=== PATIENT | female | born 1935 | race Caucasian/White ===

== ENCOUNTER 2016-08-11 15:33 | Observation (INO) ==
[2016-08-11] MEDS ORDERED: Ipratropium/Albuterol Neb 3 ML ONE (15:58)
[2016-08-11] MEDS ORDERED: Ipratropium/Albuterol Neb 3 ML IH ONE (16:04)
--- NOTE | 2016-08-11 16:07 | Emergency Department Note ---
Disposition Clinical Impression: Acute exacerbation of chronic obstructive airways disease Disposition: Admitted As Inpatient Condition: Fair Referrals: Haydee Blue DO [Primary Care Provider] - Forms: ED Satisfaction Letter Time of Disposition: 18:11 SOB HPI - General Chief Complaint: ED Shortness of Breath/Dyspnea Stated Complaint: COLT Time Seen by Provider: 08/11/16 16:00 Source: patient, family Limitations: no limitations Nursing Notes Reviewed: Yes Vital Signs Reviewed: Yes - History of Present Illness 81-year-old with history of COPD comes in with increasing shortness of breath. Patient did have a chest x-ray several days ago that was negative. Has increasing shortness of breath at this point in time consistent with her COPD. Pt Subjective Complaint: shortness of breath Onset (ago): day(s) Severity: moderate Consistency/Duration: constant Known history of: COPD Associated symptoms: Reports: cough, wheezing. Denies: chest pain, fever Treatment prior to arrival: none Cough Description: Involuntary Cough Frequency: Intermittent - Related Data Home Medications Medication Instructions Recorded Confirmed Albuterol Sulfate [Albuterol 1 puff IH DAILY PRN 07/19/15 10/04/15 Inhaler] Aspirin [Adult Low Dose Aspirin EC] 81 mg PO DAILY 09/18/15 10/04/15 Cholecalciferol (Vitamin D3) 1,000 unit PO DAILY 09/18/15 10/04/15 [Vitamin D3] Budesonide/Formoterol 80/4.5 1 puff IH 08/04/16 [Symbicort 80/4.5] Docusate Sodium [Stool Softener] 50 mg PO 08/04/16 08/04/16 FLUoxetine HCl [PROzac] 10 mg PO 08/04/16 Ipratropium/Albuterol Sulfate 4 gm IH 08/04/16 [Combivent Respimat Inhal [place]] Previous Rx's Medication Instructions Recorded Albuterol Neb [Proventil Neb] 2.5 mg IH Q8HR #25 inhsol 07/19/15 Albuterol Sulfate [Albuterol 2 puff IH QID #1 inhaler 08/04/16 Inhaler] Benzonatate [Tessalon] 200 mg PO TID PRN #20 capsule 08/04/16 Doxycycline 100 mg PO BID #14 capsule 08/04/16 PredniSONE 20 mg PO BID #10 tablet 08/04/16 Allergies Allergy/AdvReac Type Severity Reaction Status Date / Time No Known Allergies Allergy Verified 08/04/16 14:51 Constitutional: Denies: fever, chills, weakness, weight change Eyes: Denies: eye pain, eye discharge, vision change ENT ED: Denies: ear pain, throat pain, dental pain, hearing loss, epistaxis, congestion, dysphagia Cardiovascular: Reports: dyspnea on exertion. Denies: chest pain, palpitations , edema, syncope Respiratory: Reports: dyspnea. Denies: cough, wheezes, hemoptysis, stridor Gastrointestinal: Denies: abdominal pain, nausea, vomiting, diarrhea, constipation, hematemesis, melena, hematochezia Genitourinary: Denies: dysuria, frequency, hematuria, discharge Musculoskeletal: Denies: back pain, neck pain, arthralgia, myalgia Integumentary: Denies: rash, abrasion, lesions Neurological: Denies: headache, weakness, numbness, paresthesias, confusion, abnormal gait, vertigo Psychiatric: Denies: anxiety, depression, suicidal thoughts, homicidal thoughts , auditory hallucinations, visual hallucinations Endocrine: Denies: fatigue Hematological/Lymphatic: Denies: easy bleeding, easy bruising Allergic/Immunologic: Denies: facial swelling, urticaria Past Medical History - Past Medical History Medical history: Reports: COPD Surgical history: Reports: appendectomy, other Psychiatric history: Reports: no psych history [employer] history: Reports: no [employer] C[employer]TER history - Social History Smoking Status: Current some day smoker Smokeless Tobacco Status: No Alcohol use: Reports: none Drug use: Reports: none Physical Exam - General Limitations: no limitations General appearance: alert - Head Head exam: atraumatic, normocephalic, normal inspection - Eye Eye exam: Present: normal appearance, PERRL, EOMI - ENT ENT exam: normal exam, normal oropharynx, mucous membranes moist - Neck Neck exam: Present: normal inspection, full ROM, trachea midline - Chest Chest inspection: Present: normal inspection, symmetric chest wall rise - Respiratory Respiratory exam: Present: wheezes, accessory muscle use, prolonged expiratory phase - Cardiovascular Cardiovascular exam: Present: regular rate, normal rhythm, normal heart sounds - Abdominal Exam Abdominal exam: Present: soft, Non-Tender. Absent: tenderness, distention, guarding, rebound, rigidity - Extremities Exam Extremities exam: Present: normal inspection, full ROM. Absent: tenderness, pedal edema - Expanded Lower Extremity Exam Neurovascular/Tendon exam: Absent: motor deficit, sensory deficit, tendon deficit Gait: observed and normal - Back Exam Back exam: Present: normal inspection, full ROM. Absent: tenderness - Neurological Exam Neurological exam: Present: alert, oriented X3 - Psychiatric Psychiatric exam: Present: normal affect, normal mood - Skin Skin exam: Present: warm, dry, intact, normal color Course - Reevaluation(s) Reevaluation #1: 81-year-old COPD or comes in with increasing shortness of breath last couple days. Moderate distress on arrival. Given a couple treatments with some improvement. Chest x-ray shows no pneumonia we'll admit with COPD exacerbation. Time: 18:10 - Consultations Consultation #1: Discussed with , admit Time: 18:10 Vital Signs Temperature 98.4 F 08/11/16 15:34 Pulse Rate 78 08/11/16 15:34 Respiratory Rate 18 08/11/16 15:34 Blood Pressure 136/72 08/11/16 15:34 O2 Sat by Pulse Oximetry 97 08/11/16 15:34 Temperature 98.4 F 08/11/16 15:34 Pulse Rate 109 08/11/16 16:48 Respiratory Rate 18 08/11/16 16:48 Blood Pressure 140/64 08/11/16 16:48 O2 Sat by Pulse Oximetry 97 08/11/16 16:48 Oxygen Delivery Oxygen Delivery Nasal Cannula Shortness of Breath/Dyspnea - Lab Data Lab results reviewed: Yes I reviewed the patient's lab results. Result diagrams: 08/11/16 16:29 08/11/16 16:29 Lab Results 08/11/16 08/11/16 08/11/16 Range/Units 16:29 16:29 16:29 WBC 9.3 (4.3-11.1) K/mcL RBC 4.90 (3.82-4.97) M/mcL Hgb 14.2 (11.5-15.4) g/dL Hct 44.0 (35.3-44.9) % MCV 89.8 (83.0-100.0) fL MCH 29.0 (28.0-33.3) pg MCHC 32.3 (31.6-35.5) g/dL RDW 13.6 (11.5-14.5) % Plt Count 283 (140-400) K/mcL MPV 9.4 (9.4-12.4) fL Immature Gran % 0.6 (0-4) % Seg Neutrophils % 77.1 % Lymphocytes % 13.9 % Monocytes % 7.3 % Eosinophils % 0.9 % Basophils % 0.2 % Neutrophils # 7.2 (1.6-8.9) K/mcL Lymphocytes # 1.3 (0.6-4.6) K/mcL Monocytes # 0.7 (0.0-1.3) K/mcL Eosinophils # 0.1 (0.0-0.6) K/mcL Basophils # 0.0 (0.0-0.2) K/mcL Sodium 133 L (136-145) mEq/L Potassium 4.4 (3.5-4.5) mEq/L Chloride 94 L (98-109) mEq/L Carbon Dioxide 30 H (19-29) mEq/L BUN 31 H (7-20) mg/dL Creatinine 0.77 (0.57-1.11) mg/dL Est GFR ( Amer) > 60 (> 60) Est GFR (Non-Af Amer) > 60 (> 60) BUN/Creatinine Ratio 40 H (6-26) Glucose 91 (70-99) mg/dL Calculated Osmolality 282 (280-300) Lactic Acid 1.2 (0.5-2.2) mmol/L Calcium 9.0 (8.6-10.8) mg/dL Troponin I (0-0.03) ng/mL B-Natriuretic Peptide (0-100) pg/mL 08/11/16 08/11/16 Range/Units 16:29 16:29 WBC (4.3-11.1) K/mcL RBC (3.82-4.97) M/mcL Hgb (11.5-15.4) g/dL Hct (35.3-44.9) % MCV (83.0-100.0) fL MCH (28.0-33.3) pg MCHC (31.6-35.5) g/dL RDW (11.5-14.5) % Plt Count (140-400) K/mcL MPV (9.4-12.4) fL Immature Gran % (0-4) % Seg Neutrophils % % Lymphocytes % % Monocytes % % Eosinophils % % Basophils % % Neutrophils # (1.6-8.9) K/mcL Lymphocytes # (0.6-4.6) K/mcL Monocytes # (0.0-1.3) K/mcL Eosinophils # (0.0-0.6) K/mcL Basophils # (0.0-0.2) K/mcL Sodium (136-145) mEq/L Potassium (3.5-4.5) mEq/L Chloride (98-109) mEq/L Carbon Dioxide (19-29) mEq/L BUN (7-20) mg/dL Creatinine (0.57-1.11) mg/dL Est GFR ( Amer) (> 60) Est GFR (Non-Af Amer) (> 60) BUN/Creatinine Ratio (6-26) Glucose (70-99) mg/dL Calculated Osmolality (280-300) Lactic Acid (0.5-2.2) mmol/L Calcium (8.6-10.8) mg/dL Troponin I 0.01 (0-0.03) ng/mL B-Natriuretic Peptide 113 H (0-100) pg/mL - Radiology Data Radiology results reviewed: Yes I reviewed the patient's radiology results. Chest X-Ray 08/11/16 16:04 IMPRESSION: No evidence of acute cardiopulmonary process. Findings consistent with COPD. D/ /11/2016 16:16:59 Mague Tillman MD / Kylie Abarca Interpreting Provider: Mague Tillman MD
[2016-08-11] MEDS ORDERED: methylPREDNISolone 125 MG/2 ML VIAL IVP ONE (16:09)
[2016-08-11 16:42] LABS: Basophils % 0.2 %; Eosinophils # 0.1 K/mcL (0.0-0.6); Eosinophils % 0.9 %; Hemoglobin 14.2 g/dL (11.5-15.4); Immature Granulocytes % 0.6 % (0-4); Lymphocytes # 1.3 K/mcL (0.6-4.6); Lymphocytes % 13.9 %; Mean Corpuscular HGB Conc 32.3 g/dL (31.6-35.5); Mean Corpuscular Volume 89.8 fL (83.0-100.0); Mean Platelet Volume 9.4 fL (9.4-12.4); Monocytes # 0.7 K/mcL (0.0-1.3); Monocytes % 7.3 %; Neutrophils # 7.2 K/mcL (1.6-8.9); Platelet Count 283 K/mcL (140-400); Red Cell Distribution Width 13.6 % (11.5-14.5); Segmented Neutrophils % 77.1 %
[2016-08-11 16:53] LABS: BUN/Creatinine Ratio 40 (6-26); Blood Urea Nitrogen 31 mg/dL (7-20); Carbon Dioxide 30 mEq/L (19-29); Chloride 94 mEq/L (98-109); Glucose 91 mg/dL (70-99); Potassium 4.4 mEq/L (3.5-4.5); Sodium 133 mEq/L (136-145); eGFR For African Americans > 60 (> 60); eGFR For Non-African Americans > 60 (> 60)
[2016-08-11 16:54] LABS: Osmolality,Calculated 282 (280-300)
[2016-08-11] MEDS ORDERED: Ibuprofen 400 MG TABLET PO PRN (21:34)
[2016-08-11] MEDS ORDERED: Naloxone 0.4 MG/ML INJ IVP PRN (21:34)
[2016-08-11] MEDS ORDERED: Ipratropium/Albuterol Neb 3 ML IH SCH (21:36)
[2016-08-11] MEDS ORDERED: Albuterol 2.5 MG/3 ML NEBULIZER IH PRN (21:36)
[2016-08-11] MEDS: Budesonide/Formoterol 160/4.5 MDI IH SCH (22:05)
[2016-08-11] MEDS: Ipratropium/Albuterol Neb 3 ML IH SCH (22:05)
--- NOTE | 2016-08-11 22:07 | Internal Med History&Physical ---
<Nelia Lazaro M - Last Filed: 08/11/16 22:32> Date of Encounter: 08/11/16 Time of Encounter: 22:03 Assessment and Plan (1) Acute exacerbation of chronic obstructive airways disease Current visit: Yes Status: Acute Patient reports she started feeling ill last Sunday with increased shortness of breath and cough. She visited urgent care and her PCP in the last week where she received steroid injections and breathing treatments. She continues to have shortness of breath reports coughing is not as bad she is satting 97% on 2 L but she is tachypneic with respiration rate about 24. She wears 2 L of oxygen at home at baseline. Chest x-ray showed normal pulmonary vasculature no focal consolidation hyperinflated lungs and flattening of hemidiaphragm consistent with COPD. She received DuoNeb treatment and on and 25 mg of IV push Solu-Medrol in the emergency department. 60 mg Solu-Medrol IV push twice a day BiPAP overnight and oxygen per nasal cannula titrate oxygen to maintain saturation between 88-92% DuoNeb treatments 4 times a day Albuterol nebulizer every 2 hours when necessary guafenisin twice a day Will check CRP, if elevated, consider antibiotic treatment (2) Smoker Current visit: No Status: Acute Patient reports she quit smoking last Sunday. Offered congratulations and encouragement. Continue offering patient support for her smoking cessation goals (3) DVT prophylaxis Current visit: No Status: Acute Ambulate with assist as tolerated Antiembolic stockings Lovenox 40 mg subcutaneous daily Internal Medicine - H&P: HPI Chief complaint: shortness of breath Admitted From: Emergency Dept Plans for Post Hospital Care: Home History of present illness: Ms. Boyer is a 81 year old female with COPD presented to the emergency department with increasing shortness of breath, cough, wheezing. She reports she started feeling ill last Sunday in to urgent care where she was treated for bronchitis steroid injection and breathing treatment. She continued to feel ill visit her PCP earlier this week where she had another steroid injection. Patient reports she needs to sit up to sleep and was unable to sleep last night due to her shortness of breath. She reports she has not been coughing very much in the last several days. Evaluation in the ED revealed normal white blood cell count of 9.3, lactic acid of 1.2, slightly elevated BNP of 113, normal troponin of 0.01. Chest x-ray showed normal pulmonary vasculature, no focal consolidation, hyperinflated lungs with flattening of hemidiaphragms, consistent with COPD. No evidence of pleural effusion or pneumothorax. She was given 125 mg of IV push Solu-Medrol, DuoNeb treatment. On exam patient is alert and oriented, she is tachypneic with respiration rate of approximately 24. She is satting 97% on 2 L. Lungs sound clear to auscultation. Heart is regular rate and rhythm. Past Med Surg Social Fam HX - Past Medical History Medical history: COPD Psychiatric history: no psych history - Past Surgical History Surgical History: appendectomy, other, vascular surgery - Social History Smoking Status: Former smoker Smokeless Tobacco Status: No Alcohol use: none Drug use: none - Family History Daughter Name: Kylie Edwards Age: 62 Living Status: Still Living Hx Family Cardiac Disorders: No Hx Family Respiratory Disorders: No Hx Family Cancer: No Hx Family GI Disorders: No Hx Family Genitourinary Disorders: No Hx Family Endocrine Disorder: No Hx Family Musculoskeletal Disorders: No Hx Family Neuromuscular Disorders: No Hx Family Neurologic Disorders: No Hx Family HEENT Disorders: No Hx Family Autoimmune Disorders: Yes (Rhuemitoid Arthritis) Hx Family Reproductive Disorders: No Hx Family Psychosocial Disorders: No Hx Family Medical Disorders: No Internal Medicine - H&P: Meds Aspirin [Adult Low Dose Aspirin EC] 81 mg PO DAILY 09/18/15 [History] Cholecalciferol (Vitamin D3) [Vitamin D3] 2,000 unit PO DAILY 09/18/15 [History] FLUoxetine HCl [PROzac] 10 mg PO QAM 08/04/16 [History] Ipratropium/Albuterol Sulfate [Combivent Respimat Inhal [place]] 1 puff IH QID PRN 08/04/16 [History] Acetaminophen/Diphenhydramine [Acetaminophen Pm [place]] 1 each PO HS 08/11/16 [ History] Albuterol Sulfate [Albuterol Inhaler] 2 puff IH Q4H PRN 08/11/16 [History] Budesonide/Formoterol 160/4.5 [Symbicort 160/4.5] 2 puff IH BIDR 08/11/16 [ History] Ipratropium/Albuterol Neb [Duoneb] 3 ml IH Q4H PRN 08/11/16 [History] Naproxen Sodium [Aleve] 220 mg PO Q12H PRN 08/11/16 [History] Allergies No Known Allergies Allergy (Verified 08/04/16 14:51) All Systems PM: A 10-system review of systems was performed and is negative for pertinent findings except as documented above in the HPI. - Constitutional Constitutional: no chills, no fever(s), no night sweats - EENT Eyes: no change in vision, no discharge, no pain, no photophobia Ears: no ear discharge, no ear pain, no tinnitus Nose, mouth and throat: no dysphagia, no nasal discharge, no neck pain, no sore throat - Cardiovascular Cardiovascular ROS IM: dyspnea, dyspnea on exertion, no chest pain, no diaphoresis, no lightheadedness, no palpitations, no syncope - Respiratory Respiratory: cough, dyspnea, dyspnea on exertion, wheezing, no excessive phlegm production - Gastrointestinal Gastrointestinal: no abdominal pain, no diarrhea, no hematemesis, no hematochezia, no melena, no nausea, no vomiting - Genitourinary Genitourinary: no change in urinary stream, no dysuria, no flank pain, no hematuria - Musculoskeletal Musculoskeletal ROS IM: no numbness, no tingling - Integumentary Integumentary IM: no rash, no unusual bruising - Neurological Neurological ROS: no confusion, no convulsions, no focal weakness, no numbness, no tingling, no tremor(s) - Hematologic/Lymphatic Hematologic/Lymphatic: no easy bruising - Constitutional Vitals: Temp Pulse Resp BP Pulse Ox 97.7 F 107 19 156/71 95 08/11/16 19:26 08/11/16 19:26 08/11/16 19:26 08/11/16 19:26 08/11/16 19:26 General appearance: Present: A&O X 3, no acute distress - Head Head exam: Present: atraumatic, normocephalic - Eye Eye exam: Present: PERRL, conjuntiva pink, sclera anicteric Pupils: Present: PERRL - Neck Neck exam general surgery: Present: supple, trachea midline. Absent: lymphadenopathy - Respiratory Respiratory exam: Present: CTAB, prolonged expiratory phase, tachypnea. Absent : accessory muscle use, rales, rhonchi, wheezes - Cardiovascular Cardiovascular exam: Present: RRR, +S1, +S2. Absent: diastolic murmur, gallop, rubs, systolic murmur - GI/Abdominal GI/Abdominal exam: Present: normal bowel sounds, soft, no peritoneal signs. Absent: distended, tenderness - Extremities Exam Extremities exam: Present: warm, radial pulses palpable and symetrical. Absent : calf tenderness, cyanotic, pedal edema - Neurological Exam Neurological exam: Present: CN II-XII intact, oriented X3, no focal deficits. Absent: facial droop, speech deficit - Skin Skin exam: Present: dry, intact Internal Med - H&P Results - Labs CBC & Chem 7: 08/11/16 16:29 08/11/16 16:29 Labs: All Lab Results (24 Hours) 08/11/16 08/11/16 08/11/16 Range/Units 16:29 16:29 16:29 WBC 9.3 (4.3-11.1) K/mcL RBC 4.90 (3.82-4.97) M/mcL Hgb 14.2 (11.5-15.4) g/dL Hct 44.0 (35.3-44.9) % MCV 89.8 (83.0-100.0) fL MCH 29.0 (28.0-33.3) pg MCHC 32.3 (31.6-35.5) g/dL RDW 13.6 (11.5-14.5) % Plt Count 283 (140-400) K/mcL MPV 9.4 (9.4-12.4) fL Immature Gran % 0.6 (0-4) % Seg Neutrophils % 77.1 % Lymphocytes % 13.9 % Monocytes % 7.3 % Eosinophils % 0.9 % Basophils % 0.2 % Neutrophils # 7.2 (1.6-8.9) K/mcL Lymphocytes # 1.3 (0.6-4.6) K/mcL Monocytes # 0.7 (0.0-1.3) K/mcL Eosinophils # 0.1 (0.0-0.6) K/mcL Basophils # 0.0 (0.0-0.2) K/mcL Sodium 133 L (136-145) mEq/L Potassium 4.4 (3.5-4.5) mEq/L Chloride 94 L (98-109) mEq/L Carbon Dioxide 30 H (19-29) mEq/L BUN 31 H (7-20) mg/dL Creatinine 0.77 (0.57-1.11) mg/dL Est GFR ( Amer) > 60 (> 60) Est GFR (Non-Af Amer) > 60 (> 60) BUN/Creatinine Ratio 40 H (6-26) Glucose 91 (70-99) mg/dL Calculated Osmolality 282 (280-300) Lactic Acid 1.2 (0.5-2.2) mmol/L Calcium 9.0 (8.6-10.8) mg/dL Troponin I (0-0.03) ng/mL B-Natriuretic Peptide (0-100) pg/mL 08/11/16 08/11/16 Range/Units 16:29 16:29 WBC (4.3-11.1) K/mcL RBC (3.82-4.97) M/mcL Hgb (11.5-15.4) g/dL Hct (35.3-44.9) % MCV (83.0-100.0) fL MCH (28.0-33.3) pg MCHC (31.6-35.5) g/dL RDW (11.5-14.5) % Plt Count (140-400) K/mcL MPV (9.4-12.4) fL Immature Gran % (0-4) % Seg Neutrophils % % Lymphocytes % % Monocytes % % Eosinophils % % Basophils % % Neutrophils # (1.6-8.9) K/mcL Lymphocytes # (0.6-4.6) K/mcL Monocytes # (0.0-1.3) K/mcL Eosinophils # (0.0-0.6) K/mcL Basophils # (0.0-0.2) K/mcL Sodium (136-145) mEq/L Potassium (3.5-4.5) mEq/L Chloride (98-109) mEq/L Carbon Dioxide (19-29) mEq/L BUN (7-20) mg/dL Creatinine (0.57-1.11) mg/dL Est GFR ( Amer) (> 60) Est GFR (Non-Af Amer) (> 60) BUN/Creatinine Ratio (6-26) Glucose (70-99) mg/dL Calculated Osmolality (280-300) Lactic Acid (0.5-2.2) mmol/L Calcium (8.6-10.8) mg/dL Troponin I 0.01 (0-0.03) ng/mL B-Natriuretic Peptide 113 H (0-100) pg/mL <Paula Narayanan - Last Filed: 08/12/16 19:35> Date of Encounter: 08/11/16 Internal Medicine - H&P: HPI History of present illness: Ms. Boyer is a 81 year old female All Systems PM: A 10-system review of systems was performed and is negative for pertinent findings except as documented above in the HPI. - Constitutional Vitals: Temp Pulse Resp BP Pulse Ox 97.5 F L 103 17 98/66 95 08/12/16 18:52 08/12/16 18:52 08/12/16 18:52 08/12/16 18:52 08/12/16 18:52 Internal Med - H&P Results - Labs CBC & Chem 7: 08/12/16 04:29 08/12/16 04:29 Labs: Short CBC 08/12/16 Range/Units 04:29 WBC 5.0 (4.3-11.1) K/mcL Hgb 13.9 (11.5-15.4) g/dL Hct 42.6 (35.3-44.9) % Plt Count 287 (140-400) K/mcL Neutrophils # 4.1 (1.6-8.9) K/mcL BMP 08/12/16 04:29 Sodium 134 L Potassium 5.2 H Chloride 94 L Carbon Dioxide 30 H BUN 23 H Creatinine 0.75 Glucose 139 H Calcium 9.0 - Attending Attestation I examined this patient and my medical decision-making was reviewed with the TANK BUILDER HELPER/PA/Advanced Practice Nurse/Resident Physician. I agree with the documented findings, disposition and treatment plan as described except to the extent set forth below. 81 Y/F with h/o COPD, chronic resp failure - presents with shortness of breath. No significant expectoration. wheeze on exam. Treat for COPD exacerbation and acute on chronic resp failure. Steroids, bronchodilators, mucinex. Does not seem infective exacerbation at this time, and hence no antibiotics started.
[2016-08-12] MEDS: Ipratropium/Albuterol Neb 3 ML IH SCH ×4 (04:10→22:36)
[2016-08-12 04:54] LABS: Basophils % 0.2 %; Hematocrit 42.6 % (35.3-44.9); Hemoglobin 13.9 g/dL (11.5-15.4); Immature Granulocytes % 0.6 % (0-4); Lymphocytes # 0.8 K/mcL (0.6-4.6); Lymphocytes % 15.2 %; Mean Corpuscular HGB Conc 32.6 g/dL (31.6-35.5); Mean Corpuscular Hemoglobin 29.1 pg (28.0-33.3); Mean Corpuscular Volume 89.3 fL (83.0-100.0); Mean Platelet Volume 9.6 fL (9.4-12.4); Monocytes # 0.1 K/mcL (0.0-1.3); Monocytes % 1.4 %; Neutrophils # 4.1 K/mcL (1.6-8.9); Platelet Count 287 K/mcL (140-400); Red Blood Count 4.77 M/mcL (3.82-4.97); Red Cell Distribution Width 13.6 % (11.5-14.5); Segmented Neutrophils % 82.6 %
[2016-08-12 05:22] LABS: BUN/Creatinine Ratio 31 (6-26); Blood Urea Nitrogen 23 mg/dL (7-20); Carbon Dioxide 30 mEq/L (19-29); Chloride 94 mEq/L (98-109); Glucose 139 mg/dL (70-99); Osmolality,Calculated 284 (280-300); Potassium 5.2 mEq/L (3.5-4.5); Sodium 134 mEq/L (136-145); eGFR For African Americans > 60 (> 60); eGFR For Non-African Americans > 60 (> 60)
[2016-08-12 05:33] LABS: Platelet Estimate Normal (Normal); Reactive Lymphocytes Present (Not Present)
[2016-08-12] MEDS: *HR* Enoxaparin 40 MG/0.4 ML SYRINGE SQ SCH (06:32)
[2016-08-12] MEDS: FLUoxetine HCl 10 MG CAPSULE PO SCH (09:07)
[2016-08-12] MEDS: Aspirin Enteric Coated 81 MG Tablet PO SCH (09:08)
[2016-08-12] MEDS ORDERED: NON-FORMULARY MEDICATION 1 EACH EACH (Ipratropium/Albuterol Sulfate [Combivent Respimat In IH PRN (09:52)
[2016-08-12] MEDS ORDERED: Magnesium Sulfate 1 GM in D5% in Water 100 ML IVPB ONE (09:56)
[2016-08-12] MEDS ORDERED: Ipratropium 1 PUFF INHALER IH PRN (09:58)
[2016-08-12] MEDS: Budesonide/Formoterol 160/4.5 MDI IH SCH ×2 (10:03→22:35)
[2016-08-12] MEDS: methylPREDNISolone 125 MG/2 ML VIAL IVP SCH ×3 (11:35→23:55)
[2016-08-12] MEDS: Levofloxacin 500 MG/100 ML 500 MG/100 ML BAG IVPB SCH (11:36)
--- NOTE | 2016-08-12 19:37 | Internal Med Progress Note ---
Date of Encounter: 08/12/16 Time of Encounter: 10:00 - Subjective Interval history: Patient is 81-year-old female admitted as a COPD exacerbation. Past medical history is significant for COPD. Patient was seen and examined. She is awake alert and oriented 3. Still in acute respiratory distress. Vitals are stable. We will continue antibiotic, steroid, and bronchodilator treatment. Closely monitor patient (1) Acute exacerbation of chronic obstructive airways disease Current visit: Yes Status: Acute Patient reports she started feeling ill last Sunday with increased shortness of breath and cough. She visited urgent care and her PCP in the last week where she received steroid injections and breathing treatments. She continues to have shortness of breath reports coughing is not as bad she is satting 97% on 2 L but she is tachypneic with respiration rate about 24. She wears 2 L of oxygen at home at baseline. Chest x-ray showed normal pulmonary vasculature no focal consolidation hyperinflated lungs and flattening of hemidiaphragm consistent with COPD. She received DuoNeb treatment and on and 25 mg of IV push Solu-Medrol in the emergency department. 60 mg Solu-Medrol IV push twice a day BiPAP overnight and oxygen per nasal cannula titrate oxygen to maintain saturation between 88-92% DuoNeb treatments 4 times a day Albuterol nebulizer every 2 hours when necessary guafenisin twice a day Levaquin 500 daily (2) Smoker Current visit: No Status: Acute Patient reports she quit smoking last Sunday. Offered congratulations and encouragement. Continue offering patient support for her smoking cessation goals (3) DVT prophylaxis Current visit: No Status: Acute Ambulate with assist as tolerated Antiembolic stockings Lovenox 40 mg subcutaneous daily - Constitutional Vitals: Temp Pulse Resp BP Pulse Ox 97.5 F L 103 17 98/66 95 08/12/16 18:52 08/12/16 18:52 08/12/16 18:52 08/12/16 18:52 08/12/16 18:52 General appearance: Present: A&O X 3, no acute distress - Head Head exam: Present: atraumatic, normocephalic - Eye Eye exam: Present: PERRL, conjuntiva pink, sclera anicteric Pupils: Present: PERRL - Neck Neck exam general surgery: Present: supple, trachea midline. Absent: lymphadenopathy - Respiratory Respiratory exam: Present: CTAB, wheezes (Diffused wheezes bilaterally). Absent : accessory muscle use, rales, rhonchi - Cardiovascular Cardiovascular exam: Present: RRR, +S1, +S2. Absent: diastolic murmur, gallop, rubs, systolic murmur - GI/Abdominal GI/Abdominal exam: Present: normal bowel sounds, soft, no peritoneal signs. Absent: distended, tenderness - Extremities Exam Extremities exam: Present: warm, radial pulses palpable and symetrical. Absent : calf tenderness, cyanotic, pedal edema - Neurological Exam Neurological exam: Present: CN II-XII intact, oriented X3, no focal deficits. Absent: pronater drift, facial droop, speech deficit - Skin Skin exam: Present: dry, intact Internal Medicine: Result - Labs CBC & Chem 7: 08/12/16 04:29 08/12/16 04:29 Labs: Short CBC 08/12/16 Range/Units 04:29 WBC 5.0 (4.3-11.1) K/mcL Hgb 13.9 (11.5-15.4) g/dL Hct 42.6 (35.3-44.9) % Plt Count 287 (140-400) K/mcL Neutrophils # 4.1 (1.6-8.9) K/mcL BMP 08/12/16 04:29 Sodium 134 L Potassium 5.2 H Chloride 94 L Carbon Dioxide 30 H BUN 23 H Creatinine 0.75 Glucose 139 H Calcium 9.0 - VTE Documentation of Mechanical Device: Graduated compression elastic hosiery Consult Discharge Plan - Plan Referrals: Haydee Blue DO [Primary Care Provider] -
[2016-08-12] MEDS ORDERED: methylPREDNISolone 125 MG/2 ML VIAL IVP SCH (23:55)
[2016-08-13] MEDS: Ipratropium/Albuterol Neb 3 ML IH SCH ×4 (03:24→21:29)
[2016-08-13] MEDS: methylPREDNISolone 125 MG/2 ML VIAL IVP SCH (06:29)
[2016-08-13] MEDS: *HR* Enoxaparin 40 MG/0.4 ML SYRINGE SQ SCH (06:29)
[2016-08-13 07:34] LABS: Basophils % 0.1 %; Hematocrit 42.6 % (35.3-44.9); Hemoglobin 13.5 g/dL (11.5-15.4); Immature Granulocytes % 0.7 % (0-4); Lymphocytes # 0.8 K/mcL (0.6-4.6); Lymphocytes % 8.8 %; Mean Corpuscular HGB Conc 31.7 g/dL (31.6-35.5); Mean Corpuscular Hemoglobin 28.7 pg (28.0-33.3); Mean Corpuscular Volume 90.4 fL (83.0-100.0); Mean Platelet Volume 9.7 fL (9.4-12.4); Monocytes # 0.3 K/mcL (0.0-1.3); Monocytes % 2.9 %; Neutrophils # 7.9 K/mcL (1.6-8.9); Platelet Count 317 K/mcL (140-400); Red Blood Count 4.71 M/mcL (3.82-4.97); Red Cell Distribution Width 13.6 % (11.5-14.5); Segmented Neutrophils % 87.5 %
[2016-08-13 07:46] LABS: BUN/Creatinine Ratio 32 (6-26); Blood Urea Nitrogen 25 mg/dL (7-20); Calcium 8.9 mg/dL (8.6-10.8); Carbon Dioxide 30 mEq/L (19-29); Chloride 96 mEq/L (98-109); Glucose 145 mg/dL (70-99); Osmolality,Calculated 287 (280-300); Potassium 4.4 mEq/L (3.5-4.5); Sodium 135 mEq/L (136-145); eGFR For African Americans > 60 (> 60); eGFR For Non-African Americans > 60 (> 60)
[2016-08-13] MEDS: FLUoxetine HCl 10 MG CAPSULE PO SCH (08:17)
[2016-08-13] MEDS: Aspirin Enteric Coated 81 MG Tablet PO SCH (08:18)
[2016-08-13] MEDS: Levofloxacin 500 MG/100 ML 500 MG/100 ML BAG IVPB SCH (08:18)
[2016-08-13] MEDS: Budesonide/Formoterol 160/4.5 MDI IH SCH ×2 (11:32→21:29)
[2016-08-13] MEDS: predniSONE 20 MG TABLET PO SCH (12:59)
--- NOTE | 2016-08-13 13:29 | Electrocardiograph Report ---
[place] [id number] Test Date: 2016-08-11 Pat Name: Tiana Boyer Department: 104 Room: 3B Gender: F Social Media Manager: : 1935 Requested By: Ron Leahy Order Number: [id number] Reading MD: Eladia France Measurements Intervals [place] Rate: 115 P: 72 ME: 173 QRS: 55 QRSD: 82 T: 70 QT: 316 QTc: 384 Interpretive Statements SINUS TACHYCARDIA WITH FREQUENT SUPRAVENTRICULAR PREMATURE COMPLEXES VENTRICULAR PREMATURE COMPLEXES ABNORMAL RHYTHM ECG Electronically Signed On 08-13-2016 13:28:05 EST by Eladia France
[2016-08-13] MEDS ORDERED: Ondansetron 4 MG/2 ML VIAL IVP PRN (18:19)
--- NOTE | 2016-08-13 18:48 | Internal Med Progress Note ---
Date of Encounter: 08/13/16 Time of Encounter: 10:00 - Assessment and plan (1) Acute exacerbation of chronic obstructive airways disease Current Visit: Yes Status: Acute (2) DVT prophylaxis Current Visit: No Status: Acute (3) Smoker Current Visit: No Status: Acute - Time Spent With Patient 25 - 35 minutes - Subjective Interval history: Patient is 81-year-old female admitted as a COPD exacerbation. Past medical history is significant for COPD. Patient was seen and examined. She is awake alert and oriented 3. Not in acute respiratory distress. Vitals are stable. We will continue antibiotic, steroid, and bronchodilator treatment. Taper down steroid to po. Closely monitor patient (1) Acute exacerbation of chronic obstructive airways disease Current visit: Yes Status: Acute Patient reports she started feeling ill last Sunday with increased shortness of breath and cough. She visited urgent care and her PCP in the last week where she received steroid injections and breathing treatments. She continues to have shortness of breath reports coughing is not as bad she is satting 97% on 2 L but she is tachypneic with respiration rate about 24. She wears 2 L of oxygen at home at baseline. Chest x-ray showed normal pulmonary vasculature no focal consolidation hyperinflated lungs and flattening of hemidiaphragm consistent with COPD. She received DuoNeb treatment and on and 25 mg of IV push Solu-Medrol in the emergency department. Prednisone 40mg po qd BiPAP overnight and oxygen per nasal cannula titrate oxygen to maintain saturation between 88-92% DuoNeb treatments 4 times a day Albuterol nebulizer every 2 hours when necessary guafenisin twice a day Levaquin 500 daily Clinically improved. (2) Smoker Current visit: No Status: Acute Patient reports she quit smoking last Sunday. Offered congratulations and encouragement. Continue offering patient support for her smoking cessation goals (3) DVT prophylaxis Current visit: No Status: Acute Ambulate with assist as tolerated Antiembolic stockings Lovenox 40 mg subcutaneous daily - Constitutional Vitals: Temp Pulse Resp BP Pulse Ox 97.8 F 110 28 175/87 96 08/13/16 15:25 08/13/16 15:25 08/13/16 16:37 08/13/16 15:25 08/13/16 16:37 General appearance: Present: A&O X 3, no acute distress - Head Head exam: Present: atraumatic, normocephalic - Eye Eye exam: Present: PERRL, conjuntiva pink, sclera anicteric Pupils: Present: PERRL - Neck Neck exam general surgery: Present: supple, trachea midline. Absent: lymphadenopathy - Respiratory Respiratory exam: Present: CTAB. Absent: accessory muscle use, rales, rhonchi, wheezes - Cardiovascular Cardiovascular exam: Present: RRR, +S1, +S2. Absent: diastolic murmur, gallop, rubs, systolic murmur - GI/Abdominal GI/Abdominal exam: Present: normal bowel sounds, soft, no peritoneal signs. Absent: distended, tenderness - Extremities Exam Extremities exam: Present: warm, radial pulses palpable and symetrical. Absent : calf tenderness, cyanotic, pedal edema - Neurological Exam Neurological exam: Present: CN II-XII intact, oriented X3, no focal deficits. Absent: pronater drift, facial droop, speech deficit - Skin Skin exam: Present: dry, intact Internal Medicine: Result - Labs CBC & Chem 7: 08/13/16 07:11 08/13/16 07:11 Labs: Short CBC 08/13/16 Range/Units 07:11 WBC 9.0 D (4.3-11.1) K/mcL Hgb 13.5 (11.5-15.4) g/dL Hct 42.6 (35.3-44.9) % Plt Count 317 (140-400) K/mcL Neutrophils # 7.9 (1.6-8.9) K/mcL BMP 08/13/16 07:11 Sodium 135 L Potassium 4.4 Chloride 96 L Carbon Dioxide 30 H BUN 25 H Creatinine 0.77 Glucose 145 H Calcium 8.9 - VTE Documentation of Mechanical Device: Graduated compression elastic hosiery Consult Discharge Plan - Plan Referrals: Haydee Blue DO [Primary Care Provider] -
[2016-08-13] MEDS ORDERED: Famotidine 20 MG/2 ML VIAL IVP ONE (22:23)
[2016-08-13] MEDS ORDERED: Benzonatate 100 MG CAPSULE PO PRN (22:23)
[2016-08-14] MEDS: Ipratropium/Albuterol Neb 3 ML IH SCH ×2 (03:28→11:25)
[2016-08-14] MEDS: *HR* Enoxaparin 40 MG/0.4 ML SYRINGE SQ SCH (06:30)
[2016-08-14] MEDS: FLUoxetine HCl 10 MG CAPSULE PO SCH (08:32)
[2016-08-14] MEDS: predniSONE 20 MG TABLET PO SCH (08:32)
[2016-08-14] MEDS: Aspirin Enteric Coated 81 MG Tablet PO SCH (08:32)
[2016-08-14] MEDS ORDERED: Famotidine 20 MG TABLET PO SCH ×2 (09:00)
[2016-08-14] MEDS ORDERED: Levofloxacin 250 MG/50 ML 250 MG/50 ML BAG IVPB SCH (09:00)
[2016-08-14 11:00] VITALS: BP 123/82
[2016-08-14] MEDS: Budesonide/Formoterol 160/4.5 MDI IH SCH (11:25)
--- NOTE | 2016-08-14 11:26 | Discharge Summary ---
Date of Encounter: 08/14/16 Time of Encounter: 10:30 - Discharge Diagnosis (1) Acute exacerbation of chronic obstructive airways disease Priority: Primary Status: Acute (2) DVT prophylaxis Priority: Secondary Status: Acute (3) Smoker Priority: Secondary Status: Acute - Discharge Medications Prescriptions: Levofloxacin [Levaquin] 250 mg PO DAILY #7 tablet PredniSONE 40 mg PO DAILY #14 tablet Home Medications: Aspirin [Adult Low Dose Aspirin EC] 81 mg PO DAILY 09/18/15 [History] Cholecalciferol (Vitamin D3) [Vitamin D3] 2,000 unit PO DAILY 09/18/15 [History] FLUoxetine HCl [Prozac] 10 mg PO QAM 08/04/16 [History] Ipratropium/Albuterol Sulfate [Combivent Respimat Inhal [place]] 1 puff IH QID PRN 08/04/16 [History] Acetaminophen/Diphenhydramine [Acetaminophen Pm Caplet] 1 each PO HS 08/11/16 [ History] Albuterol Sulfate [Albuterol Inhaler] 2 puff IH Q4H PRN 08/11/16 [History] Budesonide/Formoterol 160/4.5 [Symbicort 160/4.5] 2 puff IH BIDR 08/11/16 [ History] Ipratropium/Albuterol Neb [Duoneb] 3 ml IH Q4H PRN 08/11/16 [History] Naproxen Sodium [Aleve] 220 mg PO Q12H PRN 08/11/16 [History] Levofloxacin [Levaquin] 250 mg PO DAILY #7 tablet 08/14/16 [Rx] PredniSONE 40 mg PO DAILY #14 tablet 08/14/16 [Rx] Allergies/Adverse Reactions: Allergies No Known Allergies Allergy (Verified 08/04/16 14:51) Date of admission: 08/11/16 18:28 Primary care physician: Ursula Lott Consults: 08/14/16 09:11 Consult to Toggler [CONS] Routine Reason for SW Consult: pt has home o2 discharge planning. Discharging clinician: Briseyda Jefferson Anticipated date of discharge: 08/14/16 - Patient Status Disposition: Home, Self-Care Condition: Fair Functional capacity at discharge: uses cane/walker Overall status at discharge: patient is back to baseline - Discharge Instructions Follow Up With: Haydee Blue DO [Primary Care Provider] - - Diet and Activity Activity: increase activity as tolerated Diet: advance to your usual diet Interval History: Ms. Boyer is a 81 year old female with COPD presented to the emergency department with increasing shortness of breath, cough, wheezing. She reports she started feeling ill last Sunday in to urgent care where she was treated for bronchitis steroid injection and breathing treatment. She continued to feel ill visit her PCP earlier this week where she had another steroid injection. Patient reports she needs to sit up to sleep and was unable to sleep last night due to her shortness of breath. She reports she has not been coughing very much in the last several days. Evaluation in the ED revealed normal white blood cell count of 9.3, lactic acid of 1.2, slightly elevated BNP of 113, normal troponin of 0.01. Chest x-ray showed normal pulmonary vasculature, no focal consolidation, hyperinflated lungs with flattening of hemidiaphragms, consistent with COPD. No evidence of pleural effusion or pneumothorax. She was given 125 mg of IV push Solu-Medrol, DuoNeb treatment. On exam patient is alert and oriented, she is tachypneic with respiration rate of approximately 24. She is satting 97% on 2 L. Lungs sound clear to auscultation. Heart is regular rate and rhythm. Hospital course: Ms. Boyer is a 81 year old female admitted as COPD exacerbation. She was placed on cardiac and pulmonary monitoring, antibiotic, steroid, and bronchodilator. After treatment, patient's condition has improved. Her wheezing has disappeared. We will continue antibiotics by mouth and tapering down steroids and discharge patient home today. I saw and examined the patient. She is awake alert, oriented 3. She is in no acute respiratory distress. Oxygen saturation 99% on 2 L oxygen nasal cannula. Vital signs stable. Patient can walk with assistance, which is her baseline. On exam, her lungs are clear, no wheezing or rhonchi. Patient has home oxygen already. Patient with discharge home and follow-up with PCP as outpatient. Time spent discussing smoking cessation with patient: 3 to 10 minutes - Time Spent with Patient Total time spent providing and/or coordinating discharge services: 40 minutes Greater than 30 minutes - Constitutional Vitals: Temp Pulse Resp BP Pulse Ox 97.6 F 105 16 123/82 98 08/14/16 10:57 08/14/16 10:57 08/14/16 10:57 08/14/16 10:57 08/14/16 10:57 General appearance: Present: A&O X 3, no acute distress - Head Head exam: Present: atraumatic, normocephalic - Eye Eye exam: Present: PERRL, conjuntiva pink, sclera anicteric Pupils: Present: PERRL - Neck Neck exam general surgery: Present: supple, trachea midline. Absent: lymphadenopathy - Respiratory Respiratory exam: Present: CTAB. Absent: accessory muscle use, rales, rhonchi, wheezes - Cardiovascular Cardiovascular exam: Present: RRR, +S1, +S2. Absent: diastolic murmur, gallop, rubs, systolic murmur - GI/Abdominal GI/Abdominal exam: Present: normal bowel sounds, soft, no peritoneal signs. Absent: distended, tenderness - Extremities Exam Extremities exam: Present: warm, radial pulses palpable and symetrical. Absent : calf tenderness, cyanotic, pedal edema - Neurological Exam Neurological exam: Present: CN II-XII intact, oriented X3, no focal deficits. Absent: pronater drift, facial droop, speech deficit - Skin Skin exam: Present: dry, intact - VTE Documentation of Mechanical Device: Graduated compression elastic hosiery
[2016-08-15] MEDS ORDERED: levoFLOXacin 250 MG TABLET PO SCH (09:00)
== END 2016-08-14 13:25 | disposition home or self-care (01) ==
LOC: EMEROO 15:33 → 2ANU 15:33 → SUATTDRO 18:28 → 2ANU 18:29 → 3BNU 18:33
PROVIDERS: ADMIT Family Medicine; ATTEND Internal Medicine

== ENCOUNTER 2017-09-11 06:12 | Inpatient (IN) ==
[2017-09-11] MEDS ORDERED: CeFAZolin Syr 2,000MG/20 ML 2,000 MG/20 ML SYRINGE IVPB ONE (06:28)
[2017-09-11] MEDS ORDERED: Albuterol 2.5 MG/3 ML NEBULIZER IH ONE (06:28)
[2017-09-11] MEDS ORDERED: Plasma-Lyte A (PH 7.4) 1,000 ML IVC SCH (06:30)
[2017-09-11] MEDS ORDERED: Lidocaine -MPF 1% 2 ML VIAL ONE (07:09)
[2017-09-11] MEDS ORDERED: Dexamethasone 4 MG/ML VIAL ONE (07:10)
[2017-09-11] MEDS ORDERED: *HR* Propofol 200 MG/20 ML VIAL IVP ONE (07:10)
[2017-09-11] MEDS ORDERED: Lidocaine -MPF 2% 2 ML VIAL ONE (07:10)
[2017-09-11] MEDS ORDERED: *HR* Rocuronium Bromide 50 MG/5 ML VIAL ONE (07:10)
[2017-09-11] MEDS ORDERED: Ondansetron 4 MG/2 ML VIAL ONE (07:10)
[2017-09-11] MEDS ORDERED: *HR* FentaNYL (PF) 100 MCG/2 ML VIAL ONE (07:10)
[2017-09-11] MEDS ORDERED: *HR* Remifentanil 2 MG VIAL IVP ONE (07:11)
[2017-09-11] MEDS ORDERED: Heparin 1,000 UNITS/500 mL 500 ML ONE (07:11)
--- NOTE | 2017-09-11 07:13 | Anesthesia Evaluation PreOp ---
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: Denies Any Significant HX Other Medical History: Other (Rheumatoid arthritis - steroid dependent (10 mg prednisone per day for at least the past 1 year)) Anesthesia History: No Prior Anesthetic Complications Alcohol Use: none Drug use: none Medications and Allergies Cholecalciferol (Vitamin D3) [Vitamin D3] 1,000 unit PO BID 09/18/15 [History] FLUoxetine HCl [Prozac] 10 mg PO QAM 08/04/16 [History] Budesonide/Formoterol 160/4.5 [Symbicort 160/4.5] 2 puff IH BIDR 08/11/16 [ History] Docusate [Colace] 100 mg PO BID 10/30/16 [History] Multivitamin [One Daily Essential] 1 each PO DAILY 10/30/16 [History] Oxygen 2 l NS AD 10/30/16 [History] Naproxen [Naprosyn] 500 mg PO Q12H PRN 04/11/17 [History] Tiotropium [place] [Spiriva Respimat] 4 gm IH DAILY 04/11/17 [History] predniSONE [PredniSONE] 10 mg PO DAILY 04/11/17 [History] Aspirin [Lo-Dose Aspirin EC] 81 mg PO DAILY 08/31/17 [History] Albuterol Sulfate [Albuterol Inhaler] 2 puff IH Q4HR PRN 09/11/17 [History] Calcium Carbonate [Calcium] 500 mg PO DAILY 09/11/17 [History] 3 Allergy/AdvReac Type Severity Reaction Status Date / Time No Known Allergies Allergy Verified 09/11/17 06:35 - Meds/Allergy Pre-op Review Medications Reviewed: Yes Allergies Reviewed: Yes Beta Blockers on Current Med List: No Anesthesia Results - Labs Laboratory Tests 08/24/17 08/24/17 08/24/17 10:46 10:46 10:46 WBC 8.6 Hgb 11.2 L Hct 36.3 Plt Count 377 PT 10.6 INR 1.0 APTT 25.9 L Sodium 140 Potassium 4.3 Chloride 103 Carbon Dioxide 29 BUN 21 Creatinine 0.79 Est GFR ( Amer) > 60 Est GFR (Non-Af Amer) > 60 BUN/Creatinine Ratio 27 H Glucose 88 Calculated Osmolality 292 Calcium 9.7 - Imaging EKG: report reviewed, image reviewed (SINUS RHYTHM WITH OCCASIONAL SUPRAVENTRICULAR PREMATURE COMPLEXES POSSIBLE RIGHT VENTRICULAR CONDUCTION DELAY ) Additional studies: TTE: EV/EV echocardiogram Impressions: LVEF 60%. Normal LV chamber size, wall thickness and function. Indeterminate diastolic function. Normal right ventricular structure and function. Severely dilated left atrium. Moderate mitral annular calcification. Mild mitral regurgitation. Mild tricuspid regurgitation. Severe pulmonary hypertension. Estimated RVSP is 60 mmHg. Anesthesia Exam Last Vital Signs Temp 97.7 F 09/11/17 06:42 Pulse 78 09/11/17 06:42 Resp 18 09/11/17 06:42 BP 165/66 09/11/17 06:42 Pulse Ox 98 09/11/17 06:42 Weight: 53 kg NPO (# of Hours): > 8 hrs - HEENT Pupil (Motor): Pupils equal, EOMI Mallampati: II Teeth: Missing, Poor dentition Denture Type: Upper: Complete Oral Opening: Greater than 3 - ASE CERTIFIED TECHNICIAN LOC: Oriented - Cardiac Rhythm: Regular Murmur: None - Pulmonary Breath Sounds: bilateral Clear Respiratory Effort: Symmetrical Anesthesia Assess/Plan ASA Score: 3 Modified [place] Scale for Level of Consciousness: Cooperative, oriented, and tranquil Anesthetic Plan: General, Precautions (stress-dose steroids) Monitoring Plan: Standard Monitors, A-Line Recovery Plan: PACU
[2017-09-11] MEDS ORDERED: Heparin 1,000 UNITS/500 mL 1,000 ML ONE (07:16)
[2017-09-11] MEDS ORDERED: Hydrocortisone Sodium Succ 100 MG/2 ML VIAL ONE (07:33)
--- NOTE | 2017-09-11 07:40 | History & Physical Report ---
Date of Encounter: 09/11/17 Time of Encounter: 07:30 24 Hour HP Update - Instructions Instructions: If the History and Physical is less than 30 days old and was completed prior to A.M. admission and or procedure and has NOT been updated on calendar day of procedure please complete this update prior to performing procedure. - Update Patient reports changes in Medical Condition: No Changes in examination, assessment, or condition: No Changes in Medication: No Preop tests/diagnostics Reviewed: Yes Surgery Remains Indicated: Yes Consent for Planned Operative Procedure(s) Verified: Yes - Pre-Operative Checklist Preoperative Checklist Indicated: Yes Prophylactic Antibiotic Ordered: Yes Home Medications Include Beta Robina: No Beta Robina Taken Today (Day of Surgery): No Beta Robina Taken Yesterday (Day Prior to Surgery): No Is VTE Prophylaxis Indicated?: Yes
[2017-09-11] MEDS ORDERED: ceFAZolin 1,000 MG, Sodium Chloride IRRigation 1,000 ML IR ONE (07:45)
[2017-09-11] MEDS ORDERED: EPHEDrine 50 MG/ML VIAL ONE (09:15)
[2017-09-11] MEDS ORDERED: Esmolol 100 MG/10 ML VIAL IVP ONE (09:20)
[2017-09-11] MEDS ORDERED: *HR* Promethazine 25 MG/ML VIAL IVP PRN (09:44)
[2017-09-11] MEDS ORDERED: MORPHINE SUL Oral CONC 10 MG/0.5 ML ORAL.SYG SL PRN (09:44)
[2017-09-11] MEDS ORDERED: Ondansetron 4 MG/2 ML VIAL IVP ONE (09:44)
[2017-09-11] MEDS ORDERED: *HR* Labetalol 20 MG/4 ML SYRINGE IVP PRN (09:44)
[2017-09-11] MEDS ORDERED: *HR* Meperidine 25 MG/ML SYRINGE IVP PRN (09:44)
[2017-09-11] MEDS ORDERED: *HR* OxyCODONE Immed Rel 5 MG TABLET PO PRN (09:44)
[2017-09-11] MEDS ORDERED: Neostigmine Methylsulfate 3 MG/3 ML SYRINGE ONE (10:01)
--- NOTE | 2017-09-11 10:23 | Operative Note ---
Date of procedure: 09/11/17 Pre-op diagnosis: claudication/PAD Post-op diagnosis: same Procedure: right fem-bk popbpg with 6 mm Distaflo PTFE right pop endarterectomy Complications: none Anesthesia: GETA Surgeon: Hernán Arevalo Co-Surgeon: Rhett Montano Was there an music library assistant present: No Estimated blood loss (cc): 100 Specimen: 0 Condition: stable Disposition: PACU Procedure in Detail: History Mrs. Boyer is an 82-year-old white female with severe lower extremity vascular disease. She had undergone previous interventions. She then went on to develop recurrent stenosis and has a markedly depressed ankle brachial index bilaterally but particularly on the right side. Angiogram was performed and the patient was identified as having an occlusion of her right popliteal artery and distal tibial disease. The popliteal lesion was not amenable to endovascular treatment and so she now comes to the operating room for bypass grafting. The patient has multiple ongoing medical problems including rheumatoid arthritis and significant pulmonary hypertension. She is a former tobacco smoker. Procedure After informed consent was obtained the patient was taken the operating room. General endotracheal anesthesia was established. The right lower extremity was sterilely prepped and draped. A timeout protocol was observed. A 2 team surgical approach was used for this patient. This was performed because of the severe pulmonary hypertension in order to minimize anesthetic time and decrease blood loss. The femoral artery was exposed through oblique incision in the right groin and the below the knee popliteal artery was exposed through an incision on the upper aspect of the medial portion of the right calf. The vessel in both locations had areas of calcification though the calcification appeared to be more severe at the popliteal level. A subsartorial tunnel was then created and a 6 mm PTFE graft was selected and passed through the tunnel. 4000 units of heparin were then administered intravenously. After 3 minute delay the low the knee popliteal artery was clamped. It was opened with 11 blade knife and Burnham scissors. Evaluation of the artery revealed a very thick and dense calcific plaque. This was then formally endarterectomized using a septal dissector. A large piece of calcific plaque was removed from the posterior aspect of the popliteal artery. The patient then proceeded with the bypass graft. The distal anastomosis was initiated first with the Distaflo configuration graft. This was performed using 6-0 Prolene. The proximal anastomosis was then performed as well again in an end-to-side fashion using 6-0 Prolene. After an appropriate flushing of the mandy pulsatile flow was then restored into the popliteal system. The patient demonstrated excellent Doppler signals over the dorsalis pedis and peroneal artery at the ankle. The wounds were then irrigated. Hemostasis was achieved. The wounds were then closed using nonabsorbable suture. Dry sterile dressings were then applied to the 2 incisions. The patient was extubated in the operating room. There were no intraoperative complications. The patient was taken from the operating room to the recovery room in stable condition.
[2017-09-11] MEDS ORDERED: Ringers Solution, Lactated 1,000 ML ONE (10:56)
--- NOTE | 2017-09-11 10:59 | Anesthesia Evaluation Post Op ---
Date of Encounter: 09/11/17 Time of Encounter: 10:58 - Vital Signs Vital Signs: Last Vital Signs Temp 98.6 F 09/11/17 10:32 Pulse 107 09/11/17 10:32 Resp 20 09/11/17 10:32 BP 146/74 09/11/17 10:32 Pulse Ox 99 09/11/17 10:32 - Lungs Lungs: Clear Ascult./Percussion - Airway Airway: Non-obstructed - Cardiovascular Regular Rate - Mental Status Mental Status: Alert & Oriented, Answers Appropriately - Pain Pain Scale: 3 - Nausea Vomiting Nausea Vomiting: Not Present - Hydration Hydration: Ice chips, Pardo catheter - Discharge PostOp Status: Transfer Patient to floor
[2017-09-11] MEDS ORDERED: *HR* HYDROcodone/Acet 5/325 mg TABLET PO PRN (11:41)
[2017-09-11] MEDS ORDERED: NON-FORMULARY MEDICATION 1 EACH EACH (Oxygen [Oxygen] 2 L) NS SCH (11:41)
[2017-09-11] MEDS ORDERED: Naloxone 0.4 MG/ML INJ IVP PRN (11:41)
[2017-09-11] MEDS ORDERED: Acetaminophen 325 MG TABLET PO PRN (11:41)
[2017-09-11] MEDS ORDERED: Ondansetron 4 MG/2 ML VIAL IVP PRN (11:41)
--- NOTE | 2017-09-11 12:45 | Anesthesia Procedures ---
Date of Encounter: 09/11/17 Time of Encounter: 08:00 Procedures: Anesthesia - Arterial Line Time out performed: Yes Size (Gauge): 20 Length (inches): 1 3/4 Technique Used: sterile prep Post-Procedure: line taped into place, dry sterile dressing placed Patient tolerated procedure: no complications Complications: none Site: Radial L Vitals: see OR record Comments: placed after induction
[2017-09-11] MEDS: CeFAZolin Premix DUPLEX 2,000 MG/50 ML BAG IVPB SCH ×2 (15:27→23:19)
--- NOTE | 2017-09-11 21:14 | Operative Note ---
Date of procedure: 09/11/17 Pre-op diagnosis: Peripheral Vascular Disease with ulceration Post-op diagnosis: same Procedure: 1. Right common femoral to below knee popliteal artery bypass with 6mm PTFE Distaflo mini-cuff graft 2. Right popliteal artery endarterectomy. Complications: None Anesthesia: COURTNEYA Surgeon: Rhett Montano Co-Surgeon: Hernán Arevalo Was there an specimen preparation assistant present: No Estimated blood loss (cc): 100 Specimen: None Condition: stable Disposition: PACU Procedure in Detail: Indications: The patient is an 82 year old female with a history of peripheral vascular disease with ulceration and a history of gangrene. She aso has a history of pulmonary hypertension, rheumatoid arthritis and COPD. She was found to have severe peripheral vascular disease. Revascularization was recommended to decrease her symptoms and reduce her risk of limb loss. Procedure: The patient was identified in the preoperative area. The risks, benefits, and alternatives of the procedure were discussed. All questions were answered. The patient was taken to the operating room and placed in supine position on the operating room table. After the induction of general endotracheal anesthesia, she was cleaned and draped in normal sterile fashion. A two surgeon appproach was utilized to reduce her risk of postoperative complications due to her comorbid conditions, to decrease her operative time and for intraoperative decision making. An oblique incision was made over the right groin sharply. Hemostasis was obtained with electrocautery. Through a process of blunt, sharp, and electrocautery dissection, the left femoral vessels were dissected circumferentially and surrounded with vessel loops. An incision was made on the right medial calf sharply. Hemostasis was obtained with electrocautery. Through a process of blunt, sharp, and electrocautery dissection, the left above -knee popliteal artery was dissected proximally and distally and surrounded with vessel loops. A graft was tunneled between the popliteal and femoral incisions. The patient received 4000 units of heparin intravenously. After waiting adequate time for the heparin to circulate, the popliteal vessels were occluded and a longitudinal arteriotomy was made in the popliteal artery. The arteriotomy was extended with Burnham scissors. The vessel was noted to be calcified with partially occlusive plaque. Using a dental freer a below knee popliteal endarterctomy was performed. The endpoints were inspected and no elevated flaps were noted. The distal end of the bypass graft was then sutured in place with a running 6-0 Prolene, but not tied. Heparinized saline was infused into the lumen. Tension was then applied to the femoral vessel loops. An arteriotomy was made in the common femoral artery and the graft was cut to fit the defect. The graft was anastamosed with a running 6-0 Prolene. The vessels were flushed through the graft and heparin was infused into the lumen. The graft was clamped with an atraumatic clamp. Thrombin and gelfoam were used at the proximal anastamosis. The distal arterial anastomosis was completed and prior to completing the closure, the popliteal vessels were flushed and reoccluded. Heparinized saline was infused into the lumen. The anastamosis was tied and then flow was restored. Polyphasic signals were noted distal to the distal anastomosis as well as at the posterior tibial artery. Wounds were irrigated with antibiotic-containing saline. Fibrillar was used to aid in hemostasis. Meticulous hemostasis was obtained throughout the wound with electrocautery. Wounds were reapproximated with layers of 2-0 and 3-0 Vicryl. Skin was reapproximated with 4-0 Vicryl. Sterile dressing was applied. The patient was extubated and taken to recovery room in stable condition.
[2017-09-11] MEDS: Budesonide/Formoterol 160/4.5 MDI IH SCH (22:01)
[2017-09-12 06:19] LABS: Basophils % 0.3 %; Eosinophils # 0.1 K/mcL (0.0-0.6); Eosinophils % 2.1 %; Hematocrit 25.1 % (35.3-44.9); Hemoglobin 7.7 g/dL (11.5-15.4); Immature Granulocytes % 0.6 % (0-4); Lymphocytes # 1.2 K/mcL (0.6-4.6); Lymphocytes % 18.3 %; Mean Corpuscular HGB Conc 30.7 g/dL (31.6-35.5); Mean Corpuscular Hemoglobin 27.2 pg (28.0-33.3); Mean Corpuscular Volume 88.7 fL (83.0-100.0); Mean Platelet Volume 9.1 fL (9.4-12.4); Monocytes # 0.5 K/mcL (0.0-1.3); Monocytes % 7.2 %; Neutrophils # 4.8 K/mcL (1.6-8.9); Platelet Count 239 K/mcL (140-400); Red Blood Count 2.83 M/mcL (3.82-4.97); Red Cell Distribution Width 14.4 % (11.5-14.5); Segmented Neutrophils % 71.5 %
[2017-09-12 06:31] LABS: BUN/Creatinine Ratio 19 (6-26); Blood Urea Nitrogen 15 mg/dL (8-23); Calcium 8.3 mg/dL (8.6-10.3); Carbon Dioxide 30 mEq/L (23-29); Chloride 104 mEq/L (98-107); Glucose 86 mg/dL (70-105); Osmolality,Calculated 286 (280-300); Potassium 4.1 mEq/L (3.5-5.1); Sodium 138 mEq/L (136-145); eGFR For African Americans > 60 (> 60); eGFR For Non-African Americans > 60 (> 60)
[2017-09-12] MEDS: CeFAZolin Premix DUPLEX 2,000 MG/50 ML BAG IVPB SCH (08:19)
[2017-09-12] MEDS ORDERED: Aspirin Enteric Coated 81 MG Tablet PO SCH (09:00)
[2017-09-12] MEDS ORDERED: Cholecalciferol (D-3) 1,000 UNIT TABLET PO SCH (09:00)
[2017-09-12] MEDS ORDERED: Multivit/Ca/Min/Fe/FA 1 TAB TABLET PO SCH (09:00)
[2017-09-12] MEDS ORDERED: predniSONE 10 MG TABLET PO SCH (09:00)
[2017-09-12] MEDS ORDERED: FLUoxetine HCl 10 MG CAPSULE PO SCH (09:00)
[2017-09-12] MEDS: Budesonide/Formoterol 160/4.5 MDI IH SCH (09:31)
[2017-09-12] MEDS ORDERED: Tiotropium 18 MCG inhalation IH SCH (10:00)
--- NOTE | 2017-09-12 12:47 | Discharge Summary ---
Orders not resulted at time of discharge: Pending orders 09/10/17 Red Blood Cells [BBK] Routine Date of Encounter: 09/12/17 Time of Encounter: 12:45 - Discharge Diagnosis (1) Pulmonary hypertension Priority: Secondary Status: Chronic Comments: Patient's pulmonary hypertension is controlled medically. She had no difficulties weaning from anesthesia and extubation in the operating room following the operation. (2) COPD (chronic obstructive pulmonary disease) Priority: Secondary Status: Chronic Comments: Chronic COPD under medical management. Qualifiers: COPD type: emphysema Emphysema type: unspecified Qualified Code(s): J43.9 - Emphysema, unspecified (3) PAD (peripheral artery disease) Priority: Primary Status: Chronic Comments: Significant right lower extremity vascular occlusive disease. Patient underwent a right femoral-popliteal bypass graft for a right popliteal artery occlusion. She also required a right popliteal artery endarterectomy. The patient will be discharged on Plavix. - Hospital Course Hospital course: Ms. Boyer is a 82 year old female With significant lower extremity peripheral arterial disease. The patient underwent a right femoral to below-knee popliteal artery bypass graft with 6 mm PTFE Distaflo. Patient had a right popliteal artery endarterectomy as well. Postoperatively the patient developed multiphasic Doppler signals at all locations at the right ankle and foot. The right foot was warm and pink and well perfused. The patient had no periprocedural complications. The patient was felt fit for discharge on the afternoon of postoperative day #1. Instructions were given to the patient prior to discharge. - Time Spent with Patient Total time spent providing and/or coordinating discharge services: - Discharge Medications Prescriptions: HYDROcodone/Acet 5/325 mg [[place] 5-325 mg] 1 tab PO Q6HR PRN 10 Days #14 tablet PRN Reason: Moderate Pain Clopidogrel Bisulfate [Plavix] 75 mg PO DAILY #30 tablet Home Medications: Cholecalciferol (Vitamin D3) [Vitamin D3] 1,000 unit PO BID 09/18/15 [History] FLUoxetine HCl [Prozac] 10 mg PO QAM 08/04/16 [History] Budesonide/Formoterol 160/4.5 [Symbicort 160/4.5] 2 puff IH BIDR 08/11/16 [ History] Docusate [Colace] 100 mg PO BID 10/30/16 [History] Multivitamin [One Daily Essential] 1 each PO DAILY 10/30/16 [History] Oxygen 2 l NS AD 10/30/16 [History] Naproxen [Naprosyn] 500 mg PO Q12H PRN 04/11/17 [History] Tiotropium [place] [Spiriva Respimat] 4 gm IH DAILY 04/11/17 [History] predniSONE [PredniSONE] 10 mg PO DAILY 04/11/17 [History] Aspirin [Lo-Dose Aspirin EC] 81 mg PO DAILY 08/31/17 [History] Albuterol Sulfate [Albuterol Inhaler] 2 puff IH Q4HR PRN 09/11/17 [History] Calcium Carbonate [Calcium] 500 mg PO DAILY 09/11/17 [History] Clopidogrel Bisulfate [Plavix] 75 mg PO DAILY #30 tablet 09/12/17 [Rx] HYDROcodone/Acet 5/325 mg [[place] 5-325 mg] 1 tab PO Q6HR PRN 10 Days #14 tablet 09/12/17 [Rx] Allergies/Adverse Reactions: 3 Allergy/AdvReac Type Severity Reaction Status Date / Time No Known Allergies Allergy Verified 09/11/17 06:35 Date of admission: 09/11/17 11:14 Primary care physician: Ursula Lott Consults: None Procedure(s) Performed: Right femoral to [id number] popliteal artery bypass graft with 6 mm PTFE Distaflo Right below-knee popliteal artery endarterectomy Discharging clinician: Hernán Arevalo Anticipated date of discharge: 09/12/17 Exam Vital Signs, Last 4 Hours Temp Pulse Resp BP Pulse Ox 09/12/17 12:00 97.7 F 92 22 152/70 100 09/12/17 11:00 94 09/12/17 10:00 94 20 129/63 100 General: Present: Conversant, No Apparent Distress HEENT: Present: Atraumatic Neck: Absent: JVD Cardiac: Present: Reg Rate and Rhythm, No Murmur Lungs: Present: Decreased breath sounds Neuro: Present: Alert and responsive, No focal deficits noted, Cranial nerves grossly intact Abdomen: Present: Soft, Non-tender Vascular: Present: Color/Temperature (Right foot is warm and pink. Patient has Doppler signals 3 at the right ankle.), Surgical incisions (Dressings are intact) Skin: Present: No rashes noted on visualized skin - Patient Status Disposition: Home, Self-Care Condition: Good Functional capacity at discharge: independent ambulation Overall status at discharge: patient is progressing back to baseline - Discharge Instructions Follow Up With: Haydee Blue DO [Primary Care Provider] - 09/17/17 9:30 am Hernán Arevalo MD [Partnered Physician] - (Follow-up with Dr. Arevalo in 2 weeks) Additional Instructions: Keep surgical incisions dry for a total of 5 days following surgery. Removed surgical dressings on Sunday. Removed Steri-Strips from right calf incision in 1 week. Use incentive spirometer 10 times an hour while awake for the next 2 weeks at home. Encourage ambulation on a regular basis. Elevate right lower extremity while seated to reduce postoperative swelling. Continue usual home medications. Begin Plavix at 75 mg every morning. - Diet and Activity Activity: increase activity as tolerated Diet: advance to your usual diet, low fat, low cholesterol - VTE Documentation of Mechanical Device: Intermittent pneumatic compression device
[2017-09-12 16:34] VITALS: BP 147/62
== END 2017-09-12 19:10 | disposition home or self-care (01) | DRG 254 ==
LOC: SAMDAY 06:12 → ICNU 11:14
PROVIDERS: ADMIT Surgery Vascular Surgery; ATTEND Surgery Vascular Surgery

== ENCOUNTER 2017-09-21 10:45 | Inpatient (IN) ==
[2017-09-21] MEDS ORDERED: Ipratropium/Albuterol Neb 3 ML IH ONE (10:58)
--- NOTE | 2017-09-21 11:12 | Emergency Department Note ---
Disposition Clinical Impression: Dyspnea Qualifiers: Dyspnea type: unspecified Qualified Code(s): R06.00 - Dyspnea, unspecified Disposition: Still a Patient Condition: Fair Time of Disposition: 11:12 General Adult HPI - General Chief complaint: ED Shortness of Breath/Dyspnea Stated complaint: COLT, RLE swelling recent surgery Time Seen by Provider: 09/21/17 10:46 Source: patient, family Limitations: no limitations - History of Present Illness Pain Scale: 0 - Related Data Home Medications Medication Instructions Recorded Confirmed Cholecalciferol (Vitamin D3) 1,000 unit PO BID 09/18/15 09/11/17 [Vitamin D3] FLUoxetine HCl [Prozac] 10 mg PO QAM 08/04/16 09/11/17 Budesonide/Formoterol 160/4.5 2 puff IH BIDR 08/11/16 09/11/17 [Symbicort 160/4.5] Docusate [Colace] 100 mg PO BID 10/30/16 09/11/17 Multivitamin [One Daily Essential] 1 each PO DAILY 10/30/16 09/11/17 Oxygen 2 l NS AD 10/30/16 09/11/17 Naproxen [Naprosyn] 500 mg PO Q12H PRN 04/11/17 09/11/17 Tiotropium [place] [Spiriva 4 gm IH DAILY 04/11/17 09/11/17 Respimat] predniSONE [PredniSONE] 10 mg PO DAILY 04/11/17 09/11/17 Aspirin [Lo-Dose Aspirin EC] 81 mg PO DAILY 08/31/17 09/11/17 Albuterol Sulfate [Albuterol 2 puff IH Q4HR PRN 09/11/17 09/11/17 Inhaler] Calcium Carbonate [Calcium] 500 mg PO DAILY 09/11/17 09/11/17 Previous Rx's Medication Instructions Recorded Clopidogrel Bisulfate [Plavix] 75 mg PO DAILY #30 tablet 09/12/17 HYDROcodone/Acet 5/325 mg [[place] 1 tab PO Q6HR PRN 10 Days #14 09/12/17 5-325 mg] tablet Allergies Allergy/AdvReac Type Severity Reaction Status Date / Time No Known Allergies Allergy Verified 09/11/17 06:35 Past Medical History - Past Medical History Medical history: Reports: arthritis, COPD, hyperlipidemia, peripheral artery disease Surgical history: Reports: appendectomy, other, vascular surgery Psychiatric history: Reports: no psych history DIRECTOR OF EVENT SALES history: Reports: no DIRECTOR OF EVENT SALES history - Social History Smoking Status: Former smoker Smokeless Tobacco Status: No Alcohol use: Reports: none Drug use: Reports: none Physical Exam - General Limitations: no limitations General appearance: alert Course - Reevaluation(s) Reevaluation #1: Attestation note: I examined this patient and my medical decision-making was reviewed with the CENTRIFUGAL SEPARATOR/PA/Advanced Practice Nurse/Resident Physician. I agree with the documented findings, disposition and treatment plan as described except to the extent set forth below. ED attending: Patient's emergency medicine resident Dr. Aliya SALAZAR. Please see copy of this note for H&P evaluation and management and ED disposition. We both had independent [id number] time in contact with this patient. Briefly: 82-year-old female history of bradycardia COPD on home oxygen approximately 10 days ago had an aortobifem bypass done by the vascular surgeon Dr. Arevalo. Patient had several bouts of acute urinary retention which partnered several visits to the urologist for Pardo catheter insertion removal. Patient is been agreeable to urinate since last night. Does have a history about a year ago Thing. Also she has a greatly swollen right lower extremity and shortness of breath. Patient certainly at risk for DVT and/or PE. Patient will be getting screening labs EKG initially showed hyperacute T waves in the lateral precordial leads. Patient getting IV calcium for cardiac membrane stabilization. Patient getting some oxygen and IV fluids. Patient getting an x -ray and a Doppler study of the leg. Provided 45 minutes critical care service for this patient. Disposition pending Time: 11:09 Vital Signs Temperature 98.0 F 09/21/17 10:51 Pulse Rate 44 09/21/17 10:51 Respiratory Rate 16 09/21/17 10:51 Blood Pressure 146/53 09/21/17 10:51 O2 Sat by Pulse Oximetry 95 09/21/17 10:51 Temperature 98.0 F 09/21/17 10:51 Pulse Rate 44 09/21/17 10:51 Respiratory Rate 16 09/21/17 10:51 Blood Pressure 146/53 09/21/17 10:51 O2 Sat by Pulse Oximetry 95 09/21/17 10:51 Oxygen Delivery Oxygen Delivery Nasal Cannula
[2017-09-21 11:34] LABS: Basophils % 0.2 %; Eosinophils # 0.1 K/mcL (0.0-0.6); Eosinophils % 1.2 %; Hematocrit 27.8 % (35.3-44.9); Hemoglobin 8.5 g/dL (11.5-15.4); Immature Granulocytes % 0.6 % (0-4); Lymphocytes # 0.9 K/mcL (0.6-4.6); Lymphocytes % 8.8 %; Mean Corpuscular HGB Conc 30.6 g/dL (31.6-35.5); Mean Corpuscular Hemoglobin 27.2 pg (28.0-33.3); Mean Corpuscular Volume 88.8 fL (83.0-100.0); Mean Platelet Volume 10.4 fL (9.4-12.4); Monocytes # 0.6 K/mcL (0.0-1.3); Monocytes % 5.2 %; Platelet Count 338 K/mcL (140-400); Red Blood Count 3.13 M/mcL (3.82-4.97); Red Cell Distribution Width 15.7 % (11.5-14.5)
[2017-09-21 11:50] LABS: Calcium 9.5 mg/dL (8.6-10.3); Potassium 5.1 mEq/L (3.5-5.1)
[2017-09-21 11:58] LABS: Troponin I 0.06 ng/mL (< 0.04)
--- NOTE | 2017-09-21 12:06 | Emergency Department Note ---
Disposition Clinical Impression: Hyponatremia Dyspnea Qualifiers: Dyspnea type: unspecified Qualified Code(s): R06.00 - Dyspnea, unspecified DVT (deep venous thrombosis) Qualifiers: DVT location: lower extremity Affected thrombotic vein of extremity: popliteal Chronicity: acute Laterality: right Qualified Code(s): I82.431 - Acute embolism and thrombosis of right popliteal vein Disposition: Admitted As Inpatient Condition: Fair Time of Disposition: 14:19 General Adult HPI - General Chief complaint: ED Shortness of Breath/Dyspnea Stated complaint: COLT, RLE swelling recent surgery Time Seen by Provider: 09/21/17 10:46 Source: patient, family Limitations: no limitations Nursing Notes Reviewed: Yes Vital Signs Reviewed: Yes - History of Present Illness HPI Narrative: 82-year-old female with significant past medical history of COPD on 2 L nasal cannula and peripheral vascular disease presenting to the emergency department with unilateral lower extremity swelling. Patient states approximately 10 days ago she had surgery for peripheral vascular deep disease in the right lower extremity. She had been doing well and last evening she had acute swelling of the right lower extremity. Patient currently on Plavix. Patient denies any chest pain but does disclose increased dyspnea over the past 2-3 days. Patient denies any history of PE or DVT. According to the daughter in the room the patient has otherwise been at baseline. Pain Scale: 0 - Related Data Home Medications Medication Instructions Recorded Confirmed Cholecalciferol (Vitamin D3) 1,000 unit PO BID 09/18/15 09/21/17 [Vitamin D3] FLUoxetine HCl [Prozac] 10 mg PO QAM 08/04/16 09/21/17 Budesonide/Formoterol 160/4.5 2 puff IH BIDR 08/11/16 09/21/17 [Symbicort 160/4.5] Docusate [Colace] 100 mg PO BID 10/30/16 09/21/17 Multivitamin [One Daily Essential] 1 each PO DAILY 10/30/16 09/21/17 Oxygen 2 l NS AD 10/30/16 09/21/17 Naproxen [Naprosyn] 500 mg PO Q12H PRN 04/11/17 09/21/17 Tiotropium [place] [Spiriva 4 gm IH DAILY 04/11/17 09/21/17 Respimat] predniSONE [PredniSONE] 10 mg PO DAILY 04/11/17 09/21/17 Aspirin [Lo-Dose Aspirin EC] 81 mg PO DAILY 08/31/17 09/21/17 Albuterol Sulfate [Albuterol 2 puff IH Q4HR PRN 09/11/17 09/21/17 Inhaler] Calcium Carbonate [Calcium] 500 mg PO DAILY 09/11/17 09/21/17 Previous Rx's Medication Instructions Recorded Clopidogrel Bisulfate [Plavix] 75 mg PO DAILY #30 tablet 09/12/17 HYDROcodone/Acet 5/325 mg [[place] 1 tab PO Q6HR PRN 10 Days #14 09/12/17 5-325 mg] tablet Allergies Allergy/AdvReac Type Severity Reaction Status Date / Time No Known Allergies Allergy Verified 09/11/17 06:35 All systems ED: reviewed and negative except as stated. Respiratory: Reports: cough, dyspnea Musculoskeletal: Reports: other (unilateral leg swelling) Past Medical History - Past Medical History Attestation: Yes The following information was validated with the patient. Medical history: Reports: arthritis, COPD, hyperlipidemia, peripheral artery disease Surgical history: Reports: appendectomy, other, vascular surgery Psychiatric history: Reports: no psych history BUSINESS SERVICES REPRESENTATIVE history: Reports: no BUSINESS SERVICES REPRESENTATIVE history - Social History Smoking Status: Former smoker Smokeless Tobacco Status: No Alcohol use: Reports: none Drug use: Reports: none Physical Exam - General Limitations: no limitations General appearance: alert, in no apparent distress - Head Head exam: atraumatic, normocephalic, normal inspection - Eye Eye exam: Present: normal appearance. Absent: scleral icterus, conjunctival injection - ENT ENT exam: normal exam, mucous membranes moist - Neck Neck exam: Present: normal inspection, full ROM. Absent: tenderness, meningismus - Chest Chest inspection: Present: normal inspection, symmetric chest wall rise. Absent : tenderness, rash - Respiratory Respiratory exam: Present: normal lung sounds bilaterally. Absent: respiratory distress, wheezes - Cardiovascular Cardiovascular exam: Present: normal rhythm, bradycardia, normal heart sounds - Abdominal Exam Abdominal exam: Present: soft, Non-Tender. Absent: distention, guarding, rebound - Extremities Exam Extremities exam: Present: other (Unilateral right lower extremity swelling. No tenderness on palpation. Well healing vertical incision on the medial aspect of the lower extremity) - Neurological Exam Neurological exam: Present: alert, oriented X3 - Psychiatric Psychiatric exam: Present: normal affect, normal mood - Skin Skin exam: Present: warm, intact Course Course Narrative: 82-year-old female presenting to the emergency Department chief complaint of dyspnea and unilateral leg swelling. Patient has known COPD history and also recent surgery. We will obtain basic laboratory analysis including CBC, BMP, troponin and EKG. We will also obtain a Doppler of the right lower extremity. Patient's disposition most likely admission due to her dyspnea but pending results. Patient agrees with this plan. She is alert and oriented 3 in the room. Mildly hypoxic upon presentation but with increased nasal cannula oxygen stable vital signs. Patient also bradycardic. This is baseline for the patient according to her daughter. - Reevaluation(s) Reevaluation #1: Patient's EKG was completed and showed signs concerning for hyperkalemia. Patient was given 1 g of calcium. Patient also hyponatremic on laboratory analysis. 1 L of normal saline given. Right lower extremity Doppler shows new clot in the popliteal vein. At this time we will start the patient on heparin. Patient's troponin also elevated. That. We will start oriented the DVT versus PE we will cover her for ACS as well. We will plan to admit the patient at this time for further evaluation. I spoke with the hospitalist on-call Dr. Brownlee who agrees to accept the patient. Patient is alert and oriented 3 in the room with stable vital signs. She agrees with this plan. Vital Signs Temperature 98.0 F 09/21/17 10:51 Pulse Rate 44 09/21/17 10:51 Respiratory Rate 16 09/21/17 10:51 Blood Pressure 146/53 09/21/17 10:51 O2 Sat by Pulse Oximetry 95 09/21/17 10:51 Temperature 98.0 F 09/21/17 10:51 Pulse Rate 46 09/21/17 13:36 Respiratory Rate 16 09/21/17 13:36 Blood Pressure 96/41 09/21/17 13:36 O2 Sat by Pulse Oximetry 99 09/21/17 13:36 Oxygen Delivery Oxygen Delivery Nasal Cannula Medical Decision Making - Lab Data Result diagrams: 09/21/17 11:13 09/21/17 11:13 Lab Results 09/21/17 09/21/17 09/21/17 Range/Units 11:13 11:13 11:13 WBC 10.7 (4.3-11.1) K/mcL RBC 3.13 L (3.82-4.97) M/mcL Hgb 8.5 L (11.5-15.4) g/dL Hct 27.8 L (35.3-44.9) % MCV 88.8 (83.0-100.0) fL MCH 27.2 L (28.0-33.3) pg MCHC 30.6 L (31.6-35.5) g/dL RDW 15.7 H (11.5-14.5) % Plt Count 338 (140-400) K/mcL MPV 10.4 (9.4-12.4) fL Immature Gran % 0.6 (0-4) % Seg Neutrophils % 84.0 % Lymphocytes % 8.8 % Monocytes % 5.2 % Eosinophils % 1.2 % Basophils % 0.2 % Neutrophils # 9.0 H (1.6-8.9) K/mcL Lymphocytes # 0.9 (0.6-4.6) K/mcL Monocytes # 0.6 (0.0-1.3) K/mcL Eosinophils # 0.1 (0.0-0.6) K/mcL Basophils # 0.0 (0.0-0.2) K/mcL PT 11.6 (9.4-12.1) Seconds INR 1.1 Sodium 127 L (136-145) mEq/L Potassium 5.1 (3.5-5.1) mEq/L Chloride 94 L (98-107) mEq/L Carbon Dioxide 22 L (23-29) mEq/L BUN 58 H (8-23) mg/dL Creatinine 1.44 H (0.60-1.20) mg/dL Est GFR ( Amer) 42 L (> 60) Est GFR (Non-Af Amer) 35 L (> 60) BUN/Creatinine Ratio 40 H (6-26) Glucose 151 H (70-105) mg/dL Calculated Osmolality 283 (280-300) Calcium 9.5 (8.6-10.3) mg/dL Troponin I 0.06 H* (< 0.04) ng/mL Urine Color (Yellow) Urine Clarity (Clear) Urine pH (5.0-8.0) pH Units Ur Specific [place] (1.010-1.025) Urine Protein (Neg-Trace) mg/dL Urine Glucose (UA) (Normal) mg/dL Urine Ketones (Negative) mg/dL Urine Blood (Negative) Urine Nitrite (Negative) Urine Bilirubin (Negative) Urine Urobilinogen (Normal) mg/dL Ur Leukocyte Esterase (Negative) Urine Microscopic RBC (0-3) per hpf Urine Microscopic WBC (0-3) per hpf Ur Squamous Epith Cells (None-Few) per lpf Urine Bacteria (None-Few) per hpf Hyaline Casts (None-Few) per lpf Urine Yeast (None Seen) per hpf Ur Culture Indicated? (NO) 09/21/17 Range/Units 11:35 WBC (4.3-11.1) K/mcL RBC (3.82-4.97) M/mcL Hgb (11.5-15.4) g/dL Hct (35.3-44.9) % MCV (83.0-100.0) fL MCH (28.0-33.3) pg MCHC (31.6-35.5) g/dL RDW (11.5-14.5) % Plt Count (140-400) K/mcL MPV (9.4-12.4) fL Immature Gran % (0-4) % Seg Neutrophils % % Lymphocytes % % Monocytes % % Eosinophils % % Basophils % % Neutrophils # (1.6-8.9) K/mcL Lymphocytes # (0.6-4.6) K/mcL Monocytes # (0.0-1.3) K/mcL Eosinophils # (0.0-0.6) K/mcL Basophils # (0.0-0.2) K/mcL PT (9.4-12.1) Seconds INR Sodium (136-145) mEq/L Potassium (3.5-5.1) mEq/L Chloride (98-107) mEq/L Carbon Dioxide (23-29) mEq/L BUN (8-23) mg/dL Creatinine (0.60-1.20) mg/dL Est GFR ( Amer) (> 60) Est GFR (Non-Af Amer) (> 60) BUN/Creatinine Ratio (6-26) Glucose (70-105) mg/dL Calculated Osmolality (280-300) Calcium (8.6-10.3) mg/dL Troponin I (< 0.04) ng/mL Urine Color Yellow (Yellow) Urine Clarity Cloudy A (Clear) Urine pH 5.0 (5.0-8.0) pH Units Ur Specific [place] 1.027 H (1.010-1.025) Urine Protein 100 H (Neg-Trace) mg/dL Urine Glucose (UA) Normal (Normal) mg/dL Urine Ketones Trace H (Negative) mg/dL Urine Blood Negative (Negative) Urine Nitrite Negative (Negative) Urine Bilirubin Small H (Negative) Urine Urobilinogen Normal (Normal) mg/dL Ur Leukocyte Esterase Small H (Negative) Urine Microscopic RBC 0-3 (0-3) per hpf Urine Microscopic WBC 15-30 H (0-3) per hpf Ur Squamous Epith Cells Many H (None-Few) per lpf Urine Bacteria Few (None-Few) per hpf Hyaline Casts Few (None-Few) per lpf Urine Yeast Moderate H (None Seen) per hpf Ur Culture Indicated? NO. (NO) - EKG Data EKG #1 EKG attestation: Yes I reviewed and interpreted this EKG. EKG results narrative: Sinus rhythm. 48 bpm. Peak T waves noted in V2, V3, V4, V5 and V6. QRS 100, QTC 432. No signs of acute ST segment elevation or ischemia. Compared to previous EKG completed on August 24 2017 new peaked T waves.
[2017-09-21 12:25] LABS: Bilirubin,Urine Small (Negative); Blood,Urine Negative (Negative); Clarity,Urine Cloudy (Clear); Color,Urine Yellow (Yellow); Glucose,Urine (UA) Normal (Normal); Ketones,Urine Trace mg/dL (Negative); Leukocyte Esterase,Urine Small (Negative); Nitrite,Urine Negative (Negative); Protein,Urine 100 mg/dL (Neg-Trace); Specific Gravity,Urine 1.027 (1.010-1.025); Urobilinogen,Urine Normal (Normal)
[2017-09-21 12:27] LABS: Bacteria,Urine Few per hpf (None-Few); Hyaline Casts,Urine Few per lpf (None-Few); RBC,Urine 0-3 per hpf (0-3); Squamous Epithelial Cell,Urine Many per lpf (None-Few); WBC,Urine 15-30 per hpf (0-3)
[2017-09-21 12:37] LABS: Yeast,Urine Moderate per hpf (None Seen)
[2017-09-21] MEDS ORDERED: 0.9 % Sodium Chloride 1,000 ML IVC ONE (12:37)
[2017-09-21] MEDS ORDERED: *HR* Heparin 5,000 UNIT/ML VIAL IVP ONE (13:13)
[2017-09-21] MEDS ORDERED: *HR* Heparin 5,000 UNIT/ML VIAL IVP PRN (13:13)
[2017-09-21 14:01] LABS: INR 1.1; Prothrombin Time 11.6 Seconds (9.4-12.1)
[2017-09-21 14:04] LABS: Activated Partial Thrombo Time 24.2 Seconds (26.0-36.0)
[2017-09-21] MEDS: Heparin 25,000 UNIT/500 ML D5W 25,000 UNIT/500 ML BAG IVC SCH (14:55)
[2017-09-21] MEDS ORDERED: *HR* HYDROcodone/Acet 5/325 mg TABLET PO PRN (15:35)
[2017-09-21] MEDS ORDERED: Naloxone 0.4 MG/ML INJ IVP PRN (15:43)
[2017-09-21] MEDS ORDERED: 0.9 % Sodium Chloride 1,000 ML IVC SCH (15:45)
--- NOTE | 2017-09-21 15:50 | Internal Med History&Physical ---
<Freddy Arredondo - Last Filed: 09/21/17 16:32> Date of Encounter: 09/21/17 Time of Encounter: 15:48 Assessment and Plan (1) Pulmonary embolism Current visit: Yes Status: Acute The patient presents today with difficulty breathing and right lower extremity swelling. At baseline she wears 2 L oxygen at home, however, she has had to increase her O2 to 3 L. She reports she was continued have increasing shortness of breath so she sought care today at [facility] ED. She has recently undergone a right femoropopliteal bypass and right popliteal endarterectomy in August 2017. She has been on Plavix since discharge. Today She was noted to be positive for a DVT in the right lower extremity. Additionally, a VQ scan was ordered and found to have an intermediate probability for pulmonary embolism. -Continue heparin drip and titrate per protocol, PTT per protocol -Continuous telemetry, continuous O2 monitoring -Hydrocodone 5/325 for pain Qualifiers: Qualified Code(s): I26.99 - Other pulmonary embolism without acute cor pulmonale (2) Acute kidney injury Current visit: Yes Status: Acute Patient presents today with an acute kidney injury. No prior history of renal disease. Baseline GFR greater than 60, baseline creatinine 0.8 Patient recently had a surgery for right femoropopliteal bypass and right popliteal endarterectomy A. tach related to dye used during procedure -Obtain retroperitoneal ultrasound -Avoid nephrotoxins -IV fluid 0.9% normal saline at 75 mL per hour -Recheck serum creatinine in the morning (3) Dyspnea Current visit: Yes Status: Acute In the setting of pulmonary embolism. See further planning above Qualifiers: Dyspnea type: unspecified Qualified Code(s): R06.00 - Dyspnea, unspecified (4) COPD (chronic obstructive pulmonary disease) Current visit: Yes Status: Chronic History of COPD. Currently stable, continue bronchodilators and steroid inhalers Qualifiers: COPD type: emphysema Emphysema type: unspecified Qualified Code(s): J43.9 - Emphysema, unspecified (5) PAD (peripheral artery disease) Current visit: Yes Status: Chronic History of PAD. Recently underwent right femoropopliteal bypass in August as well as right popliteal endarterectomy. The patient is left posterior tibial and superficial femoral occlusive disease that will also likely need repair in the future. She presents today with increased RLE swelling, tenderness. Found to have a DVT in RLE while in the ED. Denies missing any doses of Plavix -Continue Heparin gtt -Continue Plavix See further planning above (6) Hyponatremia Current visit: Yes Status: Acute Hyponatremia likely secondary to acute kidney injury, no history of chronic hyponatremia The patient remains asymptomatic Received IV fluid bolus in the ED; continue IV fluid 0.9% normal saline at 50 mL per hour Recheck serum sodium in the a.m. (7) DVT (deep venous thrombosis) Current visit: Yes Status: Acute Qualifiers: DVT location: lower extremity Affected thrombotic vein of extremity: popliteal Chronicity: acute Laterality: right Qualified Code(s): I82.431 - Acute embolism and thrombosis of right popliteal vein Internal Medicine - H&P: HPI Chief complaint: dyspnea, RLE swelling and pain Admitted From: Home Plans for Post Hospital Care: Home History of present illness: Ms. Boyer is a 82 year old female with a PMH of arthritis, COPD, HLD and PAD. He presents to [facility] today with right lower extremity swelling and tenderness as well as dyspnea. The patient states that approximately 10 days to 2 weeks ago she had surgery for PVD. It appears she has had a right femoropopliteal bypass as well as right popliteal endarterectomy. She reports that with the exception of mild manageable dull pain and swelling to her right lower extremity her postoperative course has been unremarkable. However, the patient presents today with shortness of breath for the last 2 or 3 days has been getting progressively worse. She denies any chest pain, abdominal pain, fever, chills, cough. She states that she normally wears 2 L of oxygen at home and baseline however, has had increase her to use to 3 L nasal cannula and is continuing to experience dyspnea. A Doppler of the right lower extremity was completed in the ED the patient was found to be positive for DVT in the right lower extremity. Additionally, a VQ scan was completed and found to have an intermediate probability for pulmonary embolus. Past Med Surg Social Fam HX - Past Medical History Medical history: arthritis, COPD, hyperlipidemia, peripheral artery disease Psychiatric history: no psych history - Past Surgical History Surgical History: appendectomy, other, vascular surgery - Social History Smoking Status: Former smoker Smokeless Tobacco Status: No Alcohol use: none Drug use: none - Family History Daughter Living Status: Still Living Hx Family Cardiac Disorders: No Hx Family Respiratory Disorders: No Hx Family Cancer: No Hx Family GI Disorders: No Hx Family Endocrine Disorder: No Hx Family Neuromuscular Disorders: No Hx Family Neurologic Disorders: No Hx Family HEENT Disorders: No Hx Family Autoimmune Disorders: Yes (Rhuemitoid Arthritis) Internal Medicine - H&P: Meds Cholecalciferol (Vitamin D3) [Vitamin D3] 1,000 unit PO BID 09/18/15 [History] FLUoxetine HCl [Prozac] 10 mg PO QAM 08/04/16 [History] Budesonide/Formoterol 160/4.5 [Symbicort 160/4.5] 2 puff IH BIDR 08/11/16 [ History] Docusate [Colace] 100 mg PO BID 10/30/16 [History] Multivitamin [One Daily Essential] 1 each PO DAILY 10/30/16 [History] Oxygen 2 l NS AD 10/30/16 [History] Naproxen [Naprosyn] 500 mg PO Q12H PRN 04/11/17 [History] Tiotropium [place] [Spiriva Respimat] 4 gm IH DAILY 04/11/17 [History] predniSONE [PredniSONE] 10 mg PO DAILY 04/11/17 [History] Aspirin [Lo-Dose Aspirin EC] 81 mg PO DAILY 08/31/17 [History] Albuterol Sulfate [Albuterol Inhaler] 2 puff IH Q4HR PRN 09/11/17 [History] Calcium Carbonate [Calcium] 500 mg PO DAILY 09/11/17 [History] Clopidogrel Bisulfate [Plavix] 75 mg PO DAILY #30 tablet 09/12/17 [Rx] HYDROcodone/Acet 5/325 mg [[place] 5-325 mg] 1 tab PO Q6HR PRN 10 Days #14 tablet 09/12/17 [Rx] 3 Allergy/AdvReac Type Severity Reaction Status Date / Time No Known Allergies Allergy Verified 09/11/17 06:35 All Systems PM: A 10-system review of systems was performed and is negative for pertinent findings except as documented above in the HPI. Review of systems: REVIEW OF SYSTEMS GENERAL: Negative for any nausea, vomiting, fevers, chills, or weight loss. Positive for fatigue NEUROLOGIC: Negative for any blurry vision, blind spots, double vision, facial asymmetry, dysphagia, dysarthria, hemiparesis, hemisensory deficits, vertigo, ataxia. HEENT: Negative for any head trauma, neck trauma, neck stiffness, photophobia, phonophobia, sinusitis, rhinitis. CARDIAC: Negative for any chest pain, paroxysmal nocturnal dyspnea, peripheral edema. PULMONARY: Negative for any wheezing, COPD, or TB exposure. Positive for shortness of breath at rest worsens with exertion GASTROINTESTINAL: Negative for any abdominal pain, nausea, vomiting, bright red blood per rectum, melena. GENITOURINARY: Negative for any dysuria, hematuria, incontinence. Musculoskeletal: Right lower extremity swelling and pain. Surgical incision along medial aspect of distal RLE. Incision well approximated, no erythema or drainage. Bruising noted INTEGUMENTARY: Negative for any rashes, insect bites. RHEUMATOLOGIC: Negative for any joint pains, photosensitive rashes, history of vasculitis or kidney problems. HEMATOLOGIC: Negative for any infections or bleeding. - Constitutional Vitals: Temp Pulse Resp BP Pulse Ox 98.0 F 46 16 120/42 99 09/21/17 10:51 09/21/17 13:36 09/21/17 15:16 09/21/17 15:16 09/21/17 13:36 General appearance: Present: cooperative, mild distress, A&O X 3, answers questions appropriately Exam: PHYSICAL EXAMINATION: GENERAL: The patient is a ill appearing female with mild distress. She is alert and oriented x3. HEENT: Head is normocephalic and atraumatic. Extraocular muscles are intact. Pupils are equal, round, and reactive to light and accommodation. NECK: Supple. No carotid bruits. No lymphadenopathy or thyromegaly. LUNGS: Clear/Diminished to auscultation. Patient appears mildly short of breath , accessory muscle usage and tachypneic. HEART: Regular rate and rhythm without murmur. ABDOMEN: Soft, nontender, and nondistended. Positive bowel sounds. No hepatosplenomegaly was noted. EXTREMITIES: Without any cyanosis, clubbing, rash, or edema. Right lower extremity is swollen and bruised. There is an incision along the medial aspect of distal right lower extremity secondary to femoropopliteal bypass surgery. The incision is clean, dry, intact and well approximated without erythema or drainage. NEUROLOGIC: Cranial nerves II through XII are grossly intact. PSYCHIATRIC: Appropriate affect, but denies suicidal or homicidal ideations. SKIN: No ulceration rashes or new lesions. Internal Med - H&P Results - Labs CBC & Chem 7: 09/21/17 11:13 09/21/17 11:13 - EKG Data -: EKG Interpreted by Myself EKG shows normal: sinus rhythm Rate: bradycardia - EKG Data Prior EKG available for review: yes When compared to previous EKG: there is no significant change - Impressions Impressions Chest X-Ray 09/21/17 10:57 IMPRESSION: Findings suggesting COPD with no acute pneumonia. Question new trace right pleural effusion. D/ / 09/21/2017 11:17:29 Anthony Yanez MD / gilma Interpreting Provider: Anthony Yanez MD Pulmonary Perfusion Imaging 09/21/17 13:13 IMPRESSION: 1. Intermediate probability for pulmonary embolism. 2. Abnormal chest radiograph with COPD and a right pleural effusion limit evaluation. D/ / Jona Rai MD / Jona Rai MD Interpreting Provider: Jona Rai MD <Sherice Brownlee - Last Filed: 09/21/17 16:41> Date of Encounter: 09/21/17 Time of Encounter: 16:15 Internal Medicine - H&P: HPI History of present illness: Ms. Boyer is a 82 year old female All Systems PM: A 10-system review of systems was performed and is negative for pertinent findings except as documented above in the HPI. - Constitutional Vitals: Temp Pulse Resp BP Pulse Ox 98.0 F 46 16 120/42 99 09/21/17 10:51 09/21/17 13:36 09/21/17 15:16 09/21/17 15:16 09/21/17 13:36 Internal Med - H&P Results - Labs CBC & Chem 7: 09/21/17 11:13 09/21/17 11:13 - Attending Attestation I examined this patient and my medical decision-making was reviewed with the Nurse Practitioner, Freddy Arredondo. I agree with the documented findings, disposition and treatment plan as described with any changes as documented below. 82-year-old female patient who recently underwent right femoropopliteal bypass and right popliteal endarterectomy was seen in the ER today with complaints of increased shortness of breath and right lower extremities swelling. She denies any chest pain or palpitations. She had developed adverse reaction to during her procedure and development atrial tachycardia but her symptoms resolved and she was discharged home on Plavix. She has never had prior DVTs. She denies any dizziness or lightheadedness at this time. She is on home oxygen at 2 L/m. But has had to increase it due to shortness of breath. On examination, patient is awake and alert. Thin built. Diminished breath sounds bilaterally. Heart sounds are normal. Patient is bradycardic. Venous Doppler of the right lower extremity showed DVT involving the right popliteal vein. Also superficial thrombosis involving the right greater saphenous vein. Labs show hemoglobin of 8.5, sodium 127 potassium 5.1, chloride 94, BUN 58, creatinine 1.44. VQ scan shows intermediate probability for PE Acute on chronic respiratory failure: Most likely due to pulmonary embolism. We will treat with IV heparin. Monitor vital signs. Monitor blood counts. High risk for complications. Continue O2 supplementation. Venous thromboembolism: Patient has a right lower recently DVT. VQ scan shows intermediate probability for PE. On IV heparin. Will need anticoagulation for 3-6 months. Provoked due to recent procedure in this extremity. COPD and chronic respiratory failure. Continue duo nebs. As needed. O2 supplementation. Incentive spirometry. Chronic anemia: Monitor blood counts. Will check iron, folic acid and vitamin B12 levels. High risk for worsening of anemia due to IV heparin use. Acute kidney injury: Could be related to contrast nephropathy. Will treat with IV fluids and follow renal function closely. Avoid nephrotoxic agents. Hyponatremia: Due to hypovolemia. Will treat with IV fluids. Elevated troponin: Could be due to hypoxia/underlying PE. Will trend troponins. Peripheral vascular disease with recent right femoropopliteal bypass: Continue Plavix.
--- NOTE | 2017-09-21 19:15 | Electrocardiograph Report ---
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
[2017-09-21] MEDS: Cholecalciferol (D-3) 1,000 UNIT TABLET PO SCH (21:36)
[2017-09-21] MEDS ORDERED: Budesonide/Formoterol 160/4.5 MDI IH SCH (22:00)
[2017-09-21] MEDS ORDERED: methylPREDNISolone 125 MG/2 ML VIAL IVP ONE (22:09)
[2017-09-21] MEDS ORDERED: *HR* Atropine Sulfate 1 MG/10 ML SYRINGE ONE (22:17)
[2017-09-21] MEDS ORDERED: *HR* Atropine Sulfate 1 MG/10 ML SYRINGE IVP ONE (22:27)
[2017-09-21] MEDS: 0.9 % Sodium Chloride 1,000 ML IVC SCH (22:36)
[2017-09-21] MEDS: *HR* Heparin 5,000 UNIT/ML VIAL IVP PRN (22:42)
[2017-09-22] MEDS: Ipratropium/Albuterol Neb 3 ML IH SCH ×6 (00:48→20:57)
[2017-09-22] MEDS: MethylPREDNISolone 40 MG/ML VIAL IVP SCH ×2 (04:31→09:19)
[2017-09-22] MEDS ORDERED: Furosemide 20 MG/2 ML VIAL IVP ONE ×2 (04:49→04:55)
[2017-09-22 04:59] LABS: Basophils % 0.1 %; Hematocrit 27.7 % (35.3-44.9); Hemoglobin 8.4 g/dL (11.5-15.4); Immature Granulocytes % 0.6 % (0-4); Lymphocytes # 0.4 K/mcL (0.6-4.6); Lymphocytes % 2.1 %; Mean Corpuscular HGB Conc 30.3 g/dL (31.6-35.5); Mean Corpuscular Hemoglobin 27.3 pg (28.0-33.3); Mean Corpuscular Volume 89.9 fL (83.0-100.0); Mean Platelet Volume 10.5 fL (9.4-12.4); Monocytes # 0.5 K/mcL (0.0-1.3); Monocytes % 2.6 %; Neutrophils # 18.2 K/mcL (1.6-8.9); Nucleated Red Blood Cells 0.1 /100 WBC (0); Platelet Count 393 K/mcL (140-400); Red Blood Count 3.08 M/mcL (3.82-4.97); Red Cell Distribution Width 15.6 % (11.5-14.5); Segmented Neutrophils % 94.6 %
[2017-09-22] MEDS: 0.9 % Sodium Chloride 1,000 ML IVC SCH ×2 (05:05→15:24)
[2017-09-22 05:18] LABS: % Iron Saturation 6 % (15-50); Ferritin 140 ng/ml (10-120); Iron 23 mcg/dL (50-170); Transferrin 257 mg/dL (203-362)
[2017-09-22 05:19] LABS: Calcium 9.1 mg/dL (8.6-10.3); Potassium 5.6 mEq/L (3.5-5.1)
[2017-09-22 05:44] LABS: Vitamin B12 846 pg/mL (250-1100)
[2017-09-22 05:54] LABS: Folate > 22.3 ng/mL (3.0-16.0)
[2017-09-22] MEDS ORDERED: Tiotropium 18 MCG inhalation IH SCH (09:00)
[2017-09-22] MEDS ORDERED: predniSONE 10 MG TABLET PO SCH (09:00)
[2017-09-22] MEDS: FLUoxetine HCl 10 MG CAPSULE PO SCH (09:19)
[2017-09-22] MEDS: Cholecalciferol (D-3) 1,000 UNIT TABLET PO SCH ×2 (09:19→20:28)
[2017-09-22] MEDS: Aspirin Enteric Coated 81 MG Tablet PO SCH (09:19)
--- NOTE | 2017-09-22 10:35 | Internal Med Progress Note ---
<Александр Estrada - Last Filed: 09/22/17 10:55> Date of Encounter: 09/22/17 Time of Encounter: 10:35 - Assessment and plan (1) Pulmonary embolism Current Visit: Yes Status: Acute Assessment and plan: Patient currently on heparin drip. Oxygen saturation 94% on 2 L of oxygen via nasal cannula. Patient's blood pressure has been labile. Last blood pressure reading was 98/60. We are obtaining a limited echo at this time to evaluate for new right heart strain. Family was informed about the severity of her illness. There were informed of all the plans for echo as well as all labs. They understood. Patient understood. All questions were answered. Qualifiers: Pulmonary embolism type: other Chronicity: acute Acute cor pulmonale presence: with acute cor pulmonale Qualified Code(s): I26.09 - Other pulmonary embolism with acute cor pulmonale (2) Third degree heart block Current Visit: Yes Status: Acute Assessment and plan: Patient has new third-degree AV block heart block. Patient currently bradycardic with a rate in the high 40s. Patient does not report any new symptoms. Dr. Vega recommended a limited echocardiogram and would hold on placing a pacemaker at this time. The patient's heart rate persistently in the 40s, Dr. Vega will place a pacemaker on Sunday. Continue telemetry and monitor patient's symptoms. (3) Acute kidney injury Current Visit: Yes Status: Acute Assessment and plan: Most likely secondary to acute PE and decreased ability to perfuse organisms as heart is probably strained. Giving fluid in this situation would most likely cause volume overload and worsening respiratory status. (4) DVT (deep venous thrombosis) Current Visit: Yes Status: Acute Assessment and plan: Currently on heparin drip Qualifiers: DVT location: lower extremity Affected thrombotic vein of extremity: popliteal Chronicity: acute Laterality: right Qualified Code(s): I82.431 - Acute embolism and thrombosis of right popliteal vein (5) Dyspnea Current Visit: Yes Status: Acute Assessment and plan: Secondary to pulmonary embolus and COPD, see above Qualifiers: Dyspnea type: unspecified Qualified Code(s): R06.00 - Dyspnea, unspecified (6) Hyponatremia Current Visit: Yes Status: Acute Assessment and plan: Patient's hyponatremic. Sodium is normally within normal limits. Last 3 have been 127, 125, 124 respectively. They are trending downward. Patient also has concomitant hyperkalemia. Chronic steroid user due to rheumatoid arthritis at 10 mg of prednisone daily so patient may have an element of adrenal suppression. This could have worsened with the recent stress from surgery and pulmonary embolus. Blood pressure been labile, but more on the lower side. We will give 100 mg Solu-Cortef every 8 hours and continue to monitor sodium. (7) Hyperkalemia Current Visit: Yes Status: Acute Assessment and plan: Potassium today is to 5.6. Repeat potassium revealed a level of 5.8. We will administer Kayexalate at this time. Patient was given a gram of calcium gluconate in the emergency department. She is being administered another gram right now to protect her myocardium. We will continue to trend the potassium. - Subjective Interval history: 82-year-old female with past medical history of COPD presents to the emergency department yesterday after having worsening shortness of breath as well as right leg pain and swelling. Patient had recent femoropopliteal bypass procedure performed on 09/11/2017. Patient had pulmonary perfusion imaging that revealed intermediate probability for pulmonary embolism. Patient also has a venous thrombosis in the right popliteal vein as well as the right greater saphenous vein. Patient currently on heparin at this time. Patient states that she is having shortness of breath at this time, but denies any chest pain, chest pressure, chest tightness. Patient denies any cough. Denies any fevers, worsening sputum production. Daughter states patient has had a little difficulty swallowing and appears slightly confused from her baseline. Chest X-Ray 09/21/17 10:57 IMPRESSION: Findings suggesting COPD with no acute pneumonia. Question new trace right pleural effusion. D/ / 09/21/2017 11:17:29 Anthony Yanez MD / gilma Interpreting Provider: Anthony Yanez MD Pulmonary Perfusion Imaging 09/21/17 13:13 IMPRESSION: 1. Intermediate probability for pulmonary embolism. 2. Abnormal chest radiograph with COPD and a right pleural effusion limit evaluation. D/ / Jona Rai MD / Jona Ria MD Interpreting Provider: Jona Rai MD Retroperitoneum Ultrasound 09/21/17 20:00 IMPRESSION: Kidneys are unremarkable. D/ / Ximena Schrader MD / Ximena Schrader MD Interpreting Provider: Ximena Schrader MD - Constitutional Vitals: Temp Pulse Resp BP Pulse Ox 98.3 F 42 22 98/60 94 09/22/17 06:59 09/22/17 06:59 09/22/17 06:59 09/22/17 06:59 09/22/17 06:59 General appearance: Present: cooperative, mild distress, A&O X 3, answers questions appropriately - Head Head exam: Present: atraumatic - Neck Neck exam general surgery: Present: full ROM, trachea midline - Respiratory Respiratory exam: Present: CTAB (But decreased air movement). Absent: rhonchi, wheezes - Cardiovascular Cardiovascular exam: Present: bradycardia Additional comments: Telemetry: Third-degree heart block with ventricular escape beats - GI/Abdominal GI/Abdominal exam: Present: soft. Absent: guarding, hernia, rebound, rigid - Neurological Exam Neurological exam: Present: alert, CN II-XII intact Internal Medicine: Result - Labs CBC & Chem 7: 09/22/17 04:13 09/22/17 09:59 Labs: Short CBC 09/22/17 Range/Units 04:13 WBC 19.2 H D (4.3-11.1) K/mcL Hgb 8.4 L (11.5-15.4) g/dL Hct 27.7 L (35.3-44.9) % Plt Count 393 (140-400) K/mcL Neutrophils # 18.2 H (1.6-8.9) K/mcL BMP 09/22/17 04:13 Sodium 124 L Potassium 5.6 H Chloride 93 L Carbon Dioxide 19 L BUN 62 H Creatinine 1.34 H Glucose 165 H Calcium 9.1 Cardiac Enzymes 09/21/17 09/21/17 09/22/17 Range/Units 17:54 21:51 04:13 Troponin I 0.05 H* 0.06 H* 0.10 H* (< 0.04) ng/mL - ABG Interpretation ABG results: PT/INR, D-dimer PT 11.6 Seconds (9.4-12.1) 09/21/17 11:13 - Impressions Impressions Retroperitoneum Ultrasound 09/21/17 20:00 IMPRESSION: Kidneys are unremarkable. D/ / Ximena Schrader MD / Ximena Schrader MD Interpreting Provider: Ximena Schrader MD Consult Discharge Plan - Plan Referrals: Haydee Blue DO [Primary Care Provider] - <Cam Tenorio - Last Filed: 09/22/17 18:37> Date of Encounter: 09/22/17 - Assessment and plan (1) Pulmonary embolism Current Visit: Yes Status: Acute Qualifiers: Pulmonary embolism type: other Chronicity: acute Acute cor pulmonale presence: without acute cor pulmonale Qualified Code(s): I26.99 - Other pulmonary embolism without acute cor pulmonale (2) DVT (deep venous thrombosis) Current Visit: Yes Status: Acute Qualifiers: DVT location: lower extremity Affected thrombotic vein of extremity: popliteal Chronicity: acute Laterality: right Qualified Code(s): I82.431 - Acute embolism and thrombosis of right popliteal vein (3) Third degree heart block Current Visit: Yes Status: Acute (4) Hyponatremia Current Visit: Yes Status: Acute (5) Acute kidney injury Current Visit: Yes Status: Acute (6) PAD (peripheral artery disease) Current Visit: Yes Status: Chronic - Constitutional Vitals: Temp Pulse Resp BP Pulse Ox 98.1 F 58 22 119/79 94 09/22/17 15:34 09/22/17 15:34 09/22/17 16:01 09/22/17 16:00 09/22/17 16:01 Internal Medicine: Result - Labs CBC & Chem 7: 09/22/17 04:13 09/22/17 15:30 Labs: Short CBC 09/22/17 Range/Units 04:13 WBC 19.2 H D (4.3-11.1) K/mcL Hgb 8.4 L (11.5-15.4) g/dL Hct 27.7 L (35.3-44.9) % Plt Count 393 (140-400) K/mcL Neutrophils # 18.2 H (1.6-8.9) K/mcL BMP 09/22/17 09/22/17 09/22/17 04:13 09:59 15:30 Sodium 124 L 125 L 127 L Potassium 5.6 H 5.8 H 5.4 H Chloride 93 L 93 L 96 L Carbon Dioxide 19 L 20 L 19 L BUN 62 H 64 H 67 H Creatinine 1.34 H 1.55 H 1.74 H Glucose 165 H 188 H 189 H Calcium 9.1 8.8 9.1 Cardiac Enzymes 09/21/17 09/21/17 09/22/17 Range/Units 17:54 21:51 04:13 Troponin I 0.05 H* 0.06 H* 0.10 H* (< 0.04) ng/mL Liver Function 09/22/17 Range/Units 15:30 Total Bilirubin 0.6 (0.3-1.0) mg/dL AST 39 (13-39) Units/L ALT 22 (7-52) Units/L Alkaline Phosphatase 63 (34-104) Units/L Albumin 3.3 L (3.5-5.7) g/dL Urine 09/22/17 Range/Units 11:50 Urine Color Dark Yellow (Yellow) Urine Clarity Turbid A (Clear) Urine pH 5.5 (5.0-8.0) pH Units Ur Specific [place] 1.022 (1.010-1.025) Urine Protein 100 H (Neg-Trace) mg/dL Urine Glucose (UA) Normal (Normal) mg/dL - ABG Interpretation ABG results: ABG ABG pH 7.41 pH Units (7.32-7.45) 09/22/17 14:10 ABG pCO2 27 mmHg (35-45) L 09/22/17 14:10 ABG pO2 66 mmHg (85-104) L 09/22/17 14:10 ABG O2 Saturation 94 % (95-98) L 09/22/17 14:10 PT/INR, D-dimer PT 11.6 Seconds (9.4-12.1) 09/21/17 11:13 - Impressions Impressions Retroperitoneum Ultrasound 09/21/17 20:00 IMPRESSION: Kidneys are unremarkable. D/ / Ximena Schrader MD / Ximena Schrader MD Interpreting Provider: Ximena Schrader MD Echocardiogram Limited Views 09/22/17 10:17 Impressions: Normal right ventricular structure and function. LVEF 50-55%. Left Ventricular Wall Motion: Rest Echo Findings The mid anterior septal wall was hypokinetic. All other wall segments showed normal motion. Findings: Study Quality * Technically adequate exam. Right Ventricle * Normal right ventricular structure and function. Right Atrium * Normal right atrial size. Aorta * Normally sized aortic root. Pericardium * The pericardium appears normal. ECG Findings * Advanced AV block Left Ventricle * LVEF 50-55%. * Normal LV chamber size, wall thickness and function. * Indeterminate diastolic function. Left Atrium * Moderately dilated left atrium. Interatrial Septum * Interatrial septum not well evaluated. IVC * The IVC is not well evaluated. - Attending Attestation I examined this patient and my medical decision-making was reviewed with the Resident Physician on 09/22/17. I agree with the documented findings, disposition and treatment plan as described except to the extent set forth below. Ms Boyer is currently admitted for acute PE, DVT and CHB. She remains high risk due to potential for worsening clinical status. Ms Boyer is alert but somewhat confused. Her BP has fluctuated. Sodium is low and she has JULISA. She denies pain or dyspnea at this time. No fever or chills. Exam alert Comfortable Mucus membranes dry Heart reg Lungs with few rhonchi Abd soft No edema I/P 1. PE 2. DVT 3. CHB 4. JULISA Further diagnoses and plan as above. Plan for pacemaker per cardiology recommendations.
[2017-09-22 10:49] LABS: Calcium 8.8 mg/dL (8.6-10.3); Potassium 5.8 mEq/L (3.5-5.1)
[2017-09-22 11:17] LABS: Thyroid Stimulating Hormone 1.193 mcIU/mL (0.340-5.600)
--- NOTE | 2017-09-22 13:04 | Cardiology Consult Note ---
Date of Encounter: 09/22/17 Time of Encounter: 09:45 Assessment and Plan (1) Pulmonary embolism Current Visit: Yes Status: Acute Per cardiology: -Venous duplex positive for DVT. -VQ scan performed and noted intermediate probability for PE. -On heparin drip. -On O2 per nasal cannula. SpO2 93% at time of assessment. -TTE pending. -Management per primary service. Qualifiers: Pulmonary embolism type: other Chronicity: acute Acute cor pulmonale presence: with acute cor pulmonale Qualified Code(s): I26.09 - Other pulmonary embolism with acute cor pulmonale (2) DVT (deep venous thrombosis) Current Visit: Yes Status: Acute Per cardiology: -Venous duplex positive for DVT right popliteal. -On heparin drip. -Management per primary service. Qualifiers: DVT location: lower extremity Affected thrombotic vein of extremity: popliteal Chronicity: acute Laterality: right Qualified Code(s): I82.431 - Acute embolism and thrombosis of right popliteal vein (3) High-grade atrioventricular block Current Visit: Yes Status: Acute Per cardiology: -ECGs reviewed with and noted to be high grade AV block. -BP stable at time of assessment. -Alert and oriented. -Electrolyte abnormalities noted, K 5.8. -Per discussion with , no emergent need for pacemaker at this time. -Will continue to monitor. -Possible EP consult/pacemaker of Sunday. -Can consider temporary pacemaker if clinical condition warrants. (4) Acute kidney injury Current Visit: Yes Status: Acute Per cardiology: -Baseline creatinine 0.7-0.8, -Creatinine today 1.34. -Electrolyte abnormalities noted. -Management per primary service. -Consider nephrology consult. (5) Hyperkalemia Current Visit: Yes Status: Acute Per cardiology: -K 5.1 admission, increased to 5.6, now 5.8. -was given calcium in ER. -Kayexelate ordered per primary service. -Recommend close monitoring. -Management per primary service. (6) Elevated troponin Current Visit: Yes Status: Acute Per cardiology: -Troponins 0.06, 0.05, 0.06, 0.1 in the setting of PE, DVT, JULISA. -Denies chest pain. -No acute ischemic ECG changes. -TTE 09/07/17 with LVEF 60%, severely dilated LA, mild MR, mild TR, severe pulmonary hypertension, no segmental wall motion abnormalities. -Do not suspect NSTEMI, suspect demand ischemia related to above. No cardiac rehab consult warranted. -Will check limited echocardiogram (pending). -Further recommendations pending limited TTE. (7) Elevated brain natriuretic peptide (BNP) level Current Visit: Yes Status: Acute Per cardiology: -BNP 2200s. -Lung sounds without rales, crackles. -Mild bilateral pedal edema noted, worse on right. -CHest x-ray with questionable trace pleural effusion. -Was given lasix IV per ER. -Net negative 300ml. -Will continue to monitor. Discussion w patient/family: The assessment and plan as outlined above was discussed with the patient and/or family members who expressed understanding and agreement. All questions were answered. Thank you for involving us in the care of your patient. Please call with any questions. Discussed and reviewed with . History of Present Illness Consult date: 09/21/17 Requesting physician: Freddy Arredondo Consult reason: high grade AV block Chief complaint: shortness of breath History of present illness: Ms. Boyer is a 82 year old female with a relevant past medical history of COPD , PAD s/p aortobifem bypass with recently, hyperlipidemia. Patient presented to [facility] with complaints of increased shortness of breath and unilateral leg swelling. Cardiology has been asked to see and evaluate patient regarding bradycardia. Patient is alert and oriented. Patient denies dizziness, lightheadedness. Reports shortness of breath is worse than baseline. Denies chest pain. Patient denies use of AV del blockers at home. Past Med Surg Social Fam HX - Past Medical History Attestation: Yes The following information was validated with the patient. Source: patient, old records reviewed, obtained from family Medical history: arthritis, COPD, hyperlipidemia, peripheral artery disease Psychiatric history: no psych history - Past Surgical History Surgical History: appendectomy, other, vascular surgery - Social History Smoking Status: Former smoker Smokeless Tobacco Status: No Alcohol use: none Drug use: none - Family History Daughter Living Status: Still Living Hx Family Cardiac Disorders: No Hx Family Respiratory Disorders: No Hx Family Cancer: No Hx Family GI Disorders: No Hx Family Endocrine Disorder: No Hx Family Neuromuscular Disorders: No Hx Family Neurologic Disorders: No Hx Family HEENT Disorders: No Hx Family Autoimmune Disorders: Yes (Rhuemitoid Arthritis) Medications and Allergies Cholecalciferol (Vitamin D3) [Vitamin D3] 1,000 unit PO BID 09/18/15 [History] FLUoxetine HCl [Prozac] 10 mg PO QAM 08/04/16 [History] Budesonide/Formoterol 160/4.5 [Symbicort 160/4.5] 2 puff IH BIDR 08/11/16 [ History] Docusate [Colace] 100 mg PO BID 10/30/16 [History] Multivitamin [One Daily Essential] 1 each PO DAILY 10/30/16 [History] Oxygen 2 l NS AD 10/30/16 [History] Naproxen [Naprosyn] 500 mg PO Q12H PRN 04/11/17 [History] Tiotropium [place] [Spiriva Respimat] 4 gm IH DAILY 04/11/17 [History] predniSONE [PredniSONE] 10 mg PO DAILY 04/11/17 [History] Aspirin [Lo-Dose Aspirin EC] 81 mg PO DAILY 08/31/17 [History] Albuterol Sulfate [Albuterol Inhaler] 2 puff IH Q4HR PRN 09/11/17 [History] Calcium Carbonate [Calcium] 500 mg PO DAILY 09/11/17 [History] Clopidogrel Bisulfate [Plavix] 75 mg PO DAILY #30 tablet 09/12/17 [Rx] HYDROcodone/Acet 5/325 mg [[place] 5-325 mg] 1 tab PO Q6HR PRN 10 Days #14 tablet 09/12/17 [Rx] 3 Allergy/AdvReac Type Severity Reaction Status Date / Time No Known Allergies Allergy Verified 09/11/17 06:35 All Systems Review: The remainder of the systems were reviewed and are negative - Cardiovascular Cardiovascular: as per HPI, dyspnea at rest, dyspnea on exertion, leg edema Physical Examination Vital Signs, Last 4 Hours Vital Signs Temperature 98.0 F 09/21/17 10:51 Pulse Rate 44 09/21/17 10:51 Respiratory Rate 16 09/21/17 10:51 Blood Pressure 146/53 09/21/17 10:51 O2 Sat by Pulse Oximetry 95 09/21/17 10:51 General: Conversant, Other (Conversational dyspnea noted. ) HEENT: Atraumatic, Normocephaly, Mucus Membranes Moist Neck: No JVD, Normal carotid pulses Cardiac: Normal S1 and S2, No Murmur, Other (Bradycardic. ) Lungs: Other (Lung sounds diminished throughout. ) Neuro: Alert and responsive, No focal deficits noted Abdomen: Soft, Non-Tender Skin: No rashes noted on visualized skin Musculoskeletal: No Chest Wall Tenderness Extremities: No Clubbing, No Cyanosis, Normal Pulses, Other (Bilateral lower extremity edema noted. Edema increased to right lower extremity. ) Results 09/22/17 04:13 09/22/17 09:59 Lab Results 09/21/17 09/21/17 09/21/17 17:54 21:51 21:51 WBC Hgb Hct Plt Count APTT 57.0 H D Sodium Potassium Chloride Carbon Dioxide BUN Creatinine Glucose Calcium Troponin I 0.05 H* 0.06 H* B-Natriuretic Peptide TSH Impressions Pulmonary Perfusion Imaging 09/21/17 13:13 IMPRESSION: 1. Intermediate probability for pulmonary embolism. 2. Abnormal chest radiograph with COPD and a right pleural effusion limit evaluation. D/ / Jona Rai MD / Jona Rai MD Interpreting Provider: Jona Rai MD Retroperitoneum Ultrasound 09/21/17 20:00 IMPRESSION: Kidneys are unremarkable. D/ / Ximena Schrader MD / Ximena Schrader MD Interpreting Provider: Ximean Schrader MD Active Medications Hydrocodone Bitart/Acetaminophen ([place] 5-325 Mg) 1 tab PO Q6HR PRN PRN Reason: Moderate Pain Stop: 03/23/18 15:36 Albuterol Sulfate (Albuterol Inhaler) 2 puff IH Q2HR PRN PRN Reason: Shortness Of Breath/Wheezing Stop: 03/23/18 22:09 Albuterol/Ipratropium (Duoneb) 3 ml IH [id number] GARRY Stop: 03/24/18 00:01 Last Admin: 09/22/17 11:47 Dose: 3 ml Aspirin (Aspirin Ec) 81 mg PO DAILY GARRY Stop: 03/24/18 09:01 Last Admin: 09/22/17 09:19 Dose: Not Given Calcium Carbonate (Tums) 500 mg PO DAILY GARRY Stop: 03/24/18 09:01 Last Admin: 09/22/17 09:19 Dose: Not Given Clopidogrel Bisulfate (Plavix) 75 mg PO DAILY GARRY Stop: 03/24/18 09:01 Last Admin: 09/22/17 09:19 Dose: Not Given Diphenhydramine HCl (Benadryl) 25 mg PO HS [facility] Stop: 03/23/18 21:01 Last Admin: 09/21/17 21:36 Dose: 25 mg Docusate Sodium (Colace) 100 mg PO BID GARRY PRN Reason: Protocol Stop: 03/23/18 21:01 Last Admin: 09/22/17 09:19 Dose: Not Given Fluoxetine HCl (Prozac) 10 mg PO QAM [facility] Stop: 03/24/18 09:01 Last Admin: 09/22/17 09:19 Dose: Not Given Heparin Sodium (Porcine) (Heparin) 3,800 unit 70 unit/kg (3800 unit) IVP Q6HR PRN PRN Reason: SEE COMMENTS Stop: 03/23/18 13:14 Heparin Sodium (Porcine) (Heparin) 1,900 unit 35 unit/kg (1900 unit) IVP Q6H PRN PRN Reason: SEE COMMENTS Stop: 03/23/18 13:14 Last Admin: 09/21/17 22:42 Dose: 1,900 unit Hydrocortisone Sodium Succinate (Solu-Cortef) 100 mg IVP Q8HR GARRY Stop: 03/24/18 16:01 Heparin Sodium/Dextrose (Heparin 25,000 Unit/500 Ml D5w) 25,000 unit in 500 mls @ 15.241 mls/hr IVC .Q24H GARRY; 14 UNIT/KG/HR PRN Reason: Protocol Stop: 03/23/18 13:16 Last Titration: 09/22/17 11:11 Dose: 15.79 unit/kg/hr, 17.2 mls/hr Naloxone HCl (Narcan) 0.4 mg IVP Q2MIN PRN PRN Reason: SEE COMMENTS Stop: 03/23/18 15:44 Tiotropium [place] (Spiriva) 4 mcg IH DAILY [facility] Stop: 03/24/18 09:01 Vitamin D (Vitamin D) 1,000 unit PO BID [facility] Stop: 03/23/18 21:01 Last Admin: 09/22/17 09:19 Dose: Not Given Laboratory Tests 08/24/17 09/12/17 09/21/17 10:46 05:50 11:13 WBC Hgb Sodium Potassium 5.1 Creatinine 0.79 0.80 1.44 H Troponin I 0.06 H* B-Natriuretic Peptide [facility] 09/21/17 09/21/17 09/22/17 17:54 21:51 04:13 WBC 19.2 H D Hgb 8.4 L Sodium Potassium Creatinine Troponin I 0.05 H* 0.06 H* B-Natriuretic Peptide [facility] 09/22/17 09/22/17 09/22/17 04:13 04:13 04:13 WBC Hgb Sodium 124 L Potassium 5.6 H Creatinine 1.34 H Troponin I 0.10 H* B-Natriuretic Peptide 2168 H TSH 09/22/17 09:59 WBC Hgb Sodium 125 L Potassium 5.8 H Creatinine 1.55 H Troponin I B-Natriuretic Peptide TSH 1.193 - Imaging and Cardiology Chest Xray: report reviewed Echo: pending, report reviewed - EKG Interpretation EKG results cardiology: personally reviewed (ECG with high grade AV block, HR 48.), other (Telemetry reviewed with average HR previous 12 hours noted to be 48 , high grade AV block.) Consult Discharge Plan - Plan Referrals: Haydee Blue DO [Primary Care Provider] -
[2017-09-22 13:24] LABS: Bilirubin,Urine Small (Negative); Blood,Urine Large (Negative); Clarity,Urine Turbid (Clear); Color,Urine Dark Yellow (Yellow); Glucose,Urine (UA) Normal (Normal); Ketones,Urine Negative (Negative); Leukocyte Esterase,Urine Small (Negative); Nitrite,Urine Negative (Negative); PH,Urine 5.5 pH Units (5.0-8.0); Protein,Urine 100 mg/dL (Neg-Trace); Specific Gravity,Urine 1.022 (1.010-1.025); Urobilinogen,Urine Normal (Normal)
[2017-09-22 13:27] LABS: Bacteria,Urine Few per hpf (None-Few); Hyaline Casts,Urine None Seen per lpf (None-Few); RBC,Urine 15-30 per hpf (0-3); Squamous Epithelial Cell,Urine Many per lpf (None-Few); WBC,Urine 15-30 per hpf (0-3)
[2017-09-22 14:28] LABS: ABG Base Excess -7 mEq/L (-2 to 3); ABG HCO3 17 mEq/L (21-27); ABG Oxygen Saturation 94 % (95-98); ABG PCO2 27 mmHg (35-45); ABG PH 7.41 pH Units (7.32-7.45); ABG PO2 66 mmHg (85-104); ABG TCO2 18 mEq/L (20-26)
[2017-09-22 14:29] LABS: Sodium, Urine 15.3 mEq/L
[2017-09-22] MEDS ORDERED: 0.9 % Sodium Chloride 250 ML IVC ONE (14:52)
[2017-09-22] MEDS: Hydrocortisone Sodium Succ 100 MG/2 ML VIAL IVP SCH ×2 (15:23→23:31)
[2017-09-22 16:06] LABS: Albumin 3.3 g/dL (3.5-5.7); Albumin/Globulin Ratio 1.2 (1.1-2.2); Bilirubin,Total 0.6 mg/dL (0.3-1.0); Calcium 9.1 mg/dL (8.6-10.3); Globulin 2.7 g/dL (2.4-3.5); Potassium 5.4 mEq/L (3.5-5.1)
[2017-09-22] MEDS: Heparin 25,000 UNIT/500 ML D5W 25,000 UNIT/500 ML BAG IVC SCH (20:29)
[2017-09-22] MEDS ORDERED: *HR* LORazepam 2 MG/ML VIAL IVP ONE (23:18)
[2017-09-22] MEDS: Melatonin 3 MG TABLET PO SCH (23:31)
[2017-09-23] MEDS: Ipratropium/Albuterol Neb 3 ML IH SCH ×6 (00:25→20:05)
[2017-09-23 01:47] LABS: Calcium 8.2 mg/dL (8.6-10.3); Potassium 4.6 mEq/L (3.5-5.1)
[2017-09-23] MEDS ORDERED: Furosemide 20 MG/2 ML VIAL IVP ONE (03:43)
[2017-09-23 06:08] LABS: Magnesium 1.9 mg/dL (1.6-2.6)
[2017-09-23] MEDS ORDERED: 0.9 % Sodium Chloride 1,000 ML ONE (06:16)
[2017-09-23] MEDS: 0.9 % Sodium Chloride 1,000 ML IVC SCH (06:26)
[2017-09-23 07:35] LABS: Basophils % 0.1 %; Hematocrit 23.8 % (35.3-44.9); Hemoglobin 7.4 g/dL (11.5-15.4); Immature Granulocytes % 0.7 % (0-4); Lymphocytes # 0.5 K/mcL (0.6-4.6); Lymphocytes % 3.6 %; Mean Corpuscular HGB Conc 31.1 g/dL (31.6-35.5); Mean Corpuscular Hemoglobin 27.8 pg (28.0-33.3); Mean Corpuscular Volume 89.5 fL (83.0-100.0); Mean Platelet Volume 10.8 fL (9.4-12.4); Monocytes # 0.4 K/mcL (0.0-1.3); Platelet Count 321 K/mcL (140-400); Red Blood Count 2.66 M/mcL (3.82-4.97); Red Cell Distribution Width 15.9 % (11.5-14.5); Segmented Neutrophils % 92.6 %
[2017-09-23 08:03] LABS: Anisocytosis 1+ (Not Present); Burr Cells 2+ (Not Present); Ovalocytes 1+ (Not Present); Platelet Estimate Normal (Normal)
--- NOTE | 2017-09-23 08:25 | Internal Med Progress Note ---
<Александр Estrada - Last Filed: 09/23/17 09:59> Date of Encounter: 09/23/17 Time of Encounter: 08:20 - Assessment and plan (1) Third degree heart block Current Visit: Yes Status: Acute Assessment and plan: Patient's heart rate has remained in the 40s overnight. Patient's blood pressures have been more labile. She has had systolics in the 70s overnight. This morning, however, systolic has not proved to the low 100s. Creatinine has worsened. Lactic acid has worsened. Believe that her organs are not being perfused well due to decreased heart rate causing decreased cardiac output. Lung exam reveals rales. Patient has been getting fluids to try to overcome her acute kidney injury. She is becoming more volume overloaded. Dr. Vega was made aware of patient's worsening condition. He is taking patient back immediately for emergent temporary pacemaker placement. Family was made aware of patient's worsening clinical condition. Patient still voiced that she wanted the pacemaker placed if this would help her. At this time, I believe that increasing the patient's heart rate would help with cardiac output and help her perfuse her organs. There was discussion on whether patient would want to be on medications to help with blood pressure control as patient's blood pressure has been more labile and lower. They did not want to use it to any pressors at this time. (2) Pulmonary embolism Current Visit: Yes Status: Acute Assessment and plan: Patient had an echocardiogram performed yesterday. There was no evidence of any right ventricular strain at that time. Ejection fraction was 50-55%. There was some hypokinesis of the mid anterior septal wall. Do not believe that the pulmonary embolism is causing the complete heart block. Currently on heparin drip at this time. Patient is not hypoxic. Qualifiers: Pulmonary embolism type: other Chronicity: acute Acute cor pulmonale presence: without acute cor pulmonale Qualified Code(s): I26.99 - Other pulmonary embolism without acute cor pulmonale (3) Acute kidney injury Current Visit: Yes Status: Acute Assessment and plan: Patient's creatinine has worsened. Patient's creatinine was 1.44, 1.74, and overnight it became 2.27. Believe this is secondary to not being able to perfuse her organs well. As her heart rate has remained in the 40s. (4) DVT (deep venous thrombosis) Current Visit: Yes Status: Acute Assessment and plan: Patient currently on heparin at this time. Patient has a right popliteal vein DVT as well as a superficial venous thrombosis in the greater saphenous vein Qualifiers: DVT location: lower extremity Affected thrombotic vein of extremity: popliteal Chronicity: acute Laterality: right Qualified Code(s): I82.431 - Acute embolism and thrombosis of right popliteal vein (5) Anemia Current Visit: Yes Status: Acute Assessment and plan: Patient's hemoglobin has dropped to 7.4. Was 8.4 yesterday. We will give patient one unit of blood at this time. I believe that the decreased hemoglobin at this point could most likely be dilutional. However, patient is currently on heparin. There could be some concerns that patient may have a GI bleed. We are obtaining a formal Hemoccult study at this time. Patient requires heparin for pulmonary embolus and DVTs. We will also initiate therapy with Protonix 40 mg once daily. Qualifiers: Anemia type: unspecified type Qualified Code(s): D64.9 - Anemia, unspecified (6) Dyspnea Current Visit: Yes Status: Acute Assessment and plan: See above Qualifiers: Dyspnea type: unspecified Qualified Code(s): R06.00 - Dyspnea, unspecified (7) Hyponatremia Current Visit: Yes Status: Acute Assessment and plan: Sodium has increased one point to 128 after administration of normal saline. Continue to monitor (8) Hyperkalemia Current Visit: Yes Status: Acute Assessment and plan: Potassium is now 4.6. Has improved significantly. We will continue to monitor. - Subjective Interval history: 82-year-old female with past medical history of COPD presents to the emergency department yesterday after having worsening shortness of breath as well as right leg pain and swelling. Patient had recent femoropopliteal bypass procedure performed on 09/11/2017. Patient had pulmonary perfusion imaging that revealed intermediate probability for pulmonary embolism. Patient also has a venous thrombosis in the right popliteal vein as well as the right greater saphenous vein. Patient currently on heparin at this time. Patient states that she is having shortness of breath at this time, but denies any chest pain, chest pressure, chest tightness. Patient denies any cough. Denies any fevers, worsening sputum production. Daughter states patient has had a little difficulty swallowing and appears slightly more confused from her baseline. Chest X-Ray 09/21/17 10:57 IMPRESSION: Findings suggesting COPD with no acute pneumonia. Question new trace right pleural effusion. D/ / 09/21/2017 11:17:29 Anthony Yanez MD / gilma Interpreting Provider: Anthony Yanez MD Pulmonary Perfusion Imaging 09/21/17 13:13 IMPRESSION: 1. Intermediate probability for pulmonary embolism. 2. Abnormal chest radiograph with COPD and a right pleural effusion limit evaluation. D/ / Jona Rai MD / Jona Rai MD Interpreting Provider: Jona Rai MD Retroperitoneum Ultrasound 09/21/17 20:00 IMPRESSION: Kidneys are unremarkable. D/ / Ximena Schrader MD / Ximena Schrader MD Interpreting Provider: Ximena Schrader MD - Constitutional Vitals: Temp Pulse Resp BP Pulse Ox 97.9 F 46 18 95/48 95 09/23/17 06:48 09/23/17 06:48 09/23/17 07:29 09/23/17 07:29 09/23/17 07:29 General appearance: Present: cooperative, mild distress, A&O X 3, answers questions appropriately Internal Medicine: Result - Labs CBC & Chem 7: 09/23/17 04:43 09/23/17 01:05 Labs: Short CBC 09/23/17 Range/Units 04:43 WBC 13.0 H (4.3-11.1) K/mcL Hgb 7.4 L (11.5-15.4) g/dL Hct 23.8 L (35.3-44.9) % Plt Count 321 (140-400) K/mcL Neutrophils # 12.0 H (1.6-8.9) K/mcL BMP 09/22/17 09/22/17 09/23/17 09:59 15:30 01:05 Sodium 125 L 127 L 128 L Potassium 5.8 H 5.4 H 4.6 Chloride 93 L 96 L 95 L Carbon Dioxide 20 L 19 L 19 L BUN 64 H 67 H 72 H Creatinine 1.55 H 1.74 H 2.27 H Glucose 188 H 189 H 159 H Calcium 8.8 9.1 8.2 L Liver Function 09/22/17 Range/Units 15:30 Total Bilirubin 0.6 (0.3-1.0) mg/dL AST 39 (13-39) Units/L ALT 22 (7-52) Units/L Alkaline Phosphatase 63 (34-104) Units/L Albumin 3.3 L (3.5-5.7) g/dL Urine 09/22/17 Range/Units 11:50 Urine Color Dark Yellow (Yellow) Urine Clarity Turbid A (Clear) Urine pH 5.5 (5.0-8.0) pH Units Ur Specific [place] 1.022 (1.010-1.025) Urine Protein 100 H (Neg-Trace) mg/dL Urine Glucose (UA) Normal (Normal) mg/dL - ABG Interpretation ABG results: ABG ABG pH 7.41 pH Units (7.32-7.45) 09/22/17 14:10 ABG pCO2 27 mmHg (35-45) L 09/22/17 14:10 ABG pO2 66 mmHg (85-104) L 09/22/17 14:10 ABG O2 Saturation 94 % (95-98) L 09/22/17 14:10 PT/INR, D-dimer PT 11.6 Seconds (9.4-12.1) 09/21/17 11:13 - Impressions Impressions Echocardiogram Limited Views 09/22/17 10:17 Impressions: Normal right ventricular structure and function. LVEF 50-55%. Left Ventricular Wall Motion: Rest Echo Findings The mid anterior septal wall was hypokinetic. All other wall segments showed normal motion. Findings: Study Quality * Technically adequate exam. Right Ventricle * Normal right ventricular structure and function. Right Atrium * Normal right atrial size. Aorta * Normally sized aortic root. Pericardium * The pericardium appears normal. ECG Findings * Advanced AV block Left Ventricle * LVEF 50-55%. * Normal LV chamber size, wall thickness and function. * Indeterminate diastolic function. Left Atrium * Moderately dilated left atrium. Interatrial Septum * Interatrial septum not well evaluated. IVC * The IVC is not well evaluated. Consult Discharge Plan - Plan Referrals: Haydee Blue, [Primary Care Provider] - <Cam Tenorio - Last Filed: 09/23/17 17:50> Date of Encounter: 09/23/17 - Assessment and plan (1) Pulmonary embolism Current Visit: Yes Status: Acute Qualifiers: Pulmonary embolism type: other Chronicity: acute Acute cor pulmonale presence: without acute cor pulmonale Qualified Code(s): I26.99 - Other pulmonary embolism without acute cor pulmonale (2) DVT (deep venous thrombosis) Current Visit: Yes Status: Acute Qualifiers: DVT location: lower extremity Affected thrombotic vein of extremity: popliteal Chronicity: acute Laterality: right Qualified Code(s): I82.431 - Acute embolism and thrombosis of right popliteal vein (3) Third degree heart block Current Visit: Yes Status: Acute (4) Hyponatremia Current Visit: Yes Status: Acute (5) Acute renal failure Current Visit: Yes Status: Suspected Qualifiers: Acute renal failure type: with acute tubular necrosis Qualified Code(s): N17.0 - Acute kidney failure with tubular necrosis (6) Anemia Current Visit: Yes Status: Suspected Qualifiers: Anemia type: other cause Other causes of anemia: acute posthemorrhagic Qualified Code(s): D62 - Acute posthemorrhagic anemia (7) PAD (peripheral artery disease) Current Visit: Yes Status: Chronic - Constitutional Vitals: Temp Pulse Resp BP Pulse Ox 98.0 F 70 20 125/67 93 09/23/17 15:00 09/23/17 17:00 09/23/17 15:24 09/23/17 17:00 09/23/17 15:24 Internal Medicine: Result - Labs CBC & Chem 7: 09/23/17 16:57 09/23/17 16:57 Labs: Short CBC 09/23/17 09/23/17 Range/Units 04:43 16:57 WBC 13.0 H 11.0 (4.3-11.1) K/mcL Hgb 7.4 L 8.7 L (11.5-15.4) g/dL Hct 23.8 L 27.8 L (35.3-44.9) % Plt Count 321 304 (140-400) K/mcL Neutrophils # 12.0 H 9.9 H (1.6-8.9) K/mcL BMP 09/23/17 09/23/17 09/23/17 01:05 11:32 16:57 Sodium 128 L 129 L 130 L Potassium 4.6 4.7 4.5 Chloride 95 L 100 99 Carbon Dioxide 19 L 14 L 19 L BUN 72 H 75 H 76 H Creatinine 2.27 H 2.44 H 2.41 H Glucose 159 H 108 H 104 Calcium 8.2 L 7.6 L 8.0 L Liver Function 09/23/17 09/23/17 Range/Units 11:32 16:57 Total Bilirubin 0.3 0.5 (0.3-1.0) mg/dL Direct Bilirubin 0.2 (0.0-0.2) mg/dL AST 75 H 58 H (13-39) Units/L ALT 43 43 (7-52) Units/L Alkaline Phosphatase 62 59 (34-104) Units/L Albumin 2.8 L 3.4 L (3.5-5.7) g/dL - ABG Interpretation ABG results: ABG ABG pH 7.41 pH Units (7.32-7.45) 09/22/17 14:10 ABG pCO2 27 mmHg (35-45) L 09/22/17 14:10 ABG pO2 66 mmHg (85-104) L 09/22/17 14:10 ABG O2 Saturation 94 % (95-98) L 09/22/17 14:10 PT/INR, D-dimer PT 11.6 Seconds (9.4-12.1) 09/21/17 11:13 - Attending Attestation I examined this patient and my medical decision-making was reviewed with the Resident Physician on 09/23/17. I agree with the documented findings, disposition and treatment plan as described except to the extent set forth below. Ms Boyer is currently admitted for acute DVT/PE and CHB. She remains high risk at this time due to potential for worsening clinical status. Ms Boyer declined and was taken for emergency temp pacer today. No fever or chills. BP improved after pacer. She has been resting since. Exam Comfortable Mucus membranes dry Heart reg No wheeze I/P 1. DVT/PE 2. CHB with temp pacer 3. JULISA 4. Hyponatremia 5. Anemia -? bleeding Further diagnoses and plan as above
[2017-09-23] MEDS: Piperacillin/Tazobactam 3.375 GM in 0.9 % Sodium Chloride Mini Bag 100 ML IVPB SCH ×2 (08:31→18:57)
[2017-09-23] MEDS: Hydrocortisone Sodium Succ 100 MG/2 ML VIAL IVP SCH ×3 (08:31→23:39)
--- NOTE | 2017-09-23 08:43 | Pre-Sedation Evaluation ---
Pre-sedation evaluation - Pre-sedation checklist Date of procedure: 09/23/17 Procedure: temp pacemaker Recent Vitals: Last Vital Signs Temp 97.9 F 09/23/17 06:48 Pulse 46 09/23/17 06:48 Resp 18 09/23/17 07:29 BP 95/48 09/23/17 07:29 Pulse Ox 95 09/23/17 07:29 H&P (including ROS) documented in medical record: Yes Previous reaction to sedatives/anesthetics: No Dietary Status: NPO after Midnight ASA Classification *see protocol: CLASS III-Severe systemic disease Plan of Care: Pt appropriate candidate for procedure/moderate/conscious sedation , Risks/benefits of procedure/sedation discussed w/ patient/family
[2017-09-23] MEDS ORDERED: Tiotropium 18 MCG inhalation IH SCH (09:00)
[2017-09-23] MEDS ORDERED: Heparin 1,000 UNITS/500 mL 500 ML ONE (09:04)
[2017-09-23] MEDS ORDERED: *HR* Midazolam HCl 2 MG/2 ML VIAL ONE (10:02)
[2017-09-23] MEDS ORDERED: *HR* FentaNYL (PF) 100 MCG/2 ML VIAL ONE (10:02)
--- NOTE | 2017-09-23 10:33 | Event Note ---
Date of Encounter: 09/23/17 Time of Encounter: 10:30 - Cardiology Event Note Yesterday, patient was mentating with normal blood pressure. VQ scan shows likely pulmonary embolism but unable to definitely identify location. TTE shows normal EF and RV function without thrombus visualized. Today, patient is lethargic and hypotensive with worsening renal function and lactic acidosis. Temporary pacing wire was successfully placed under fluoro with all attempts made to avoid going distally into the pulmonary artery. HR set at 70. Left femoral venous access as patient has R DVT and recent surgery.
--- NOTE | 2017-09-23 10:40 | Invasive Diagnostic Lab Proc ---
Name: Tiana Boyer Date of Study: 09/23/2017 Date: 1935 Ht: 63.0in Medical Record#: [id number] Age: 82 Wt: 128.75lb Gender: Female BSA: 1.6 Order #: [id number] BMI: 22.81 Physicians Procedure Physician: Jimbo Vega MD, FACC Referring MD: Freddy Arredondo CNP Referring MD: Haydee Blue DO Staff Name Position Time In Chad Villagomez RN Monitor 09:49 AM Herrera Gallego RN Rn Mds 09:49 AM Nelia Lugo RT (R) Scrub 09:49 AM Indications Indication high grade av block Procedures Performed Procedure INS/RPL TEMP PM LEAD/CATH;SNGL Pre-Procedure Checklist Informed consent is complete signed and on chart. H&P is on chart. ID band is on and ID verified with patient. Patient NPO for procedure The procedure was described for the patient and questions were answered. Blood Pressure: 95/44 ECG is on chart. Rhythm: Atrial Fib/Flutter (preeti Plan of Care Patient will tolerate the procedure without complications. Adequate level of comfort will be maintained. Hemodynamics will remain stable Patient will recover from procedure without complications. Respiratory function will be maintained. Cardiac rhythm will remain stable. Patient temperature will be maintained. Patient and/or family have verbalized understanding of the procedure. Patient Education Chief Complaint/Reason for Test: Temporary pacemaker Developmental Category: Geriatric (65+ years) Developmentally Appropriate for Age: Yes Learning Barriers: None Education Needs: Procedure Education Method: Verbal Information Taught: Temporary pacemaker Educational Evaluation: Able to repeat information Intravenous Access Time IV Size Location DC'd Fluid/Drip Rate Units RN 09:08 AM 18g 1 07/05" Patent On Arrival Rt Antecubital 0.9NaCl 25 ml/hr Herrera Gallego RN 09:08 AM Rt Forearm Heparin 860 units/hr Herrera Gallego RN Allergies NKDA Vital Signs Time BP (mmHg) HR (bpm) O2 Sat. RR (bpm) LOC 09:05 AM 95 / 44 46 99 % 28 5 = Fully awake and oriented or at pre-proc level 09:50 AM / % 5 = Fully awake and oriented or at pre-proc level 09:50 AM / % 4 = Oriented but drowsy 10:05 AM / % 4 = Oriented but drowsy 09:49 AM 110 / 60 48 99 % 25 09:55 AM 108 / 54 53 99 % 27 10:00 AM 109 / 66 46 100 % 23 10:05 AM 108 / 62 46 100 % 23 10:09 AM 120 / 51 45 96 % 19 10:14 AM 98 / 55 44 100 % 18 10:19 AM 108 / 62 80 96 % 16 10:24 AM 105 / 57 69 96 % 15 10:29 AM 104 / 57 70 93 % 14 Procedural Medications Time Medication Dose Units Method Given By 09:50 AM Oxygen 4 L/min nasal cannula Herrera Gallego RN 10:04 AM Versed 1 mg Intravenous Herrera Gallego RN 10:05 AM Fentanyl 12.5 mcg Intravenous Herrera Gallego RN 10:08 AM Lidocaine 2% 20 ml Subcutaneous Jimbo Vega MD, [facility] ASA Classification: CLASS III- Severe systemic disease (i.e. prior AMI, diabetes with vascular complications, morbid obesity) Bertram Score Preprocedure Postprocedure Activity Activity Circulation Circulation Consciousness Consciousness O2 Saturation O2 Saturation Respiratory Respiratory Total Score Total Score Contrast Agent: Isovue Diagnostic Contrast: 0 ml Fluoro Dose: 28 mGy Procedure Log Time Note Enter By 09:09 AM CathStat 09:45 AM Patient oriented to time, place, person, president of the [facility]. Verbalizes understanding of procedure and risks. 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 Verbal consent obtained. csmith 09:48 AM Case Start 09:48 AM Vitals capture started with the following parameters, Patient=Adult, Interval=5 min, Initial Ahsmjisz=225 mmHg, Deflation Rate=3 mmHg, Cuff placed on Right Arm 09:49 AM Pt arrived to woven label designer 1 at 09:40 csmith 09:49 AM Chad Villagomez RN Position: Monitor Time in: 09:49 csmith 09:49 AM HR=48 bpm, IJXT=365/60 mmhg, SpO2=99.0 %, Resp=25 B/min, Comment=aflutter with slow vent. response 09:49 AM Herrera Gallego RN Position: Rn Mds Time in: 09:49 csmith 09:49 AM Nelia Lugo RT (R) Position: Scrub Time in: 09:49 csmith 09:49 AM Patient charges- Angio tray pack, Navilyst 3mm J, Pulse Oximetry and ACIST tubing and transducer csmith 09:50 AM Hair removed from procedure site in procedure lab using clippers. Left groin prepped with Chloraprep by Nelia Lugo (Molly), then patient was draped. Skin intact. csmith 09:50 AM Physician arrived :50 csmith 09:50 AM ASA Class CLASS III- Severe systemic disease (i.e. prior AMI, diabetes with vascular complications, morbid obesity) csmith 09:50 AM Meet and greet completed csmith :50 AM Sign in performed according to hospital policy. csmith 09:50 AM Procedure start :50 csmith :50 AM Time: :50 Oxygen on at 4 L/min per nasal cannula by Herrera Gallego RN [facility] 09:50 AM Time: :50 Patient comfortable and pain free: Yes csmith 09:50 AM Time: :50LOC: 5 = Fully awake and oriented or at pre-proc level csmith 09:55 AM HR=53 bpm, FMNV=980/54 mmhg, SpO2=99.0 %, Resp=27 B/min, Comment=aflutter with slow vent. response 10:00 AM HR=46 bpm, GNTY=972/66 mmhg, MqJ6=399.0 %, Resp=23 B/min, Comment=aflutter with slow vent. response 10:05 AM Time: 10:04 Versed 1 mg Intravenous Given by Herrera Gallego RN [facility] 10:05 AM Time: 10:05 Fentanyl 12.5 mcg Intravenous Given by Herrera Gallego RN [facility] 10:05 AM Time: 09:50LOC: 4 = [facility]ed but drowsy [facility] 10[facility] AM Time: 09:50 Patient comfortable and pain free: Yes csmith 10:05 AM HR=46 bpm, MBYZ=395/62 mmhg, YlE5=820.0 %, Resp=23 B/min, Comment=aflutter with slow ventricular response 10:08 AM Time out performed according to hospital policy csmith 10:09 AM HR=45 bpm, XHBL=344/51 mmhg, SpO2=96.0 %, Resp=19 B/min, Comment=aflutter with slow vent. response 10:12 AM Time: 10:08 20 ml Lidocaine 2% to left groin Subcutaneous Given by Jimbo Vega MD, [facility] 10:12 AM Access obtained by percutaneous puncture. 6Fr 11cm locking pacer sheath placed in left Femoral vein. [id number] csmith 10:14 AM PstProc:Bard Bipolar Pacing Catheter Temp pacer inserted into left femoral vein csmith 10:14 AM HR=44 bpm, NIBP=98/55 mmhg, RfU3=493.0 %, Resp=18 B/min, Comment=aflutter with slow vent. response 10:19 AM PstProc: Temp pacer on. csmith 10:19 AM HR=80 bpm, RLJB=323/62 mmhg, SpO2=96.0 %, Resp=16 B/min, Comment=paced 10:19 AM PstProc: Temp pacer turned on, rate 80 ppm, mA 10, sensitivity 2 csmith 10:19 AM PstProc: Sheath(s) sutured in due to Venous access. csmith 10:19 AM PstProc: Pacer is inserted at 59 cm csmith 10:20 AM PstProc: Temp pacer turned on, rate 70 ppm, mA 10, sensitivity 2 csmith 10:20 AM Time: 10:05 Patient comfortable and pain free: Yes csmith 10:20 AM Time: 10:05LOC: 4 = Oriented but drowsy csmith 10:22 AM Procedure completed at 10:22 csmith 10:22 AM Sign out completed: Radiation Dose 28 mGy Fluoro Time: 3 Isovue 370 - 200ml contrast 0 ml given by Jimbo Vega MD, FACC. Complications: NoneCardiac Rehab Consult needed: NoConfirmed administered medications: Yes csmith 10:24 AM HR=69 bpm, QWSI=399/57 mmhg, SpO2=96.0 %, Resp=15 B/min 10:24 AM Sheath left in place to be pulled on floor/holding area csmith 10:24 AM Estimated Blood Loss: minimal csmith 10:24 AM Post ECG Paced csmith 10:24 AM Post Blood Pressure 105/57 csmith 10:25 AM 10:25 Post Pulses Bilateral DP Doppler csmith 10:25 AM Information taught Temporary pacemaker csmith 10:25 AM Education needs Responsibilities of Patient in Care csmith 10:25 AM Learning barriers :None csmith 10:25 AM Education Methods Verbal csmith 10:25 AM Education evaluation Able to repeat information csmith 10:26 AM Site status No bleeding/hematoma - Lt Groin as reported by Nelia Lugo RT (R) at 10:25 csmith 10:26 AM Opsite applied csmith 10:26 AM Plavix, Effient or Brilinta given No csmith 10:26 AM Delay to floor No csmith 10:28 AM Report given to Marlen MARQUES Pt will be taken to 2N Room #15. 10:28 csmith 10:29 AM Complications: None csmith 10:29 AM HR=70 bpm, UCUU=134/57 mmhg, SpO2=93 %, Resp=14 B/min 10:32 AM Patient out of room: 10:32 csmith Complications Complication None None Hemodynamics Post Procedure Information Blood Pressure: 105/57 mmHg Rhythm: Paced Post procedural instructions were given Site Checks Time Location Status Staff Sheath In? Note 10:25 AM Lt Groin No bleeding/hematoma Nelia Lugo RT (R) Pulses Time Site Pre-Procedure Post-Procedure Note 09/23/2017 9:49:00 AM Bilateral DP Doppler 10:25:00 AM Bilateral DP Doppler Updated by Chad Villagomez RN on 09/23/2017 10:32:11 AM electronically signed on 09/23/2017 10:32:34 AM with status of Final
[2017-09-23] MEDS ORDERED: Ondansetron 4 MG/2 ML VIAL ONE (11:05)
[2017-09-23] MEDS ORDERED: Ondansetron 4 MG/2 ML VIAL IVP PRN (11:06)
[2017-09-23] MEDS ORDERED: 0.9 % Sodium Chloride 250 ML ONE (11:10)
[2017-09-23 12:09] LABS: Albumin 2.8 g/dL (3.5-5.7); Bilirubin,Total 0.3 mg/dL (0.3-1.0); Calcium 7.6 mg/dL (8.6-10.3); Globulin 2.9 g/dL (2.4-3.5); Potassium 4.7 mEq/L (3.5-5.1); Total Protein 5.7 g/dL (6.4-8.9)
[2017-09-23] MEDS: Aspirin Enteric Coated 81 MG Tablet PO SCH (13:36)
[2017-09-23] MEDS: Cholecalciferol (D-3) 1,000 UNIT TABLET PO SCH ×2 (13:37→21:07)
[2017-09-23] MEDS: FLUoxetine HCl 10 MG CAPSULE PO SCH (13:37)
[2017-09-23 17:20] LABS: Basophils % 0.1 %; Hematocrit 27.8 % (35.3-44.9); Hemoglobin 8.7 g/dL (11.5-15.4); Immature Granulocytes % 0.7 % (0-4); Lymphocytes # 0.5 K/mcL (0.6-4.6); Lymphocytes % 4.9 %; Mean Corpuscular HGB Conc 31.3 g/dL (31.6-35.5); Mean Corpuscular Hemoglobin 27.7 pg (28.0-33.3); Mean Corpuscular Volume 88.5 fL (83.0-100.0); Mean Platelet Volume 10.7 fL (9.4-12.4); Monocytes # 0.5 K/mcL (0.0-1.3); Monocytes % 4.1 %; Neutrophils # 9.9 K/mcL (1.6-8.9); Platelet Count 304 K/mcL (140-400); Red Blood Count 3.14 M/mcL (3.82-4.97); Red Cell Distribution Width 15.6 % (11.5-14.5); Segmented Neutrophils % 90.2 %
[2017-09-23 17:29] LABS: Potassium 4.5 mEq/L (3.5-5.1)
[2017-09-23 17:30] LABS: Albumin 3.4 g/dL (3.5-5.7); Albumin/Globulin Ratio 1.5 (1.1-2.2); Bilirubin,Direct 0.2 mg/dL (0.0-0.2); Bilirubin,Indirect 0.3 mg/dL (0.0-1.2); Bilirubin,Total 0.5 mg/dL (0.3-1.0); Globulin 2.2 g/dL (2.4-3.5); Total Protein 5.6 g/dL (6.4-8.9)
[2017-09-23] MEDS: Magic Mouthwash 10 ML UD Cup PO SCH (18:55)
[2017-09-23] MEDS: Pantoprazole 40 MG VIAL IVP SCH (18:57)
[2017-09-23] MEDS: Melatonin 3 MG TABLET PO SCH (21:07)
[2017-09-24] MEDS: Ipratropium/Albuterol Neb 3 ML IH SCH ×7 (00:56→23:48)
[2017-09-24] MEDS: Heparin 25,000 UNIT/500 ML D5W 25,000 UNIT/500 ML BAG IVC SCH (03:29)
[2017-09-24 04:11] LABS: Basophils % 0.1 %; Hemoglobin 8.5 g/dL (11.5-15.4); Immature Granulocytes % 0.7 % (0-4); Lymphocytes # 0.3 K/mcL (0.6-4.6); Lymphocytes % 2.1 %; Mean Corpuscular HGB Conc 31.5 g/dL (31.6-35.5); Mean Corpuscular Hemoglobin 27.5 pg (28.0-33.3); Mean Corpuscular Volume 87.4 fL (83.0-100.0); Mean Platelet Volume 10.4 fL (9.4-12.4); Monocytes # 0.5 K/mcL (0.0-1.3); Monocytes % 3.7 %; Neutrophils # 12.5 K/mcL (1.6-8.9); Platelet Count 286 K/mcL (140-400); Red Blood Count 3.09 M/mcL (3.82-4.97); Red Cell Distribution Width 15.9 % (11.5-14.5); Segmented Neutrophils % 93.4 %
[2017-09-24 04:28] LABS: Potassium 4.1 mEq/L (3.5-5.1)
[2017-09-24] MEDS: 0.9 % Sodium Chloride 1,000 ML IVC SCH (06:09)
[2017-09-24] MEDS: Piperacillin/Tazobactam 3.375 GM in 0.9 % Sodium Chloride Mini Bag 100 ML IVPB SCH ×2 (06:10→17:59)
[2017-09-24] MEDS: Pantoprazole 40 MG VIAL IVP SCH ×2 (06:10→17:59)
[2017-09-24] MEDS: Magic Mouthwash 10 ML UD Cup PO SCH ×3 (09:06→16:12)
[2017-09-24] MEDS: Hydrocortisone Sodium Succ 100 MG/2 ML VIAL IVP SCH ×2 (09:07→16:12)
[2017-09-24] MEDS: Aspirin Enteric Coated 81 MG Tablet PO SCH (13:11)
[2017-09-24] MEDS: FLUoxetine HCl 10 MG CAPSULE PO SCH (13:11)
[2017-09-24] MEDS: Cholecalciferol (D-3) 1,000 UNIT TABLET PO SCH ×2 (13:11→20:45)
--- NOTE | 2017-09-24 13:37 | Internal Med Progress Note ---
<Jorge Luis Hale - Last Filed: 09/24/17 15:10> Date of Encounter: 09/24/17 Time of Encounter: 13:34 - Assessment and plan (1) Third degree heart block Current Visit: Yes Status: Acute Assessment and plan: On temp pacemaker paced at 60. Current rate 59 plan for permanent pacemaker tomorrow. hold heparin in the morning. (2) Acute kidney injury Current Visit: Yes Status: Acute Assessment and plan: 2nd to decreased perfusion from hypotension secondary to third-degree AV block Also in setting of UTI. Patient given IV fluids we will discontinue as she is becoming fluid overloaded. Serum creatinine slightly improved this morning. BMP tomorrow morning. (3) Anemia Current Visit: Yes Status: Suspected Assessment and plan: Stable currently. Likely secondary to GI bleed. PPI BID Patient is on chronic steroids outpatient secondary to rheumatoid arthritis. Stool guaiac pending. cbc AM Qualifiers: Anemia type: other cause Other causes of anemia: acute posthemorrhagic Qualified Code(s): D62 - Acute posthemorrhagic anemia (4) DVT (deep venous thrombosis) Current Visit: Yes Status: Acute Assessment and plan: Right popliteal DVT Continue heparin drip. Qualifiers: DVT location: lower extremity Affected thrombotic vein of extremity: popliteal Chronicity: acute Laterality: right Qualified Code(s): I82.431 - Acute embolism and thrombosis of right popliteal vein (5) Hyperkalemia Current Visit: Yes Status: Resolved (6) Hyponatremia Current Visit: Yes Status: Acute Assessment and plan: Improving. Continue monitor. (7) Pulmonary embolism Current Visit: Yes Status: Acute Assessment and plan: VQ scan intermediate for PE. continue heparin gtt Qualifiers: Pulmonary embolism type: other Chronicity: acute Acute cor pulmonale presence: without acute cor pulmonale Qualified Code(s): I26.99 - Other pulmonary embolism without acute cor pulmonale (8) UTI (urinary tract infection) Current Visit: Yes Status: Acute Assessment and plan: G- darryl UTI on zosyn Qualifiers: Urinary tract infection type: acute cystitis Hematuria presence: without hematuria Qualified Code(s): N30.00 - Acute cystitis without hematuria - Subjective Interval history: Patient reports feeling weak. She denies headache, chest pain, palpitations. Shortness breath is stable. She denies abdominal pain. - Constitutional Vitals: Temp Pulse Resp BP Pulse Ox 98.4 F 72 15 121/68 97 09/24/17 11:45 09/24/17 11:45 09/24/17 11:45 09/24/17 11:45 09/24/17 11:45 General appearance: Present: cooperative, mild distress, A&O X 3, answers questions appropriately - Other Additional findings: General: weak, mild distress Heart: paced rhythm Lungs: Clear to auscultation bilaterally Abdomen: Soft nontender, nondistended positive bowel sounds Skin: warm and dry Extremities: B/l 2+ pedal edema Neuro: alert and oriented x3 Vascular: Pedal and radial pulses 2 out of 4 Internal Medicine: Result - Labs CBC & Chem 7: 09/24/17 03:51 09/24/17 03:51 Labs: Short CBC 09/23/17 09/24/17 Range/Units 16:57 03:51 WBC 11.0 13.4 H (4.3-11.1) K/mcL Hgb 8.7 L 8.5 L (11.5-15.4) g/dL Hct 27.8 L 27.0 L (35.3-44.9) % Plt Count 304 286 (140-400) K/mcL Neutrophils # 9.9 H 12.5 H (1.6-8.9) K/mcL BMP 09/23/17 09/24/17 16:57 03:51 Sodium 130 L 131 L Potassium 4.5 4.1 Chloride 99 98 Carbon Dioxide 19 L 19 L BUN 76 H 82 H Creatinine 2.41 H 2.30 H Glucose 104 126 H Calcium 8.0 L 8.0 L Liver Function 09/23/17 Range/Units 16:57 Total Bilirubin 0.5 (0.3-1.0) mg/dL Direct Bilirubin 0.2 (0.0-0.2) mg/dL AST 58 H (13-39) Units/L ALT 43 (7-52) Units/L Alkaline Phosphatase 59 (34-104) Units/L Albumin 3.4 L (3.5-5.7) g/dL - ABG Interpretation ABG results: ABG ABG pH 7.41 pH Units (7.32-7.45) 09/22/17 14:10 ABG pCO2 27 mmHg (35-45) L 09/22/17 14:10 ABG pO2 66 mmHg (85-104) L 09/22/17 14:10 ABG O2 Saturation 94 % (95-98) L 09/22/17 14:10 PT/INR, D-dimer PT 11.6 Seconds (9.4-12.1) 09/21/17 11:13 Consult Discharge Plan - Plan Referrals: Haydee Blue, [Primary Care Provider] - 10/04/17 1:00 pm <Cam Tenorio - Last Filed: 09/24/17 17:58> Date of Encounter: 09/24/17 - Assessment and plan (1) Pulmonary embolism Current Visit: Yes Status: Acute Qualifiers: Pulmonary embolism type: other Chronicity: acute Acute cor pulmonale presence: without acute cor pulmonale Qualified Code(s): I26.99 - Other pulmonary embolism without acute cor pulmonale (2) DVT (deep venous thrombosis) Current Visit: Yes Status: Acute Qualifiers: DVT location: lower extremity Affected thrombotic vein of extremity: popliteal Chronicity: acute Laterality: right Qualified Code(s): I82.431 - Acute embolism and thrombosis of right popliteal vein (3) Third degree heart block Current Visit: Yes Status: Acute (4) Hyponatremia Current Visit: Yes Status: Acute (5) Acute renal failure Current Visit: Yes Status: Suspected Qualifiers: Acute renal failure type: with acute tubular necrosis Qualified Code(s): N17.0 - Acute kidney failure with tubular necrosis (6) Anemia Current Visit: Yes Status: Suspected Qualifiers: Anemia type: other cause Other causes of anemia: acute posthemorrhagic Qualified Code(s): D62 - Acute posthemorrhagic anemia (7) PAD (peripheral artery disease) Current Visit: Yes Status: Chronic - Constitutional Vitals: Temp Pulse Resp BP Pulse Ox 98.4 F 72 16 121/68 97 09/24/17 11:45 09/24/17 11:45 09/24/17 16:11 09/24/17 11:45 09/24/17 16:11 Internal Medicine: Result - Labs CBC & Chem 7: 09/24/17 03:51 09/24/17 03:51 Labs: Short CBC 09/24/17 Range/Units 03:51 WBC 13.4 H (4.3-11.1) K/mcL Hgb 8.5 L (11.5-15.4) g/dL Hct 27.0 L (35.3-44.9) % Plt Count 286 (140-400) K/mcL Neutrophils # 12.5 H (1.6-8.9) K/mcL BMP 09/24/17 03:51 Sodium 131 L Potassium 4.1 Chloride 98 Carbon Dioxide 19 L BUN 82 H Creatinine 2.30 H Glucose 126 H Calcium 8.0 L - ABG Interpretation ABG results: ABG ABG pH 7.41 pH Units (7.32-7.45) 09/22/17 14:10 ABG pCO2 27 mmHg (35-45) L 09/22/17 14:10 ABG pO2 66 mmHg (85-104) L 09/22/17 14:10 ABG O2 Saturation 94 % (95-98) L 09/22/17 14:10 PT/INR, D-dimer PT 11.6 Seconds (9.4-12.1) 09/21/17 11:13 - Attending Attestation I examined this patient and my medical decision-making was reviewed with the Resident Physician on 09/24/17. I agree with the documented findings, disposition and treatment plan as described except to the extent set forth below. Ms Boyer is currently admitted for DVT/PE and CHB. She remains high risk due to potential for worsening clinical and cardiac status. She has a temporary pacer in place. Ms Boyer is more alert and oriented today. She has a temporary pacer in place which is capturing well. Rate is set at 60. She is to have PPM tomorrow after heparin has been held in the morning. She is having a moist cough. No fever or chills. Urine is positive. Exam alert Comfortable Mucus membranes dry Heart reg Moist cough noted No edema I/P 1. CHB 2. UTI 3. DVT/PE Further diagnoses and plan as above.
--- NOTE | 2017-09-24 15:50 | Electrophysiology Consult Note ---
<Wilberto Alonso - Last Filed: 09/24/17 15:42> Date of Encounter: 09/24/17 Time of Encounter: 15:42 Assessment and Plan (1) High-grade atrioventricular block Current Visit: Yes Status: Acute EKG reviewed with Dr. Nicolas. Noted to have bradycardia, underlying rhythm with high degree AV block verses blocked atrial tachycardia. Telemetry shows ventricular pacing. Rhythm strips showing possible atrial flutter reviewed. Likely artifact. Turn down TV pacemaker to 60 BPM. Will see if PPM can be weaned off. Appears to have CHB as underlying rhythm currently. TTE shows EF 50-55%. Mild troponin elevation noted, secondary to PE. Noted to have hyperkalemia in the setting of JULISA. Hyperkalemia resolved and heart rhythm did not improve. Worsening kidney function likely secondary to high grade AV block. WIll likely require PPM placement tomorrow. Holding heparin gtt 4 hours prior to procedure recommended. Discussed with primary team. Okay to hold heparin from medical standpoint. Orders placed. Restart after PPM placement for probable PE. Indication and procedure for PPM placement discussed with patient daughter who is medical POA. Agrees with plan. Discussion w patient/family: The assessment and plan as outlined above was discussed with the patient and/or family members who expressed understanding and agreement. All questions were answered. Thank you for involving us in the care of your patient. Please call with any questions. History of Present Illness Consult date: 09/24/17 Requesting physician: Jimbo Vega Consult reason: Complete Heart block. Chief complaint: SOB History of present illness: Ms. Boyer is a 82 year old female with past medical history of COPD and PAD s/ p femoral popliteal bypass 09/11/17 who presented with the c/o SOB. She was found to have probable PE on VG scan and DVT in the right leg and was started on heparin. Cardiology was consulted for bradycardia. She was found to have complete heart block. Due to hypotension, increasing lactic acidosis, and worsening kidney function she underwent emergent transvenous pacemaker placement. Electrophysiology consult to evaluate for permanent pacemaker placement. On my exam patient is drowsy. She awakens and follows commands and answers yes and no before falling back asleep. Family states she became increasingly confused from sunday to sunday. She denies chest pain or SOB. Denies current dizziness. She was noted to have mild troponin elevation and elevated BNP secondary to PE per cardiology team. TTE completed showed preserved EF. Past Med Surg Social Fam HX - Past Medical History Source: old records reviewed, obtained from family Medical history: arthritis, COPD, hyperlipidemia, peripheral artery disease Psychiatric history: no psych history - Past Surgical History Surgical History: appendectomy, other, vascular surgery - Social History Smoking Status: Former smoker Smokeless Tobacco Status: No Alcohol use: none Drug use: none - Family History Daughter Living Status: Still Living Hx Family Cardiac Disorders: No Hx Family Respiratory Disorders: No Hx Family Cancer: No Hx Family GI Disorders: No Hx Family Endocrine Disorder: No Hx Family Neuromuscular Disorders: No Hx Family Neurologic Disorders: No Hx Family HEENT Disorders: No Hx Family Autoimmune Disorders: Yes (Rhuemitoid Arthritis) Medications and Allergies Cholecalciferol (Vitamin D3) [Vitamin D3] 1,000 unit PO BID 09/18/15 [History] FLUoxetine HCl [Prozac] 10 mg PO QAM 08/04/16 [History] Budesonide/Formoterol 160/4.5 [Symbicort 160/4.5] 2 puff IH BIDR 08/11/16 [ History] Docusate [Colace] 100 mg PO BID 10/30/16 [History] Multivitamin [One Daily Essential] 1 each PO DAILY 10/30/16 [History] Oxygen 2 l NS AD 10/30/16 [History] Naproxen [Naprosyn] 500 mg PO Q12H PRN 04/11/17 [History] Tiotropium Brothers [Spiriva Respimat] 4 gm IH DAILY 04/11/17 [History] predniSONE [PredniSONE] 10 mg PO DAILY 04/11/17 [History] Aspirin [Lo-Dose Aspirin EC] 81 mg PO DAILY 08/31/17 [History] Albuterol Sulfate [Albuterol Inhaler] 2 puff IH Q4HR PRN 09/11/17 [History] Calcium Carbonate [Calcium] 500 mg PO DAILY 09/11/17 [History] Clopidogrel Bisulfate [Plavix] 75 mg PO DAILY #30 tablet 09/12/17 [Rx] HYDROcodone/Acet 5/325 mg [Patterson 5-325 mg] 1 tab PO Q6HR PRN 10 Days #14 tablet 09/12/17 [Rx] 3 Allergy/AdvReac Type Severity Reaction Status Date / Time No Known Allergies Allergy Verified 09/11/17 06:35 All Systems Review: The remainder of the systems were reviewed and are negative Physical Examination Vital Signs, Last 4 Hours Temp Pulse Resp BP Pulse Ox 09/24/17 11:45 98.4 F 72 15 121/68 97 General: Other (Drowsy, awakens to name) HEENT: Atraumatic, Normocephaly, Mucus Membranes Moist Neck: No JVD, Normal carotid pulses Cardiac: Reg Rate and Rhythm, Normal S1 and S2, No Murmur, Other (TV pacer intact. Paced on telemetry. ) Lungs: Normal Breath Sounds, No Wheeze, Rales, Rhonchi Neuro: Alert and responsive, No focal deficits noted Abdomen: Soft, Non-Tender Skin: No rashes noted on visualized skin Musculoskeletal: No Chest Wall Tenderness Extremities: No Clubbing, No Cyanosis, Normal Pulses, Other (Edema and redness noted in RLE. Incision on inner calf is well approximated. ) Results 09/24/17 03:51 09/24/17 03:51 Lab Results 09/23/17 09/23/17 09/23/17 16:57 16:57 16:57 WBC 11.0 Hgb 8.7 L Hct 27.8 L Plt Count 304 APTT Sodium 130 L Potassium 4.5 Chloride 99 Carbon Dioxide 19 L BUN 76 H Creatinine 2.41 H Glucose 104 Calcium 8.0 L Total Bilirubin 0.5 AST 58 H ALT 43 Alkaline Phosphatase 59 09/24/17 09/24/17 09/24/17 03:51 03:51 03:51 WBC 13.4 H Hgb 8.5 L Hct 27.0 L Plt Count 286 APTT 36.6 H Sodium 131 L Potassium 4.1 Chloride 98 Carbon Dioxide 19 L BUN 82 H Creatinine 2.30 H Glucose 126 H Calcium 8.0 L Total Bilirubin AST ALT Alkaline Phosphatase 09/24/17 13:38 WBC Hgb Hct Plt Count APTT 71.6 H D Sodium Potassium Chloride Carbon Dioxide BUN Creatinine Glucose Calcium Total Bilirubin AST ALT Alkaline Phosphatase - Imaging and Cardiology Echo: report reviewed - EKG Interpretation EKG results cardiology: personally reviewed Consult Discharge Plan - Plan Referrals: Haydee Blue DO [Primary Care Provider] - 10/04/17 1:00 pm <Seven Nicolas - Last Filed: 09/25/17 13:31> Date of Encounter: 09/25/17 - Attending Attestation I have personally performed a face to face evaluation on this patient. I have reviewed and agree with the care plan. History and Exam by me shows: High grade AV block, intermittent AFL. Temporary pacer placed. Recommend permanent pacer. Assessment and Plan Discussion w patient/family: The assessment and plan as outlined above was discussed with the patient and/or family members who expressed understanding and agreement. All questions were answered. Thank you for involving us in the care of your patient. Please call with any questions. History of Present Illness History of present illness: Ms. Boyer is a 82 year old female All Systems Review: The remainder of the systems were reviewed and are negative Physical Examination Vital Signs, Last 4 Hours Resp Pulse Ox 09/25/17 11:41 18 99 Results 09/25/17 01:06 09/25/17 01:06 Lab Results 09/24/17 09/25/17 09/25/17 13:38 01:06 01:06 WBC 9.7 Hgb 8.2 L Hct 26.1 L Plt Count 267 APTT 71.6 H D Sodium 135 L Potassium 3.5 Chloride 102 Carbon Dioxide 20 L BUN 81 H Creatinine 1.98 H Glucose 168 H Calcium 7.8 L 09/25/17 01:06 WBC Hgb Hct Plt Count APTT 48.4 H Sodium Potassium Chloride Carbon Dioxide BUN Creatinine Glucose Calcium
[2017-09-24] MEDS: Furosemide 20 MG/2 ML VIAL IVP SCH (16:12)
[2017-09-24] MEDS: Melatonin 3 MG TABLET PO SCH (20:44)
[2017-09-25] MEDS: Hydrocortisone Sodium Succ 100 MG/2 ML VIAL IVP SCH ×4 (00:33→23:19)
[2017-09-25 01:51] LABS: Hematocrit 26.1 % (35.3-44.9); Hemoglobin 8.2 g/dL (11.5-15.4); Immature Granulocytes % 0.8 % (0-4); Lymphocytes # 0.4 K/mcL (0.6-4.6); Mean Corpuscular HGB Conc 31.4 g/dL (31.6-35.5); Mean Corpuscular Hemoglobin 27.7 pg (28.0-33.3); Mean Corpuscular Volume 88.2 fL (83.0-100.0); Mean Platelet Volume 10.4 fL (9.4-12.4); Monocytes # 0.5 K/mcL (0.0-1.3); Monocytes % 5.4 %; Neutrophils # 8.7 K/mcL (1.6-8.9); Platelet Count 267 K/mcL (140-400); Red Blood Count 2.96 M/mcL (3.82-4.97); Red Cell Distribution Width 16.3 % (11.5-14.5); Segmented Neutrophils % 89.8 %
[2017-09-25 02:07] LABS: Calcium 7.8 mg/dL (8.6-10.3); Potassium 3.5 mEq/L (3.5-5.1)
[2017-09-25] MEDS: *HR* Heparin 5,000 UNIT/ML VIAL IVP PRN (02:44)
[2017-09-25] MEDS: Ipratropium/Albuterol Neb 3 ML IH SCH ×6 (04:33→23:42)
[2017-09-25] MEDS: Heparin 25,000 UNIT/500 ML D5W 25,000 UNIT/500 ML BAG IVC SCH ×2 (06:23→23:27)
[2017-09-25] MEDS: Pantoprazole 40 MG VIAL IVP SCH ×2 (06:23→18:23)
[2017-09-25] MEDS: Piperacillin/Tazobactam 3.375 GM in 0.9 % Sodium Chloride Mini Bag 100 ML IVPB SCH (06:24)
--- NOTE | 2017-09-25 07:02 | Electrocardiograph Report ---
[place] [id number] Test Date: 2017-09-22 Pat Name: Tiana Boyer Department: 110 Room: 2N15 Gender: F Radio Producer: REBECCA : 1935 Requested By: John Floyd Order Number: [id number] Reading MD: Jimbo Vega MD Measurements Intervals [place] Rate: 42 P: [place]: 0 QRS: 30 QRSD: 94 T: 40 QT: 542 QTc: 485 Interpretive Statements SINUS MECHANISM WITH COMPLETE HEART BLOCK AND JUNCTIONAL ESCAPE RHYTHM PROLONGED QT INTERVAL Electronically Signed On 09-25-2017 7:00:44 EDT by Jimbo Vega MD
--- NOTE | 2017-09-25 07:28 | Electrocardiograph Report ---
[place] [address] Test Date: 2017-09-23 Pat Name: Tiana Boyer Department: 110 Room: 2N15 Gender: F Court Interpreter: REBECCA : 1935 Requested By: Cam Tenorio Order Number: [id number] Reading MD: Jimbo Vega MD Measurements Intervals [place] Rate: 46 P: [place]: 0 QRS: 57 QRSD: 93 T: 67 QT: 596 QTc: 557 Interpretive Statements SINUS RHYTHM WITH COMPLETE HEART BLOCK Electronically Signed On 09-25-2017 7:26:37 EDT by Jimbo Vega MD
[2017-09-25] MEDS: FLUoxetine HCl 10 MG CAPSULE PO SCH (07:49)
[2017-09-25] MEDS: Furosemide 20 MG/2 ML VIAL IVP SCH (07:49)
[2017-09-25] MEDS: Cholecalciferol (D-3) 1,000 UNIT TABLET PO SCH ×2 (07:49→20:27)
[2017-09-25] MEDS: Aspirin Enteric Coated 81 MG Tablet PO SCH (07:49)
[2017-09-25] MEDS: Magic Mouthwash 10 ML UD Cup PO SCH ×3 (07:49→18:23)
[2017-09-25] MEDS ORDERED: CeFAZolin Syr 2,000MG/20 ML 2,000 MG/20 ML SYRINGE IVPB ONE (09:25)
--- NOTE | 2017-09-25 09:25 | Event Note ---
Date of Encounter: 09/25/17 Time of Encounter: 09:23 - Cardiology Event Note Planning for PPM today. Heparin on hold since 0800 this morning. Restart after procedure. Patient is more alert today. Kidney function improving. Denies questions.
--- NOTE | 2017-09-25 10:06 | Internal Med Progress Note ---
<Jorge Luis Hale - Last Filed: 09/25/17 10:04> Date of Encounter: 09/25/17 Time of Encounter: 10:04 - Assessment and plan (1) Third degree heart block Current Visit: Yes Status: Acute Assessment and plan: On temp pacemaker paced at 60. Current rate 59 plan for permanent pacemaker today heparin on hold restart after procedure (2) Acute kidney injury Current Visit: Yes Status: Acute Assessment and plan: 2nd to decreased perfusion from hypotension secondary to third-degree AV block Also in setting of UTI. improving BMP tomorrow morning. strict I/Os avoid nephrotoxic agents. (3) Anemia Current Visit: Yes Status: Suspected Assessment and plan: Stable currently. Likely secondary to GI bleed. PPI BID Patient is on chronic steroids outpatient secondary to rheumatoid arthritis. Patient is also on anticoagulation secondary to DVT and suspected PE Stool guaiac pending. Discussed with family that if hemoglobin stable patient has option of obtaining GI evaluation outpatient. Patient might not be a candidate for GI procedure at this moment. Qualifiers: Anemia type: other cause Other causes of anemia: acute posthemorrhagic Qualified Code(s): D62 - Acute posthemorrhagic anemia (4) DVT (deep venous thrombosis) Current Visit: Yes Status: Acute Assessment and plan: Right popliteal DVT Continue heparin drip. Discussed with family the patient will be to be transitioned from heparin drip to by mouth anticoagulation. Discussed Coumadin, NOAC, IVC filter. Family reports that patient's sister and brother both have history of blood clots and have both been placed IVC filter. Qualifiers: DVT location: lower extremity Affected thrombotic vein of extremity: popliteal Chronicity: acute Laterality: right Qualified Code(s): I82.431 - Acute embolism and thrombosis of right popliteal vein (5) Hyponatremia Current Visit: Yes Status: Acute Assessment and plan: Improving. Continue monitor. (6) Pulmonary embolism Current Visit: Yes Status: Acute Assessment and plan: VQ scan intermediate for PE. continue heparin gtt Plan as above. Qualifiers: Pulmonary embolism type: other Chronicity: acute Acute cor pulmonale presence: without acute cor pulmonale Qualified Code(s): I26.99 - Other pulmonary embolism without acute cor pulmonale (7) UTI (urinary tract infection) Current Visit: Yes Status: Acute Assessment and plan: G- darryl UTI Transition to amoxicillin Qualifiers: Urinary tract infection type: acute cystitis Hematuria presence: without hematuria Qualified Code(s): N30.00 - Acute cystitis without hematuria (8) PAD (peripheral artery disease) Current Visit: Yes Status: Chronic Assessment and plan: s/p recent revascularizaion of LLE Continue aspirin and Plavix. - Subjective Interval history: Patient is well rested this morning. She has no complaints. There are no acute events overnight. She denies headache, blurry vision, cough, shortness of breath, palpitations, chest pain, abdominal pain. She continues to have lower extremity swelling. - Constitutional Vitals: Temp Pulse Resp BP Pulse Ox 97.8 F 59 18 131/68 99 09/25/17 07:20 09/25/17 07:20 09/25/17 07:45 09/25/17 07:20 09/25/17 07:45 General appearance: Present: cooperative, mild distress, A&O X 3, answers questions appropriately - Other Additional findings: General: weak, mild distress Heart: paced rhythm Lungs: Clear to auscultation bilaterally Abdomen: Soft nontender, nondistended positive bowel sounds Skin: warm and dry. Left groin temp pace maker no evidence of infection, absent discharge Extremities: B/l 2+ pedal edema Neuro: alert and oriented x3 Vascular: Pedal and radial pulses 2 out of 4 Internal Medicine: Result - Labs CBC & Chem 7: 09/25/17 01:06 09/25/17 01:06 Labs: Short CBC 09/25/17 Range/Units 01:06 WBC 9.7 (4.3-11.1) K/mcL Hgb 8.2 L (11.5-15.4) g/dL Hct 26.1 L (35.3-44.9) % Plt Count 267 (140-400) K/mcL Neutrophils # 8.7 (1.6-8.9) K/mcL BMP 09/25/17 01:06 Sodium 135 L Potassium 3.5 Chloride 102 Carbon Dioxide 20 L BUN 81 H Creatinine 1.98 H Glucose 168 H Calcium 7.8 L - ABG Interpretation ABG results: ABG ABG pH 7.41 pH Units (7.32-7.45) 09/22/17 14:10 ABG pCO2 27 mmHg (35-45) L 09/22/17 14:10 ABG pO2 66 mmHg (85-104) L 09/22/17 14:10 ABG O2 Saturation 94 % (95-98) L 09/22/17 14:10 PT/INR, D-dimer PT 11.6 Seconds (9.4-12.1) 09/21/17 11:13 Consult Discharge Plan - Plan Referrals: Haydee Blue DO [Primary Care Provider] - 10/04/17 1:00 pm <Cuba Perez - Last Filed: 09/25/17 16:27> Date of Encounter: 09/25/17 - Constitutional Vitals: Temp Pulse Resp BP Pulse Ox 97.8 F 59 18 131/68 99 09/25/17 07:20 09/25/17 07:20 09/25/17 15:52 09/25/17 07:20 09/25/17 15:52 Internal Medicine: Result - Labs CBC & Chem 7: 09/25/17 01:06 09/25/17 01:06 Labs: Short CBC 09/25/17 Range/Units 01:06 WBC 9.7 (4.3-11.1) K/mcL Hgb 8.2 L (11.5-15.4) g/dL Hct 26.1 L (35.3-44.9) % Plt Count 267 (140-400) K/mcL Neutrophils # 8.7 (1.6-8.9) K/mcL BMP 09/25/17 01:06 Sodium 135 L Potassium 3.5 Chloride 102 Carbon Dioxide 20 L BUN 81 H Creatinine 1.98 H Glucose 168 H Calcium 7.8 L - ABG Interpretation ABG results: ABG ABG pH 7.41 pH Units (7.32-7.45) 09/22/17 14:10 ABG pCO2 27 mmHg (35-45) L 09/22/17 14:10 ABG pO2 66 mmHg (85-104) L 09/22/17 14:10 ABG O2 Saturation 94 % (95-98) L 09/22/17 14:10 PT/INR, D-dimer PT 11.6 Seconds (9.4-12.1) 09/21/17 11:13 - Impressions Impressions Chest X-Ray 09/25/17 13:33 IMPRESSION: Interval placement of a cardiac pacer. No pneumothorax. Slightly prominent right hilum when compared to the prior exam which may be related to technique. An underlying infiltrate in this region cannot be entirely excluded. D/ / 09/25/2017 14:51:40 Oma Tillman MD / isreal Interpreting Provider: Oma Tillman MD - Attending Attestation I performed a [id number] diagnostic evaluation of this patient and my medical decision-making was reviewed with the Resident Physician, Dr Jorge Luis Hale. I agree with the documented findings, disposition and treatment plan as described except to the extent set forth below. Patient reports no chest pain or shortness of breath. The next confusion and lightheadedness. Heart is regular. Lungs are clear. Abdomen is soft. There is a left sided femoral catheter connected to a temporary pacemaker. Telemetry review shows paced rhythm with 100% capture, normal rate. Plan: Permanent pacemaker placement later this afternoon. Resume heparin drip after pacemaker placement. Patient is at high risk due to cardiovascular studies with IV contrast and IV heparin. Cuba Perez MD
[2017-09-25] MEDS ORDERED: 0.9 % Sodium Chloride 500 ML ONE (11:44)
[2017-09-25] MEDS ORDERED: Water for inj. (sterile) 10 ML IV ONE (11:44)
[2017-09-25] MEDS ORDERED: 0.9 % Sodium Chloride 1,000 ML ONE (11:55)
--- NOTE | 2017-09-25 12:23 | Pre-Sedation Evaluation ---
Pre-sedation evaluation - Pre-sedation checklist Date of procedure: 09/25/17 Procedure: Permanent pacer placement Recent Vitals: Last Vital Signs Temp 97.8 F 09/25/17 07:20 Pulse 59 09/25/17 07:20 Resp 18 09/25/17 11:41 BP 131/68 09/25/17 07:20 Pulse Ox 99 09/25/17 11:41 H&P (including ROS) documented in medical record: Yes Previous reaction to sedatives/anesthetics: No Dietary Status: NPO after Midnight Airway Assessment: Patient can open mouth completely, TMJ function normal, Micrognathia (under-bite, receding chin) absent Dentition: poor dentition, dentures removed Possible difficult airway: No ASA Classification *see protocol: CLASS II-Mild systemic disease Plan of Care: Pt appropriate candidate for procedure/moderate/conscious sedation , Risks/benefits of procedure/sedation discussed w/ patient/family
[2017-09-25] MEDS: Amoxicillin 500 MG CAPSULE PO SCH ×2 (12:36→20:27)
[2017-09-25] MEDS ORDERED: *HR* Midazolam HCl 2 MG/2 ML VIAL ONE (12:38)
[2017-09-25] MEDS ORDERED: *HR* FentaNYL (PF) 100 MCG/2 ML VIAL ONE (12:47)
[2017-09-25] MEDS: ceFAZolin 2,000 MG in D5% in Water 100 ML IVPB SCH ×2 (18:23→23:22)
[2017-09-25] MEDS: Melatonin 3 MG TABLET PO SCH (20:27)
[2017-09-25] MEDS ORDERED: *HR* Heparin 5,000 UNIT/ML VIAL IVP PRN ×2 (23:05)
[2017-09-26] MEDS: Ipratropium/Albuterol Neb 3 ML IH SCH ×5 (04:27→20:21)
[2017-09-26 04:31] LABS: Basophils % 0.1 %; Hematocrit 27.1 % (35.3-44.9); Hemoglobin 8.6 g/dL (11.5-15.4); Immature Granulocytes % 0.6 % (0-4); Lymphocytes # 0.4 K/mcL (0.6-4.6); Lymphocytes % 3.8 %; Mean Corpuscular HGB Conc 31.7 g/dL (31.6-35.5); Mean Corpuscular Hemoglobin 27.8 pg (28.0-33.3); Mean Corpuscular Volume 87.7 fL (83.0-100.0); Mean Platelet Volume 10.6 fL (9.4-12.4); Monocytes # 0.6 K/mcL (0.0-1.3); Monocytes % 6.2 %; Neutrophils # 9.2 K/mcL (1.6-8.9); Platelet Count 282 K/mcL (140-400); Red Blood Count 3.09 M/mcL (3.82-4.97); Red Cell Distribution Width 16.3 % (11.5-14.5); Segmented Neutrophils % 89.3 %
[2017-09-26 04:39] LABS: Calcium 8.2 mg/dL (8.6-10.3); Potassium 3.3 mEq/L (3.5-5.1)
[2017-09-26] MEDS: Pantoprazole 40 MG VIAL IVP SCH (06:47)
[2017-09-26] MEDS: Aspirin Enteric Coated 81 MG Tablet PO SCH (07:47)
[2017-09-26] MEDS: Magic Mouthwash 10 ML UD Cup PO SCH ×3 (07:47→16:26)
[2017-09-26] MEDS: Hydrocortisone Sodium Succ 100 MG/2 ML VIAL IVP SCH (07:47)
[2017-09-26] MEDS: FLUoxetine HCl 10 MG CAPSULE PO SCH (07:47)
[2017-09-26] MEDS: Cholecalciferol (D-3) 1,000 UNIT TABLET PO SCH ×2 (07:47→21:13)
[2017-09-26] MEDS: Amoxicillin 500 MG CAPSULE PO SCH ×2 (07:48→21:12)
[2017-09-26] MEDS: Furosemide 20 MG/2 ML VIAL IVP SCH (07:48)
[2017-09-26] MEDS ORDERED: Potassium Chloride Elixir 20 MEQ/15 ML UDC PO ONE (08:26)
--- NOTE | 2017-09-26 08:36 | Electrophysiology ProgressNote ---
Date of Encounter: 09/26/17 Time of Encounter: 08:33 Assessment and Plan (1) High-grade atrioventricular block Current Visit: Yes Status: Acute S/p PPM for CHB and symptomatic bradycardia. TTE shows EF 50-55%. GWENDOLYN dressing saturated with old blood. Recommend dressing change. Keep clean dry dressing for 48 hours and then [employer]. Steri strips to remain intact. Discussed activity restriction and incision care with daughter. Device check completed. Dr. Nicolas will review. CXR shows no pnuemothorax. Noted to have increased bibasilar opacity and bilateral pleural effusion. Agree with lasix. Spo2 96% on 2L. Restarted on heparin gtt for PE. Out-pt f/u will be coordinated by [facility]. (2) Pulmonary embolism Current Visit: Yes Status: Acute Per cardiology: -Venous duplex positive for DVT. -VQ scan performed and noted intermediate probability for PE. -On heparin drip. - No RV strain seen on TTE. -Discussed IVC filter with interventionalist. No indication unless patient fails AC or is unable to tolerate AC. On heparin gtt. Noted to have anemia but is stable. - Discussed with primary team. Plan starting eliquis with PE dosing per primary team. Qualifiers: Pulmonary embolism type: other Chronicity: acute Acute cor pulmonale presence: without acute cor pulmonale Qualified Code(s): I26.99 - Other pulmonary embolism without acute cor pulmonale (3) Atrial flutter Current Visit: Yes Status: Acute Intermittent rate controlled atrial flutter. Start beta-irais. In regards to AC she will be started on eliquis for PE. Currently on heparin gtt. Qualifiers: Atrial flutter type: unspecified Qualified Code(s): I48.92 - Unspecified atrial flutter Discussion w patient/family: The assessment and plan as outlined above was discussed with the patient and/or family members who expressed understanding and agreement. All questions were answered. Thank you for involving us in the care of your patient. Please call with any questions. Subjective Principal diagnosis: Complete heart block Interval history: Ms. Boyer is s/p PPM placement 09/26/17. Objective Vital Signs, Last 4 Hours Temp Pulse Resp BP Pulse Ox 09/26/17 07:47 16 96 09/26/17 07:11 97.9 F 61 22 160/66 96 General: Conversant, No Apparent Distress HEENT: Atraumatic, Normocephaly, Mucus Membranes Moist Neck: No JVD, Normal carotid pulses Cardiac: Other (irregular, GWENDOLYN dressing saturated with old blood. ) Lungs: Other (Respirations easy. Diminished bases. ) Neuro: Alert and responsive Abdomen: Soft, Non-Tender Skin: No rashes noted on visualized skin Musculoskeletal: No Chest Wall Tenderness Extremities: No Clubbing, No Cyanosis, Normal Pulses, Other (Trace edema RLE. ) Results 09/26/17 03:26 09/26/17 03:26 Lab Results 09/25/17 09/26/17 09/26/17 20:42 03:26 03:26 WBC 10.3 Hgb 8.6 L Hct 27.1 L Plt Count 282 APTT 40.9 H Sodium 136 Potassium 3.3 L Chloride 104 Carbon Dioxide 22 L BUN 80 H Creatinine 1.90 H Glucose 184 H Calcium 8.2 L - EKG Interpretation EKG results cardiology: personally reviewed Consult Discharge Plan - Plan Referrals: Haydee Blue DO [Primary Care Provider] - 10/04/17 1:00 pm
[2017-09-26 09:11] LABS: Heparin anti-factor XA UFH 1.4 IU/mL (0.30-0.70)
--- NOTE | 2017-09-26 11:24 | Internal Med Progress Note ---
<Jorge Luis Hale - Last Filed: 09/26/17 11:22> Date of Encounter: 09/26/17 Time of Encounter: 11:22 - Assessment and plan (1) Pulmonary embolism Current Visit: Yes Status: Acute Assessment and plan: VQ scan intermediate for PE. continue heparin gtt plan to transition to eliquis Qualifiers: Pulmonary embolism type: other Chronicity: acute Acute cor pulmonale presence: without acute cor pulmonale Qualified Code(s): I26.99 - Other pulmonary embolism without acute cor pulmonale (2) DVT (deep venous thrombosis) Current Visit: Yes Status: Acute Assessment and plan: Right popliteal DVT Continue heparin drip. plan to transition to eliquis Qualifiers: DVT location: lower extremity Affected thrombotic vein of extremity: popliteal Chronicity: acute Laterality: right Qualified Code(s): I82.431 - Acute embolism and thrombosis of right popliteal vein (3) Acute kidney injury Current Visit: Yes Status: Acute Assessment and plan: 2nd to decreased perfusion from hypotension secondary to third-degree AV block Also in setting of UTI. improving BMP tomorrow morning. strict I/Os avoid nephrotoxic agents. (4) Anemia Current Visit: Yes Status: Suspected Assessment and plan: Stable currently. Likely secondary to GI bleed. PPI BID Patient is on chronic steroids outpatient secondary to rheumatoid arthritis. Patient is also on anticoagulation secondary to DVT and suspected PE Discussed with family that if hemoglobin stable patient has option of obtaining GI evaluation outpatient. Patient might not be a candidate for GI procedure at this moment. Qualifiers: Anemia type: other cause Other causes of anemia: acute posthemorrhagic Qualified Code(s): D62 - Acute posthemorrhagic anemia (5) Third degree heart block Current Visit: Yes Status: Resolved Assessment and plan: permanant pacemaker device checked by cardiology today and working well. (6) Hyponatremia Current Visit: Yes Status: Resolved Assessment and plan: resolved. (7) UTI (urinary tract infection) Current Visit: Yes Status: Acute Assessment and plan: G- darryl UTI continue amoxicillin Qualifiers: Urinary tract infection type: acute cystitis Hematuria presence: without hematuria Qualified Code(s): N30.00 - Acute cystitis without hematuria (8) PAD (peripheral artery disease) Current Visit: Yes Status: Chronic Assessment and plan: s/p recent revascularizaion of LLE Continue aspirin and Plavix. (9) Urinary retention Current Visit: Yes Status: Acute Assessment and plan: patient retaining urine after hamilton catheter removed hamilton reinserted follow up with urology outpatient for evaluation. (10) Physical deconditioning Current Visit: Yes Status: Acute Assessment and plan: patient in bed for 5 days will get Pt/Ot consult (11) Atrial fibrillation Current Visit: Yes Status: Acute Assessment and plan: started on b-irais will be anticoagulated with eliquis Qualifiers: Atrial fibrillation type: chronic Qualified Code(s): I48.2 - Chronic atrial fibrillation (12) Hypertension Current Visit: Yes Status: Acute Assessment and plan: elevated BP at 160/66 started on metoprolol today follow up with cardiology outpatient for further management. Qualifiers: Hypertension type: essential hypertension Qualified Code(s): I10 - Essential (primary) hypertension - Subjective Interval history: Patient is well rested this morning. She has no complaints. There are no acute events overnight. She denies headache, blurry vision, cough, shortness of breath, palpitations, chest pain, abdominal pain. LE swelling improved. - Constitutional Vitals: Temp Pulse Resp BP Pulse Ox 97.9 F 61 16 160/66 96 09/26/17 07:11 09/26/17 07:11 09/26/17 07:47 09/26/17 07:11 09/26/17 07:47 General appearance: Present: cooperative, mild distress, A&O X 3, answers questions appropriately - Other Additional findings: General: weak, calm no distress Heart: paced rhythm with a flutter Lungs: Clear to auscultation bilaterally, diminished Abdomen: Soft nontender, nondistended positive bowel sounds Skin: warm and dry. left groin intact Extremities: B/l left 1+ and right 2+ edema Neuro: alert and oriented x3 Vascular: Pedal and radial pulses 2 out of 4 Internal Medicine: Result - Labs CBC & Chem 7: 09/26/17 03:26 09/26/17 03:26 Labs: Short CBC 09/26/17 Range/Units 03:26 WBC 10.3 (4.3-11.1) K/mcL Hgb 8.6 L (11.5-15.4) g/dL Hct 27.1 L (35.3-44.9) % Plt Count 282 (140-400) K/mcL Neutrophils # 9.2 H (1.6-8.9) K/mcL BMP 09/26/17 03:26 Sodium 136 Potassium 3.3 L Chloride 104 Carbon Dioxide 22 L BUN 80 H Creatinine 1.90 H Glucose 184 H Calcium 8.2 L - ABG Interpretation ABG results: ABG ABG pH 7.41 pH Units (7.32-7.45) 09/22/17 14:10 ABG pCO2 27 mmHg (35-45) L 09/22/17 14:10 ABG pO2 66 mmHg (85-104) L 09/22/17 14:10 ABG O2 Saturation 94 % (95-98) L 09/22/17 14:10 PT/INR, D-dimer PT 11.6 Seconds (9.4-12.1) 09/21/17 11:13 - Impressions Impressions Chest X-Ray 09/25/17 13:33 IMPRESSION: Interval placement of a cardiac pacer. No pneumothorax. Slightly prominent right hilum when compared to the prior exam which may be related to technique. An underlying infiltrate in this region cannot be entirely excluded. D/ / 09/25/2017 14:51:40 Oma Tillman MD / [email or web address] Interpreting Provider: Oma Tillman MD Chest X-Ray 09/26/17 06:00 IMPRESSION: 1. Unchanged appearance of the left chest wall pacer. 2. Interval worsening of bibasilar opacities and bilateral effusions. D/ / 09/26/2017 10:33:37 Aretha Melissa MD / [email or web address] Interpreting Provider: Aretha Melissa MD Consult Discharge Plan - Plan Referrals: Haydee Blue DO [Primary Care Provider] - 10/04/17 1:00 pm <Cuba Perez - Last Filed: 09/26/17 15:48> Date of Encounter: 09/26/17 - Constitutional Vitals: Temp Pulse Resp BP Pulse Ox 97.4 F L 60 16 173/74 96 09/26/17 11:29 09/26/17 11:29 09/26/17 12:36 09/26/17 11:29 09/26/17 12:36 Internal Medicine: Result - Labs CBC & Chem 7: 09/26/17 03:26 09/26/17 03:26 Labs: Short CBC 09/26/17 Range/Units 03: WBC 10.3 (4.3-11.1) K/mcL Hgb 8.6 L (11.5-15.4) g/dL Hct 27.1 L (35.3-44.9) % Plt Count 282 (140-400) K/mcL Neutrophils # 9.2 H (1.6-8.9) K/mcL BMP 09/26/17 03:26 Sodium 136 Potassium 3.3 L Chloride 104 Carbon Dioxide 22 L BUN 80 H Creatinine 1.90 H Glucose 184 H Calcium 8.2 L - ABG Interpretation ABG results: ABG ABG pH 7.41 pH Units (7.32-7.45) 09/22/17 14:10 ABG pCO2 27 mmHg (35-45) L 09/22/17 14:10 ABG pO2 66 mmHg (85-104) L 09/22/17 14:10 ABG O2 Saturation 94 % (95-98) L 09/22/17 14:10 PT/INR, D-dimer PT 11.6 Seconds (9.4-12.1) 09/21/17 11:13 - Impressions Impressions Chest X-Ray 09/26/17 06:00 IMPRESSION: 1. Unchanged appearance of the left chest wall pacer. 2. Interval worsening of bibasilar opacities and bilateral effusions. D/ / 09/26/2017 10:33:37 Aretha Melissa MD / [email or web address] Interpreting Provider: Aretha Melissa MD - Attending Attestation I performed a [id number] diagnostic evaluation of this patient and my medical decision-making was reviewed with the Resident Physician, Dr Jorge Luis Hale. I agree with the documented findings, disposition and treatment plan as described except to the extent set forth below. The patient's physical exam reveals no acute distress. Heart is regular with normal S1-S2. Lungs sounds are diminished. Plan: Stop heparin. Transition him to Eliquis 5 mg twice a day for DVT PE dosing. She will not need to start with a 10 mg twice a day because she already completed 5 days of IV heparin infusion per PE protocol. Cuba Perez MD
[2017-09-26] MEDS: Heparin 25,000 UNIT/500 ML D5W 25,000 UNIT/500 ML BAG IVC SCH (11:46)
[2017-09-26] MEDS: predniSONE 10 MG TABLET PO SCH (16:26)
[2017-09-26 16:36] LABS: Activated Partial Thrombo Time 162.2 Seconds (26.0-36.0)
[2017-09-26 16:59] LABS: Heparin anti-factor XA UFH 1.24 IU/mL (0.30-0.70)
[2017-09-26] MEDS: Apixaban 5 MG TABLET PO SCH (21:13)
[2017-09-26] MEDS: Melatonin 3 MG TABLET PO SCH (21:13)
[2017-09-27] MEDS: Ipratropium/Albuterol Neb 3 ML IH SCH ×5 (00:05→16:16)
[2017-09-27 04:55] LABS: Hematocrit 28.5 % (35.3-44.9); Hemoglobin 8.9 g/dL (11.5-15.4); Mean Corpuscular HGB Conc 31.2 g/dL (31.6-35.5); Mean Corpuscular Hemoglobin 27.7 pg (28.0-33.3); Mean Corpuscular Volume 88.8 fL (83.0-100.0); Mean Platelet Volume 10.3 fL (9.4-12.4); Platelet Count 316 K/mcL (140-400); Red Blood Count 3.21 M/mcL (3.82-4.97); Red Cell Distribution Width 16.2 % (11.5-14.5)
[2017-09-27 05:10] LABS: Calcium 8.4 mg/dL (8.6-10.3); Potassium 3.8 mEq/L (3.5-5.1)
[2017-09-27] MEDS: Magic Mouthwash 10 ML UD Cup PO SCH ×2 (08:35→11:16)
[2017-09-27] MEDS: Aspirin Enteric Coated 81 MG Tablet PO SCH (08:35)
[2017-09-27] MEDS: Cholecalciferol (D-3) 1,000 UNIT TABLET PO SCH (08:36)
[2017-09-27] MEDS: Apixaban 5 MG TABLET PO SCH (08:36)
[2017-09-27] MEDS: FLUoxetine HCl 10 MG CAPSULE PO SCH (08:36)
[2017-09-27] MEDS: Amoxicillin 500 MG CAPSULE PO SCH (08:36)
[2017-09-27] MEDS: predniSONE 10 MG TABLET PO SCH (08:36)
[2017-09-27] MEDS ORDERED: Furosemide 40 MG TABLET PO SCH (09:00)
--- NOTE | 2017-09-27 10:00 | Physician Discharge Referral ---
ExtendedCare Referral Info Transfer To: [facility] Provider in Charge: Dr. Perez Provider in Charge after Transfer: PCP Institutional Level of Care: Intermediate - Diagnosis (1) Third degree heart block Priority: Primary Status: Resolved (2) Pulmonary embolism Priority: Secondary Status: Acute (3) DVT (deep venous thrombosis) Priority: Secondary Status: Acute (4) Acute kidney injury Priority: Secondary Status: Acute (5) Anemia Priority: Secondary Status: Suspected (6) Hyponatremia Priority: Secondary Status: Resolved (7) UTI (urinary tract infection) Priority: Secondary Status: Acute (8) PAD (peripheral artery disease) Priority: Secondary Status: Chronic (9) Urinary retention Priority: Secondary Status: Acute (10) Physical deconditioning Priority: Secondary Status: Inactive (11) Atrial fibrillation Priority: Secondary Status: Acute (12) Hypertension Priority: Secondary Status: Acute Prognosis: Good Aware of Diagnosis: Patient, Family Aware of Prognosis: Patient, Family - Transfer Medications Home Medications: Cholecalciferol (Vitamin D3) [Vitamin D3] 1,000 unit PO BID 09/18/15 [History] FLUoxetine HCl [Prozac] 10 mg PO QAM 08/04/16 [History] Budesonide/Formoterol 160/4.5 [Symbicort 160/4.5] 2 puff IH BIDR 08/11/16 [ History] Docusate [Colace] 100 mg PO BID 10/30/16 [History] Multivitamin [One Daily Essential] 1 each PO DAILY 10/30/16 [History] Oxygen 2 l NS AD 10/30/16 [History] Tiotropium [place] [Spiriva Respimat] 4 gm IH DAILY 04/11/17 [History] predniSONE [PredniSONE] 10 mg PO DAILY 04/11/17 [History] Aspirin [Lo-Dose Aspirin EC] 81 mg PO DAILY 08/31/17 [History] Albuterol Sulfate [Albuterol Inhaler] 2 puff IH Q4HR PRN 09/11/17 [History] Calcium Carbonate [Calcium] 500 mg PO DAILY 09/11/17 [History] Clopidogrel Bisulfate [Plavix] 75 mg PO DAILY #30 tablet 09/12/17 [Rx] HYDROcodone/Acet 5/325 mg [[place] 5-325 mg] 1 tab PO Q6HR PRN 10 Days #14 tablet 09/12/17 [Rx] Amoxicillin [Amoxil] 500 mg PO BID #1 capsule 09/27/17 [Rx] Apixaban [Eliquis] 5 mg PO BID tablet 09/27/17 [Rx] DiphenhydraMINE [Benadryl] 25 mg PO HS capsule 09/27/17 [Rx] Furosemide [Lasix] 40 mg PO DAILY tablet 09/27/17 [Rx] HydrOXYzine 10 mg PO HS tablet 09/27/17 [Rx] Melatonin 1.5 mg PO HS tablet 09/27/17 [Rx] Metoprolol [Lopressor] 25 mg PO BID tablet 09/27/17 [Rx] Omeprazole [PriLOSEC] 40 mg PO BIDAC capsule. 09/27/17 [Rx] Allergies/Adverse Reactions: 3 Allergy/AdvReac Type Severity Reaction Status Date / Time No Known Allergies Allergy Verified 09/11/17 06:35 - Respiratory Orders Oxygen / L per min (3L) Smoking Cessation: Smoking cessation has been advised. For more information, call the [employer] Quit Line at 2-811-FSFW-NOW. - Lab Orders Lab Orders: CBC (10/04/2017) - Advance Directives Code Status: DNR-Arrest/Don't Intubate - Mobility Orders Chair, Ambulate (with assistance) - Rehabiliation Orders Rehab Potential: Good Rehab Orders: ROM Exercises, Evaluation for Physical Therapy, Evaluation for Occupational Therapy - Treatments Skin tear care topically daily PRN per policy - Diet Orders Cardiac CERTIFICATION: I certify that the transfer of the above named patient to an Extended Care Facility is necessary for the continuing treatment of the diagnosis listed. The above information is true and accurate reflection of patient's current condition. Confidential - Redisclosure prohibited without a patient's written consent.
--- NOTE | 2017-09-27 11:33 | Discharge Summary ---
Addendum entered and electronically signed by Jorge Luis Hale DO 15:05: Patient will need daily dressing changes for her pacemaker. She will also need acewrap bandages for her LE b/l changed daily. As per vascular surgery, patient can discontinue plavix. she will now be only on aspirin and eliquis. Original Note: <Jorge Luis Hale - Last Filed: 09/27/17 11:11> Orders not resulted at time of discharge: Pending orders 09/23/17 08:27 Fecal Hemoccult [Occult Blood,Stool] [BF] Routine 09/23/17 10:37 CL Insert Permanent Pacemaker [CL] Routine 09/23/17 11:32 Culture,Blood [BC] Stat 09/23/17 16:57 Culture,Blood,Additional [BC] Stat Date of Encounter: 09/27/17 Time of Encounter: 11:11 - Discharge Diagnosis (1) Third degree heart block Priority: Primary Status: Resolved (2) Pulmonary embolism Priority: Secondary Status: Acute Qualifiers: Pulmonary embolism type: other Chronicity: acute Acute cor pulmonale presence: without acute cor pulmonale Qualified Code(s): I26.99 - Other pulmonary embolism without acute cor pulmonale (3) DVT (deep venous thrombosis) Priority: Secondary Status: Acute Qualifiers: DVT location: lower extremity Affected thrombotic vein of extremity: popliteal Chronicity: acute Laterality: right Qualified Code(s): I82.431 - Acute embolism and thrombosis of right popliteal vein (4) Acute kidney injury Priority: Secondary Status: Acute (5) Anemia Priority: Secondary Status: Suspected Qualifiers: Anemia type: other cause Other causes of anemia: acute posthemorrhagic Qualified Code(s): D62 - Acute posthemorrhagic anemia (6) Hyponatremia Priority: Secondary Status: Resolved (7) UTI (urinary tract infection) Priority: Secondary Status: Acute Qualifiers: Urinary tract infection type: acute cystitis Hematuria presence: without hematuria Qualified Code(s): N30.00 - Acute cystitis without hematuria (8) PAD (peripheral artery disease) Priority: Secondary Status: Chronic (9) Urinary retention Priority: Secondary Status: Acute (10) Physical deconditioning Priority: Secondary Status: Inactive (11) Atrial fibrillation Priority: Secondary Status: Acute Qualifiers: Atrial fibrillation type: chronic Qualified Code(s): I48.2 - Chronic atrial fibrillation (12) Hypertension Priority: Secondary Status: Acute Qualifiers: Hypertension type: essential hypertension Qualified Code(s): I10 - Essential (primary) hypertension Hospital course: Ms. Boyer is a 82 year old female with history of arthritis, COPD, hyperlipidemia, peripheral artery disease presented with chief complaint of right lower extremity swelling and tenderness as well as shortness of breath. Patient had right femoral-popliteal bypass in August 2017 as well as right popliteal endarterectomy. On day of admission patient had shortness of breath that progressively worsened over the past few days. At home she uses 2 L of oxygen and this has increased to 3 L. Right lower extremity Doppler showed evidence of DVT and patient had a VQ scan which was intermediate probably for pulmonary embolism. Patient was started on heparin drip. She also had acute kidney injury and was started on IV fluids. Retroperitoneum ultrasound was unremarkable. Patient's Plavix and aspirin were continued for her peripheral artery disease. She was seen to have hyponatremia likely secondary to acute kidney injury which is treated with IV fluids. On second day of admission patient's EKG was shown to have third degree AV block and cardiology was consulted. She underwent echocardiogram which showed LVEF of 50-55% with normal right ventricular structure and function. Patient's fluids were discontinued due to concern of fluid overload. Patient also has a history of rheumatoid arthritis and takes prednisone therapy outpatient and therefore was started on stress dose steroids. She was also hyperkalemic and was given Kayexalate which has now resolved. On third day of admission patient became more lethargic, hypotensive, with worsening renal function and lactic acidosis. She had a urgent temporary pacemaker placed through the left femoral venous access. After placement patient's kidney function, hypertension, hyponatremia began to improve. On 09/25/17 patient had removal of temporary pacemaker and placement of permanent. Chest x-ray after pacemaker placement showed worsening bilateral effusions. Patient was started on Lasix for diuresis. This helped improve her fluid overload and sob. Patient also developed anemia during this visit and required administration of 1 unit of packed red blood cells. No source of bleeding was found. Due to her medical condition, and no evidence of active bleeding, she was not candidate for emergent GI procedure, and her hemoglobin after transfusion remained stable between 8 and 9. Patient also was found to have UTI secondary to Escherichia coli which was treated with IV antibiotics and then transitioned to amoxicillin by mouth for total 5 days. Since her vascular surgery patient has had urinary retention and Pardo catheter placed. She has followed up with urology for this. During this admission her Pardo catheter was removed and patient has been straight catheterized as she is still retaining urine. She will need a follow-up appointment with urology. Today patient denies chest pain, shortness of breath, nausea, vomiting, diarrhea. She is tolerating her diet. Her kidney function continues to improve and his serum creatinines 1.53. Her hemoglobin is stable at 8.9. Patient was transitioned to eliquis for anticoagulation for atrial flutter and DVT/PE. She was also started on metoprolol for underlying atrial flutter. She will need to be on lifelong anticoagulation. Patient was also started on prn hydroxazine for anxiety today. Patient will follow-up with cardiology in 1 week for wound check and then 1 month for device check. PTOT recommend patient go to rehabilitation. Plan will be to discharge patient to [facility] bed. Discharge discussed with: patient, family - Time Spent with Patient Total time spent providing and/or coordinating discharge services: Greater than 30 minutes - Discharge Medications Home Medications: Cholecalciferol (Vitamin D3) [Vitamin D3] 1,000 unit PO BID 09/18/15 [History] FLUoxetine HCl [Prozac] 10 mg PO QAM 08/04/16 [History] Budesonide/Formoterol 160/4.5 [Symbicort 160/4.5] 2 puff IH BIDR 08/11/16 [ History] Docusate [Colace] 100 mg PO BID 10/30/16 [History] Multivitamin [One Daily Essential] 1 each PO DAILY 10/30/16 [History] Oxygen 2 l NS AD 10/30/16 [History] Tiotropium [place] [Spiriva Respimat] 4 gm IH DAILY 04/11/17 [History] predniSONE [PredniSONE] 10 mg PO DAILY 04/11/17 [History] Aspirin [Lo-Dose Aspirin EC] 81 mg PO DAILY 08/31/17 [History] Albuterol Sulfate [Albuterol Inhaler] 2 puff IH Q4HR PRN 09/11/17 [History] Calcium Carbonate [Calcium] 500 mg PO DAILY 09/11/17 [History] HYDROcodone/Acet 5/325 mg [[place] 5-325 mg] 1 tab PO Q6HR PRN 10 Days #14 tablet 09/12/17 [Rx] Amoxicillin [Amoxil] 500 mg PO BID #1 capsule 09/27/17 [Rx] Apixaban [Eliquis] 5 mg PO BID tablet 09/27/17 [Rx] DiphenhydraMINE [Benadryl] 25 mg PO HS capsule 09/27/17 [Rx] Furosemide [Lasix] 40 mg PO DAILY tablet 09/27/17 [Rx] HydrOXYzine 10 mg PO HS tablet 09/27/17 [Rx] Melatonin 1.5 mg PO HS tablet 09/27/17 [Rx] Metoprolol [Lopressor] 25 mg PO BID tablet 09/27/17 [Rx] Omeprazole [PriLOSEC] 40 mg PO BIDAC capsule. 09/27/17 [Rx] Allergies/Adverse Reactions: 3 Allergy/AdvReac Type Severity Reaction Status Date / Time No Known Allergies Allergy Verified 09/11/17 06:35 Date of admission: 09/21/17 15:43 Primary care physician: Ursula Lott Consults: 09/21/17 19:18 Consult to Cardiology [CONS] Routine Comment: Consulting Provider: [facility] [place] Reason for Consult: HIGH GRADE AV/BLOCK Time Notified: 19:18 Call Completed: Yes 09/21/17 20:11 Consult to Pastoral Services [CONS] Routine Comment: 09/22/17 10:21 Consult to Speech Therapy [CONS] Routine Comment: Evaluate, develop and implement POC Reason for Consult: swallow evaluation Call Completed: No 09/24/17 08:10 Consult to Electrophysiology (EP) [CONS] Routine Consulting Provider: Electrophysiology [facility] Reason for Consult: complete heart block. Call Completed: Yes 09/24/17 14:35 Consult to Energy Conservation Specialist [CONS] Routine Reason for SW Consult: Clarification for POA and code status. 09/26/17 11:29 Consult to Occupational Therapy [CONS] Routine Comment: Evaluate, develop and implement POC Reason for Consult: Physical deconditioning Does patient have active BEDREST order?: No Is patient medically & hemodynamically stable?: Yes Patient assessed for mobility or mobilized this visit?: No Consult to Physical Therapy [CONS] Routine Comment: Evaluate, develop and implement POC Reason for Consult: Physical deconditioning Does patient have active BEDREST order?: No Is patient medically & hemodynamically stable?: Yes Patient assessed for mobility or mobilized this visit?: No Discharging clinician: Jorge Luis Hale Anticipated date of discharge: 09/27/17 - Constitutional Vitals: Temp Pulse Resp BP Pulse Ox 97.5 F L 59 22 141/79 99 09/27/17 11:01 09/27/17 11:01 09/27/17 11:01 09/27/17 11:01 09/27/17 11:01 General appearance: Present: cooperative, mild distress, A&O X 3, answers questions appropriately - Other Additional findings: General: Pleasant without distress HEENT: Head atraumatic, normocephalic, EOMI, PERRL, neck nontender to palpation , absent lymphadenopathy, Moist Mucous Membranes, Heart: paced Lungs: Clear to auscultation bilaterally Abdomen: Soft nontender, nondistended positive bowel sounds Skin: warm and dry, pacemaker placement intact with mild bloody drainage. withouth erythema or pus, absent tenderness Extremities: 1+ LLE edema, 2+ RLE edema Neuro: Cranial nerves II through XII intact, UE and LE sensation equal bilaterally, UE and LEstrength 4/5, alert oriented 3, Vascular: Pedal and radial pulses 2 out of 4 - Patient Status Disposition: Transfer Inpatient Rehab Fac Condition: Fair Functional capacity at discharge: wheelchair bound Overall status at discharge: patient is progressing back to baseline - Ambulatory Orders Ambulatory Orders: Complete Blood Count [HEME] Time Frame: 1 Week, Facility: [facility], Location: Lab - Discharge Instructions Instructions: Pacemaker (DC), Pacemaker (GEN), Peripheral Vascular Disorders ( DC), Chronic Obstructive Pulmonary Disease (DC) Follow Up With: Haydee Blue DO [Primary Care Provider] - 10/04/17 1:00 pm Additional Instructions: ACTIVITY: Moderate activity for the next 7 days. No lifting more than 5 pounds ( gallon of milk) for 4-6 weeks. Avoid lifting your arm on the same side as the device for 4 weeks. BATHING /SHOWERING: Do not remove the large bandage over the site for 2 days. Do not allow the device to get wet for 7-10 days. You may bathe/shower, but do not use soap and water on the site. When bathing, keep the site dry by covering with Saran wrap or a towel. WOUND CARE: The white steri-strips will start to peel away and come off after 14 days, or your doctor will remove them after [address] anything into or on top of the incision. Do not use cotton swabs. Do not use any antibiotic ointment or Vitamin E, change dressing with gauze every 24 hours if draining. REMINDERS: You may use electrical devices, such as, microwaves, hair dryers, electric razors, electric blankets, etc. as long as they are in good condition and kept 6 -8 inches away from the device. It is recommended to use cell phones on the opposite side of your device. Notify security personnel at the airport that you have a device before you go through airport security screening. When at places with security monitors, such as a grocery store, do not linger near these monitors. It is fine to walk past them in a normal manner. Refer to your owners manual for more specific directions. CARRY YOUR PACEMAKER/ICD CARD WITH YOU AT ALL TIMES Return to work as instructed per physician Resume driving as instructed per physician Keep all scheduled follow up appointments Resume medications as instructed Contact [facility] ( ) if: You develop excessive bleeding from insertion or wound site not controlled by applying pressure You develop a fever greater than 101 degrees Fahrenheit Your incision becomes reddened at or around the site Your incision develops yellowish or greenish drainage or development of white pimple-like bumps You experience excessive pain You develop swelling in your ankles You experience muscle switching You develop excessive hiccupping If you experience chest pain, shortness of breath, dizziness, or extreme tiredness, stop the activity and rest. Please notify [facility] office if you experience any of these symptoms and they are not relieved by rest please call 911! - Diet and Activity Activity: as per physical therapy Diet: low fat, low cholesterol, low salt diet <Cuba Perez - Last Filed: 09/27/17 18:49> Orders not resulted at time of discharge: Pending orders 09/23/17 08:27 Fecal Hemoccult [Occult Blood,Stool] [BF] Routine 09/23/17 10:37 CL Insert Permanent Pacemaker [CL] Routine 09/23/17 11:32 Culture,Blood [BC] Stat 09/23/17 16:57 Culture,Blood,Additional [BC] Stat Date of Encounter: 09/27/17 Hospital course: Ms. Boyer is a 82 year old female - Time Spent with Patient Total time spent providing and/or coordinating discharge services: Date of admission: 09/21/17 15:43 Primary care physician: Ursula Lott Consults: 09/21/17 19:18 Consult to Cardiology [CONS] Routine Comment: Consulting Provider: Cardiology [facility] Reason for Consult: HIGH GRADE AV/BLOCK Time Notified: 19:18 Call Completed: Yes 09/21/17 20:11 Consult to Pastoral Services [CONS] Routine Comment: 09/22/17 10:21 Consult to Speech Therapy [CONS] Routine Comment: Evaluate, develop and implement POC Reason for Consult: swallow evaluation Call Completed: No 09/24/17 08:10 Consult to Electrophysiology (EP) [CONS] Routine Consulting Provider: Electrophysiology Leanna Reason for Consult: complete heart block. Call Completed: Yes 09/24/17 14:35 Consult to Energy Conservation Specialist [CONS] Routine Reason for SW Consult: Clarification for POA and code status. 09/26/17 11:29 Consult to Occupational Therapy [CONS] Routine Comment: Evaluate, develop and implement POC Reason for Consult: Physical deconditioning Does patient have active BEDREST order?: No Is patient medically & hemodynamically stable?: Yes Patient assessed for mobility or mobilized this visit?: No Consult to Physical Therapy [CONS] Routine Comment: Evaluate, develop and implement POC Reason for Consult: Physical deconditioning Does patient have active BEDREST order?: No Is patient medically & hemodynamically stable?: Yes Patient assessed for mobility or mobilized this visit?: No - Constitutional Vitals: Temp Pulse Resp BP Pulse Ox 98.3 F 79 20 159/79 94 09/27/17 16:33 09/27/17 16:33 09/27/17 16:33 09/27/17 16:33 09/27/17 16:33 - Attending Attestation I performed a [id number] diagnostic evaluation of this patient and my medical decision-making was reviewed with the Resident Physician, Dr Jorge Luis Hale. I agree with the documented findings, disposition and treatment plan as described except to the extent set forth below. Patient is in no acute distress awake alert oriented. Heart exam is regular rate and rhythm S1-S2 no murmurs rubs or gallops. Pacemaker insertion site with some dried blood and covered with Steri-Strips, nontender to palpation. Lower extremity 3+ edema right greater than left. Plan: Discharge to rehabilitation. Wrap lower extremities below the knee with elastic gauze, low-tension to decrease edema. Elevate legs at rest. Cuba Perez MD
--- NOTE | 2017-09-27 12:37 | Electrocardiograph Report ---
[place] [id number] Test Date: 2017-09-26 Pat Name: Tiana Boyer Department: 110 Room: 2N15 Gender: F [employer]: REBECCA : 1935 Requested By: Wilberto Alonso Order Number: [id number] Reading MD: Jose L Gonzalez Measurements Intervals [place] Rate: 63 P: 83 WY: 143 QRS: -61 QRSD: 161 T: 64 QT: 483 QTc: 491 Interpretive Statements ELECTRONIC VENTRICULAR PACEMAKER Electronically Signed On 09-27-2017 12:35:51 EDT by Jose L Gonzalez
[2017-09-27] MEDS ORDERED: Furosemide 20 MG/2 ML VIAL IVP ONE (14:15)
--- NOTE | 2017-09-27 14:35 | Event Note ---
Date of Encounter: 09/27/17 Time of Encounter: 14:29 - Cardiology Event Note I was asked to check Ms. Boyer incision prior to discharge. She was noted to have oozing on the left side of the incision. Dressing changed twice due to saturation with blood since pacemaker was placed. Dressing changed priro to my arrival. Currently with dry dressing. Old blood seen on steri strips with moist area on left side. Incision is well proximated. No hematoma seen. Recommend pressure dressing for 24 hours. I will ask Vascular surgery if we can hold asa or plavix now that patient is on eliquis for PE. Hgb stable.
--- NOTE | 2017-09-27 14:59 | Event Note ---
Date of Encounter: 09/27/17 Time of Encounter: 14:57 - Cardiology Event Note Discussed Ac recommendations with Dr. Arevalo due to bloody drainage from PPM incision. Ok to stop plavix from vascular stanpoint and continue asa and eliquis.
[2017-09-27 16:36] VITALS: BP 159/79
== END 2017-09-27 18:05 | DRG 242 ==
LOC: EMEROO 10:45 → 2ANU 10:45 → SUATTDRO 15:43 → 2NNU 23:17
PROVIDERS: ADMIT Internal Medicine; ATTEND Internal Medicine